=== PATIENT | male | born 1950 | race Caucasian/White ===

== ENCOUNTER 2018-08-04 15:07 | Outpatient (CLI) | payer MEDICARE, OTHER ==
--- NOTE | 2018-08-05 12:36 | CT Report ---
Reason: PERSONAL HISTORY OF NICOTINE DEPENDENCE Procedure Date: 08/04/2018 Accession Number: [id number] / [id number] Procedure: CT - Chest/Lung Screen Low Dose W/O CPT Code: FULL RESULT: EXAM CT LUNG SCREEN EXAM DATE: 08/04/2018 03:31 PM. HISTORY: 68-year-old patient with [id number] smoking history. Currently smoking: Yes. . COMPARISON: None. TECHNIQUE: CT examination of the entire thorax without contrast was performed using low-dose technique. Thin section coronal, axial, sagittal and MIP axial images were obtained. In accordance with CT protocol optimization, one or more of the following dose reduction techniques were utilized for this exam: automated exposure control, adjustment of mA and/or KV based on patient size, or use of iterative reconstructive technique. FINDINGS: Nodules: Right upper lobe: None. Right middle lobe: None. Right lower lobe: None. Left upper lobe: None. Left lower lobe: None. Emphysema: Mild emphysematous changes are noted in the lung apices. Pleura: Unremarkable. Aorta: There is atherosclerosis of the aorta. Mediastinum: Unremarkable. Coronary calcifications: Diffuse calcified plaque is noted. Other pulmonary findings: Mild bronchiectasis is noted in the lung bases. Linear changes are also noted that may represent scarring or atelectasis. Other extrapulmonary findings: There appears to be a biliary stent. No intrahepatic biliary duct dilatation is noted. IMPRESSION: Lung-RADS ASSESSMENT CATEGORY: 1 - negative Probability of malignancy: Less than 1% Emphysematous changes of the lungs. Atherosclerosis of the aorta and coronary arteries. RECOMMENDATION: Recommend low-dose CT in 12 months. RADIA
== END 2018-08-04 15:08 | disposition home or self-care (01) ==
LOC: DI 15:07
PROVIDERS: ATTEND Family Medicine
DX: Z12.2 Encounter for screening for malignant neoplasm of respiratory organs (principal); F17.210 Nicotine dependence, cigarettes, uncomplicated

== ENCOUNTER 2019-09-25 14:57 | Emergency (ER) | payer MEDICARE, OTHER ==
[2019-09-25 15:20] LABS: BILIRUBIN,URINE NEGATIVE (NEGATIVE); GLUCOSE, URINE (UA) NEGATIVE (NEGATIVE); KETONES,URINE (UA) NEGATIVE (NEGATIVE); LEUKOCYTE ESTERASE, URINE LARGE (NEGATIVE); NITRITE,URINE NEGATIVE (NEGATIVE); OCCULT BLOOD,URINE LARGE (NEGATIVE); PH,URINE 6.5 PH (5.0-7.5); PROTEIN,URINE 30 mg/dL (NEGATIVE); UROBILINOGEN,URINE 0.2 (NORMAL) E.U./dL (NORMAL)
[2019-09-25 15:33] LABS: CLARITY,URINE HAZY (CLEAR)
[2019-09-25 15:47] LABS: BACTERIA,URINE Rare /HPF (None Seen); SQUAMOUS EPITHELIAL CELL,UR RARE Squamous (<= Few)
[2019-09-25] MEDS ORDERED: CIPROFLOXACIN 250 MG TABLET PO STA (16:37)
--- NOTE | 2019-09-25 16:42 | ED Physician Documentation ---
History of Present Illness - Stated complaint Stated Complaint: M - Chief complaint Chief Complaint: General - History obtained from History obtained from: Patient (69-year-old gentleman with prostatic hypertrophy presents with hematuria and dysuria and frequency starting today. Recently on Macrobid for UTI, it sounds like that urine was not cultured. No flank pain or fevers.) Review of Systems Constitutional: denies: Fever, Chills GI: denies: Abdominal Pain, Nausea, Vomiting, Diarrhea : reports: Dysuria, Frequency. denies: Incontinent PD PAST MEDICAL HISTORY - Present Medications Home Medications: Ambulatory Orders Medication Instructions Recorded Confirmed Ciprofloxacin HCl [Cipro] 500 mg PO BID #14 tablet 09/25/19 - Allergies Allergies/Adverse Reactions: Allergies Allergy/AdvReac Type Severity Reaction Status Date / Time No Known Drug Allergies Allergy Verified 09/25/19 15:04 PD ED PE NORMAL - Vitals Vital signs reviewed: Yes - General General: Alert and oriented X 3, No acute distress - Abdomen Abdomen: Soft, Non tender - Back Back: No CVA TTP - Neuro Neuro: Alert and oriented X 3, Normal speech Results - Vitals Vitals: Vital Signs - 24 hr 09/25/19 15:01 Temperature 36.6 C Heart Rate 87 Respiratory 16 Rate Blood Pressure 145/63 H O2 Saturation 95 Oxygen O2 Source Room air - Labs Labs: Laboratory Tests 09/25/19 15:13 Urine Color DARK YELLOW Urine Clarity HAZY Urine pH 6.5 Ur Specific [place] <=1.005 Urine Protein 30 H Urine Glucose (UA) NEGATIVE Urine Ketones NEGATIVE Urine Occult Blood LARGE H Urine Nitrite NEGATIVE Urine Bilirubin NEGATIVE Urine Urobilinogen 0.2 (NORMAL) Ur Leukocyte Esterase LARGE H Urine RBC 11-25 H Urine WBC >25 H Ur Squamous Epith Cells RARE Squamous Urine Bacteria Rare Ur Microscopic Review INDICATED Urine Culture Comments INDICATED Departure - Departure Disposition: 01 Home, Self Care Clinical Impression: Cystitis Instructions: ED UTI Cystitis Male Prescriptions: Ciprofloxacin HCl [Cipro] 500 mg PO BID #14 tablet Comments: We will culture your urine, the results should be done in 48-72 hours. If an antibiotic change is necessary we will call you. Return if worse in the meantime, especially if you develop increasing flank pain, fevers, or cannot keep down the medication.
[2019-09-25 17:04] VITALS: BP 122/91
== END 2019-09-25 17:04 | disposition home or self-care (01) ==
LOC: ED 14:57
DX: N30.91 Cystitis, unspecified with hematuria (principal); N40.1 Benign prostatic hyperplasia with lower urinary tract symptoms; R35.0 Frequency of micturition
CPT/HCPCS: 81001; 87086; 99283; A9270; 81003

== ENCOUNTER 2023-02-07 11:20 | Inpatient (IN) | payer MEDICARE, OTHER ==
[~2023-02-07 11:20] MED LIST: PIPERACILLIN/TAZOBACTAM 3.375 GM in SODIUM CHLORIDE 0.9% MINIBAG 100 ML IV SCH
[2023-02-07 12:06] LABS: BASOPHILS % (AUTO) 0.2 %; EOSINOPHILS % (AUTO) 0.1 %; HCT - HEMATOCRIT 42.8 % (42.0-52.0); HGB - HEMOGLOBIN 14.4 g/dL (14.0-18.0); LYMPHOCYTES # (AUTO) 0.8 10^3/uL (1.5-3.5); LYMPHOCYTES % (AUTO) 5.8 %; MEAN CORPUSCULAR HEMOGLOBIN 30.5 pg (27.0-31.0); MEAN CORPUSCULAR HGB CONC 33.6 g/dL (32.0-36.0); MEAN CORPUSCULAR VOLUME 90.7 fL (80.0-94.0); MEAN PLATELET VOLUME 10.5 fL (7.4-11.4); MONOCYTES % (AUTO) 7.5 %; NEUTROPHILS # (AUTO) 11.1 10^3/uL (1.5-6.6); NEUTROPHILS % (AUTO) 85.9 %; PLT - PLATELET COUNT 221 10^3/uL (130-450); RED BLOOD COUNT 4.72 10^6/uL (4.70-6.10); WHITE BLOOD COUNT 12.9 x10^3/uL (4.8-10.8)
[2023-02-07 12:16] LABS: ALBUMIN 3.3 g/dL (3.2-5.5); ALBUMIN/GLOBULIN RATIO 0.9 (1.0-2.2); BILIRUBIN,TOTAL 9.1 mg/dL (0.2-1.0); CALCIUM 8.8 mg/dL (8.5-10.3); CREATININE 0.6 mg/dL (0.6-1.3); POTASSIUM 3.6 mmol/L (3.5-4.5); TOTAL PROTEIN 6.8 g/dL (6.4-8.9)
[2023-02-07 12:19] LABS: INR 1.4 (0.8-1.2); PT - PROTHROMBIN TIME 15.7 secs (9.9-12.6)
[2023-02-07 12:26] LABS: PARTIAL THROMBOPLASTIN TIME 25.6 secs (24.9-33.3)
--- NOTE | 2023-02-07 12:39 | ED Physician Documentation ---
PD HPI ABD PAIN - Stated complaint Stated Complaint: WEAK,STOMACH PX,DISCOMFORT - Chief complaint Chief Complaint: Abd Pain - History obtained from History obtained from: Patient, Family - History of Present Illness Timing - onset: How many days ago (4) Timing - duration: Days (4) Timing - details: Gradual onset Pain level max: 6 Pain level now: 4 Quality: Aching, Pain Associated symptoms: No: Fever, Hematemesis, Diarrhea, Constipation, Melena, Hematochezia, Dysuria - Additional information Additional information: Patient is a 72-year-old male who presents to the emergency department with 4 days worth of abdominal pain. He states that it moves around but most consistently is in the epigastric area. He states he has just felt generally unwell. No nausea or vomiting. No diarrhea or constipation. His family noticed that he looked yellow today. No fevers. No chills. He does smoke but does not drink alcohol. He is on medication for BPH and hyperlipidemia. No changes to his medications. Denies any recent weight loss or any recent illness. No recent travel. Review of Systems Constitutional: denies: Fever, Chills Respiratory: denies: Cough GI: denies: Nausea, Vomiting, Diarrhea Skin: denies: Rash Musculoskeletal: denies: Neck pain, Back pain Neurologic: denies: Headache PD PAST MEDICAL HISTORY - Past Medical History Past Medical History: Yes Respiratory: COPD : Benign prostate hypertrophy - Past Surgical History Past Surgical History: Yes General: Cholecystectomy - Present Medications Home Medications: Ambulatory Orders Medication Instructions Recorded Confirmed Finasteride [Proscar] 5 mg PO DAILY 02/07/23 02/07/23 Fluticasone/Vilanterol [Breo 1 puffs IH DAILY 02/07/23 02/07/23 Ellipta 100-25 Mcg INH] Terazosin [Hytrin] 10 mg PO DAILY 02/07/23 02/07/23 - Allergies Allergies/Adverse Reactions: Allergies Allergy/AdvReac Type Severity Reaction Status Date / Time No Known Drug Allergies Allergy Verified 02/07/23 11:37 - Social History Does the pt smoke?: Yes Smoking Status: Current every day smoker Does the pt drink ETOH?: Yes Does the pt have substance abuse?: No - Immunizations Immunizations are current?: Yes PD ED PE NORMAL - Vitals Vital signs reviewed: Yes - General General: Alert and oriented X 3, No acute distress, Other (Jaundiced appearing male) - HEENT HEENT: PERRL (Positive scleral icterus), Moist mucous membranes - Neck Neck: Supple, no meningeal sign - Cardiac Cardiac: RRR, Strong equal pulses - Respiratory Respiratory: No respiratory distress, Clear bilaterally - Abdomen Abdomen: Soft, Non distended, Other (Mild tenderness to palpation epigastric without peritoneal signs) - Back Back: No CVA TTP, No spinal TTP - Derm Derm: Warm and dry - Extremities Extremities: No edema, No calf tenderness / cord - Neuro Neuro: Alert and oriented X 3 - Psych Psych: Normal mood, Normal affect Results - Vitals Vitals: Vital Signs - 24 hr 02/07/23 02/07/23 02/07/23 11:33 14:00 15:13 Temperature 36.4 C L Heart Rate 84 77 69 Respiratory 20 20 12 Rate Blood Pressure 99/60 138/103 H 136/69 H O2 Saturation 94 96 97 02/07/23 02/07/23 02/07/23 17:09 18:09 19:18 Temperature 36.8 C Heart Rate 80 72 71 Respiratory 16 11 L 14 Rate Blood Pressure 134/76 H 137/72 H 132/62 H O2 Saturation 96 96 94 02/07/23 02/07/23 20:45 22:09 Temperature Heart Rate 81 83 Respiratory 18 13 Rate Blood Pressure 131/72 H 133/80 H O2 Saturation 94 98 Oxygen O2 Source Room air - Labs Labs: Laboratory Tests 02/07/23 02/07/23 02/07/23 11:57 11:57 11:57 WBC 12.9 H RBC 4.72 Hgb 14.4 Hct 42.8 MCV 90.7 MCH 30.5 MCHC 33.6 RDW 14.0 Plt Count 221 MPV 10.5 Neut # (Auto) 11.1 H Lymph # (Auto) 0.8 L [place] # (Auto) 1.0 Eos # (Auto) 0.0 Baso # (Auto) 0.0 Absolute Nucleated RBC 0.00 Nucleated RBC % 0.0 PT 15.7 H INR 1.4 H APTT 25.6 Sodium 137 Potassium 3.6 Chloride 102 Carbon Dioxide 26 Anion Gap 9.0 BUN 19 Creatinine 0.6 Estimated GFR (MDRD) 132 Glucose 132 H Calcium 8.8 Total Bilirubin 9.1 H AST 75 H ALT 89 H Alkaline Phosphatase 302 H Total Protein 6.8 Albumin 3.3 Globulin 3.5 Albumin/Globulin Ratio 0.9 L Lipase 14 Urine Color Urine Clarity Urine pH Ur Specific [place] Urine Protein Urine Glucose (UA) Urine Ketones Urine Occult Blood Urine Nitrite Urine Bilirubin Urine Urobilinogen Ur Leukocyte Esterase Urine RBC Urine WBC Ur Squamous Epith Cells Urine Bacteria Urine Mucus Ur Microscopic Review Urine Culture Comments 02/07/23 15:45 WBC RBC Hgb Hct MCV MCH MCHC RDW Plt Count MPV Neut # (Auto) Lymph # (Auto) [place] # (Auto) Eos # (Auto) Baso # (Auto) Absolute Nucleated RBC Nucleated RBC % PT INR APTT Sodium Potassium Chloride Carbon Dioxide Anion Gap BUN Creatinine Estimated GFR (MDRD) Glucose Calcium Total Bilirubin AST ALT Alkaline Phosphatase Total Protein Albumin Globulin Albumin/Globulin Ratio Lipase Urine Color ORANGE Urine Clarity CLEAR Urine pH 6.5 Ur Specific [place] <=1.005 Urine Protein 30 H Urine Glucose (UA) NEGATIVE Urine Ketones Urine Occult Blood NEGATIVE Urine Nitrite NEGATIVE Urine Bilirubin COLOR INTERFERENCE Urine Urobilinogen 0.2 (NORMAL) Ur Leukocyte Esterase NEGATIVE Urine RBC 0-5 Urine WBC 0-3 Ur Squamous Epith Cells NONE SEEN Urine Bacteria Few Urine Mucus Few Strands Ur Microscopic Review INDICATED Urine Culture Comments NOT INDICATED - Rads (name of study) CT abdomen pelvis Relevant Findings:: Final report received, See rad report PD Medical Decision Making - ED course Complexity details: reviewed results, re-evaluated patient, considered dif ferential, d/w patient, d/w transportation sales consultant ED course: 72-year-old male with hyperbilirubinemia and what appears to be a biliary stent on CT scan. Patient did not know that he had a biliary stent in place. He states his gallbladder was taken out in [place] around 2009. He does not have a GI doctor here. He has not had any fevers but does have an elevated white blood cell count. I discussed the case with GI at [facility], Dr. Quiroz, He recommends transfer for stent removal. Recommend starting IV antibiotics. [facility] thinks that they will have a bed tonight, therefore the patient will be held in the emergency department on IV antibiotics and signed out to the oncoming emergency department physician. Patient is well-appearing, nontoxic. This document was made in part using voice recognition software. While efforts are made to proofread this document, sound alike and grammatical errors may occur. Departure - Departure Disposition: 02 Transfer Acute Care Hosp Clinical Impression: Biliary stent obstruction Qualifiers: Encounter type: initial encounter Qualified Code(s): T85.590A - Other mechanical complication of bile duct prosthesis, initial encounter Condition: Stable Forms: PCP List
[2023-02-07] MEDS ORDERED: iohexoL-300 100 ML VIAL ONE (12:42)
--- NOTE | 2023-02-07 13:24 | CT Report ---
PROCEDURE: CHEST W INDICATIONS: new onset jaundice, abd pain, smoker CONTRAST: Omni 300 100ml TECHNIQUE: After the administration of intravenous contrast, 1 mm axial images were acquired from the pulmonary apices through the posterior costophrenic angles. Axial 5 mm soft tissue kernel reconstructions were performed as well as 8 mm axial MIP and coronal and sagittal 5 mm reformations. For radiation dose reduction, the following was used: automated exposure control, adjustment of mA and/or kV according to patient size. COMPARISON: None. FINDINGS: Image quality: Excellent. Lungs and pleura: No consolidation. No pleural effusions. No pneumothorax. No suspicious pulmonary n odules which require follow up. Linear scarring at the bases as well as emphysematous change are pre sent. Mediastinum: Heart size is normal. No pericardial effusion. No large vessel abnormality. No mediastin al adenopathy by size criteria. Chest wall and lower neck: Thyroid is unremarkable. No axillary or supraclavicular adenopathy by size . Bones: No aggressive osseous abnormality. Upper Abdomen: There is prominence of the biliary system, incompletely visualized. IMPRESSION: Lungs are clear. Prominence of the biliary system. Please see CT abdomen pelvis report for further details. Reviewed by: Edelmira Shaikh MD on 02/07/2023 1:22 PM PDT Approved by: Edelmira Shaikh MD on 02/07/2023 1:22 PM PDT Station ID: [id number]
--- NOTE | 2023-02-07 13:33 | CT Report ---
PROCEDURE: ABDOMEN/PELVIS W INDICATIONS: new onset jaundice, abd pain, smoker CONTRAST: Omni 300 100ml TECHNIQUE: After the administration of IV contrast, 5 mm thick sections acquired from the diaphragms to the symp hysis. 5 mm thick coronal and sagittal reformats were acquired. For radiation dose reduction, the f ollowing was used: automated exposure control, adjustment of mA and/or kV according to patient size. COMPARISON: FINDINGS: Image quality: Excellent. Lung bases and heart: Unremarkable. Liver: No solid mass. Gallbladder and biliary tree: There is intra and extrahepatic biliary dilation. Biliary stent is pres ent. The latter is not visualized. Spleen: No splenomegaly. Pancreas: No pancreatic ductal dilation. Adrenals: No adrenal nodule. Kidneys and ureters: No hydronephrosis. No renal cystic lesion which requires follow up. No solid mas s. Bowel and peritoneum: No bowel distension. No pathologic free fluid. Colonic diverticula are present without inflammatory change. Lymph nodes: No central or retroperitoneal adenopathy. Vessels: No infrarenal aortic aneurysm. PELVIS Reproductive organs: Unremarkable. Bladder: No abnormal wall thickening, accounting for underdistension. Pelvic lymph nodes: No pelvic adenopathy by size criteria. Bones: No aggressive osseous abnormality. Other: Superior portion of the bladder is within the right inguinal canal. Small loop of bowel withou t incarceration or strangulation or obstruction is present in the left inguinal canal. IMPRESSION: Intra and extrahepatic biliary dilation with biliary stent. No priors are available for comparison. S ource of obstruction is not clearly delineated although cholangiocarcinoma should be considered. Reviewed by: Edelmira Shaikh MD on 02/07/2023 1:32 PM PDT Approved by: Edelmira Shaikh MD on 02/07/2023 1:32 PM PDT Station ID: [id number]
[2023-02-07] MEDS ORDERED: iohexoL-300 100 ML VIAL IVP ONE (15:16)
[2023-02-07 15:56] LABS: GLUCOSE, URINE (UA) NEGATIVE (NEGATIVE); LEUKOCYTE ESTERASE, URINE NEGATIVE (NEGATIVE); NITRITE,URINE NEGATIVE (NEGATIVE); OCCULT BLOOD,URINE NEGATIVE (NEGATIVE); PH,URINE 6.5 PH (5.0-7.5); PROTEIN,URINE 30 mg/dL (NEGATIVE); UROBILINOGEN,URINE 0.2 (NORMAL) E.U./dL (NORMAL)
[2023-02-07 16:07] LABS: CLARITY,URINE CLEAR (CLEAR)
[2023-02-07 16:12] LABS: BILIRUBIN,URINE COLOR INTERFERENCE (NEGATIVE)
[2023-02-07 16:13] LABS: BACTERIA,URINE Few /HPF (None Seen); MUCUS,URINE Few Strands; RBC,URINE 0-5 /HPF (0-5); SQUAMOUS EPITHELIAL CELL,UR NONE SEEN (<= Few); WBC,URINE 0-3 /HPF (0-3)
[2023-02-07] MEDS ORDERED: PIPERACILLIN/TAZOBACTAM 3.375 GM in SODIUM CHLORIDE 0.9% MINIBAG 100 ML IV STA (16:39)
[2023-02-07] MEDS ORDERED: SODIUM CHLORIDE 0.9% 1,000 ML IV STA (16:44)
[2023-02-07] MEDS: PIPERACILLIN/TAZOBACTAM 3.375 GM in SODIUM CHLORIDE 0.9% MINIBAG 100 ML IV SCH (23:12)
[2023-02-08] MEDS: PIPERACILLIN/TAZOBACTAM 3.375 GM in SODIUM CHLORIDE 0.9% MINIBAG 100 ML IV SCH ×2 (06:49→16:41)
[2023-02-08 07:39] LABS: BASOPHILS % (AUTO) 0.2 %; EOSINOPHILS % (AUTO) 0.2 %; HCT - HEMATOCRIT 38.4 % (42.0-52.0); HGB - HEMOGLOBIN 13.2 g/dL (14.0-18.0); LYMPHOCYTES # (AUTO) 1.3 10^3/uL (1.5-3.5); LYMPHOCYTES % (AUTO) 11.5 %; MEAN CORPUSCULAR HEMOGLOBIN 30.5 pg (27.0-31.0); MEAN CORPUSCULAR HGB CONC 34.4 g/dL (32.0-36.0); MEAN CORPUSCULAR VOLUME 88.7 fL (80.0-94.0); MEAN PLATELET VOLUME 10.4 fL (7.4-11.4); MONOCYTES # (AUTO) 1.1 10^3/uL (0.0-1.0); MONOCYTES % (AUTO) 9.6 %; NEUTROPHILS # (AUTO) 8.5 10^3/uL (1.5-6.6); PLT - PLATELET COUNT 209 10^3/uL (130-450); RED BLOOD COUNT 4.33 10^6/uL (4.70-6.10); RED CELL DISTRIBUTION WIDTH 14.4 % (12.0-15.0)
[2023-02-08 07:43] LABS: ALBUMIN 2.9 g/dL (3.2-5.5); BILIRUBIN,TOTAL 8.8 mg/dL (0.2-1.0); CALCIUM 8.3 mg/dL (8.5-10.3); CREATININE 0.5 mg/dL (0.6-1.3); POTASSIUM 3.4 mmol/L (3.5-4.5); TOTAL PROTEIN 5.9 g/dL (6.4-8.9)
--- NOTE | 2023-02-08 08:40 | ED Physician Documentation ---
ED Addendum - Addendum Addendum: Patient signed out to me by overnight physician. Patient is pending transfer to [facility] for biliary stent removal causing Obstructive jaundice.GREENHOUSE SPECIALIST notified me this morning that [facility] has called back stating that they still have no beds available and are at capacity and are not able to accept the patient at this time. They have stated that they may be able to perform the procedure if we are able to accept the patient back. 02/08/23 08:33 Discussed with admitting hospitalist Dr. Soriano whether we would be able to admit the patient once he has had his biliary stent removed. She states that we would be able to admit the patient here once he has had this procedure done for continued care. I have evaluated the patient at the bedside. His son is also present with him. Discussed current plan which is to reach back out to [facility] to see if they would be able to do the procedure to have the biliary stent removed and then have the patient brought back to [facility] for continued care. He is agreeable to this. He also understands that if this plan is not feasible then we will look to alternate hospitals that are able to accommodate him.Repeat labs this morning are relatively unchanged with only minimal decrease in bilirubin from 9.1 to 8.8. Patient has remained afebrile. Vital signs have been stable. Continues on IV Zosyn which was started yesterday. 02/08/23 17:28 Pt signed out at shift change. He is currently at [facility] to have his biliary stent removed. He will be transferred back to our hospital once procedure is completed with plan for admission here.
--- NOTE | 2023-02-08 21:29 | ED Physician Documentation ---
ED Addendum - Addendum Addendum: 02/08/23 21:27 Patient returned from [facility] where he had an ERCP performed his old stent was removed had a biliary sphincterotomy and sphincteroplasty. Stones and sludge were removed from the bile duct. There was purulent drainage as well. He was transferred back to the emergency department for admission. Recommendation from GI to continue IV antibiotics, follow LFTs, avoid NSAIDs and anticoagulants for 72 hours. Follow-up for a repeat ERCP in 4 to 6 weeks for stent removal. Will consult the hospitalist for admission for continued IV antibiotics and further care. Discussed with hospitalist who accepts for admission. This document was made in part using voice recognition software. While efforts are made to proofread this document, sound alike and grammatical errors may occur. Departure - Departure Disposition: [address] [facility] DC/Xfer Clinical Impression: Cholangitis Biliary stent obstruction Qualifiers: Encounter type: initial encounter Qualified Code(s): T85.590A - Other mechanical complication of bile duct prosthesis, initial encounter Condition: Stable Discharge Date/Time: 02/08/23 22:11
[2023-02-08] MEDS ORDERED: ACETAMINOPHEN 325 MG TABLET PO PRN (21:50)
[2023-02-08] MEDS ORDERED: MORPHINE 2 MG/ML CARPUJECT IVP PRN (21:50)
[2023-02-08] MEDS ORDERED: SODIUM CHLORIDE FLUSH 0.9% 10 ML SYRINGE IVP PRN (21:50)
[2023-02-08] MEDS ORDERED: ONDANSETRON 4 MG/2 ML VIAL IVP PRN (21:50)
--- NOTE | 2023-02-08 22:09 | HISTORY & PHYSICAL EXAMINATION ---
Chief Complaint - Chief Complaint Chief Complaint: Abdominal pain History of Present Illness - History of Present Illness HPI Comment/Other: 72 y old male with PMH Tobacco abuse, COPD, BPH, hyperlipidemia, H/O cholecystectomy 2009, biliary stent, presented to the ER due to abdominal pain for 4 days.Pt describes the pain in epigastric area, intermittent, moderate in intensity, sharp in nature associated with nausea.Denies fever, vomiting, diarrhea, constipation, chest pain, SOB, symtoms. On presentaion , pt was afebrile Labs showed leukocytosis, abnormal LFT`s with hyyperbilirubinemia, Tbili 9.1 CT abdomen showed biliary stent In ER, patient was given zosyn GI at [facility] was consulted. Patient was transferred to [facility] s/p ERCP, sphinterotomy, sphincteroplasty, biliary sluge and pus removal and replacement of biliary stent. GI rec IV Abx, monitor LFTs and repeat ESRP in 6 week for the removal of biliary stent Patient was transferred back to [facility] Patient is admitted due to Acute cholangitis, ostructive jaundice s/p ERCP, abdominal pain History - Past Medical History Respiratory: reports: COPD : reports: Benign prostate hypertrophy - Past Surgical History General: reports: Cholecystectomy Meds/Allgy - Home Medications Home Medications: Ambulatory Orders Medication Instructions Recorded Confirmed Finasteride [Proscar] 5 mg PO DAILY 02/07/23 02/07/23 Fluticasone/Vilanterol [Breo 1 puffs IH DAILY 02/07/23 02/07/23 Ellipta 100-25 Mcg INH] Terazosin [Hytrin] 10 mg PO DAILY 02/07/23 02/07/23 - Allergies Allergies/Adverse Reactions: Allergies Allergy/AdvReac Type Severity Reaction Status Date / Time No Known Drug Allergies Allergy Verified 02/07/23 11:37 Review of Systems - Other Findings Other Findings: 10 points systems were reviewed and were negative except mentioned in HPI Exam - Vital Signs Vital Signs: Vital Signs x48h Temp Pulse Resp BP Pulse Ox O2 Flow Rate 02/08/23 20:25 36.7 C 56 L 13 133/69 H 97 2 02/08/23 14:24 36.7 C 65 18 120/59 L 95 - Physical Exam General Appearance: positive: No acute distress, Alert Eyes Bilateral: positive: Normal inspection, Other (JAUNDICE) ENT: positive: ENT inspection nml Neck: positive: Nml inspection Respiratory: positive: No respiratory distress, Breath sounds nml Cardiovascular: positive: Regular rate & rhythm Abdomen: positive: Non-tender, Nml bowel sounds Skin: positive: No rash Extremities: positive: No pedal edema Neurologic/Psychiatric: positive: Oriented x3, Motor nml Conclusion/Plan - Lab Results Fish Bones: 02/08/23 07:12 02/08/23 07:12 - Other Other Results/Comments: A: Acute cholangitis Obstructive jaundiice s/p ERCP and biliary stent replacemnet Hyperbiliribinemia Abnormal LFTs Abdominal pain Leukocytosis Tobacco abuse COPD BPH Hyperlipidemia Plan: Admit in Med Surg Clear liquid diet Follow cultures NS @ 100 cc/h Strat zosyn Supportive care Repeat CBC, CMP in am Monitor LFTs DVT prophylaxic: SCD Full code Patient is admitted as inpatient as more than 2 midnight stay is expected
[2023-02-08] MEDS: SODIUM CHLORIDE 0.9% 1,000 ML IV SCH (22:34)
[2023-02-09] MEDS: SODIUM CHLORIDE FLUSH 0.9% 10 ML SYRINGE IVP SCH ×3 (00:31→18:05)
[2023-02-09 05:53] LABS: BASOPHILS % (AUTO) 0.2 %; HCT - HEMATOCRIT 38.1 % (42.0-52.0); HGB - HEMOGLOBIN 12.7 g/dL (14.0-18.0); LYMPHOCYTES % (AUTO) 13.2 %; MEAN CORPUSCULAR HEMOGLOBIN 30.2 pg (27.0-31.0); MEAN CORPUSCULAR HGB CONC 33.3 g/dL (32.0-36.0); MEAN CORPUSCULAR VOLUME 90.7 fL (80.0-94.0); MEAN PLATELET VOLUME 10.8 fL (7.4-11.4); MONOCYTES % (AUTO) 3.8 %; NEUTROPHILS % (AUTO) 82.1 %; PLT - PLATELET COUNT 210 10^3/uL (130-450); RED CELL DISTRIBUTION WIDTH 14.6 % (12.0-15.0); WHITE BLOOD COUNT 10.1 x10^3/uL (4.8-10.8)
[2023-02-09] MEDS ORDERED: PIPERACILLIN/TAZOBACTAM 3.375 GM in SODIUM CHLORIDE 0.9% MINIBAG 100 ML IV SCH (06:00)
[2023-02-09 06:05] LABS: ALBUMIN 2.8 g/dL (3.2-5.5); ALBUMIN/GLOBULIN RATIO 0.9 (1.0-2.2); BILIRUBIN,TOTAL 4.6 mg/dL (0.2-1.0); CALCIUM 8.1 mg/dL (8.5-10.3); CREATININE 0.4 mg/dL (0.6-1.3); POTASSIUM 3.9 mmol/L (3.5-4.5); TOTAL PROTEIN 5.8 g/dL (6.4-8.9)
[2023-02-09 06:07] LABS: ABNORMAL LYMPHS % (MANUAL) 0 %
[2023-02-09 06:36] LABS: BAND NEUTROPHILS % (MANUAL) 5 %; LYMPHOCYTES # (MANUAL) 0.8 10^3/uL (1.5-3.5); LYMPHOCYTES % (MANUAL) 8 %; MONOCYTES # (MANUAL) 0.1 10^3/uL (0.0-1.0); NEUTROPHILS # (MANUAL) 9.2 10^3/uL (1.5-6.6); PLATELET ESTIMATE, MANUAL NORMAL (130-450,000) (NORMAL); RBC MORPHOLOGY (MULTIPLE) NORMAL APPEARANCE (NORMAL)
[2023-02-09 06:37] LABS: DIFFERENTIAL COMMENT MANUAL DIFFERENTIAL; WBC MORPHOLOGY (MULTIPLE) 1+ TOXIC GRANULATION (NORMAL)
[2023-02-09] MEDS: PANTOPRAZOLE 40 MG VIAL IVP SCH (08:43)
[2023-02-09] MEDS: SODIUM CHLORIDE 0.9% 1,000 ML IV SCH ×2 (08:44→22:43)
--- NOTE | 2023-02-09 08:52 | PHARMACY PROGRESS NOTE ---
- Best Possible Medication History Admit Date and Time: 02/08/23 7800 Medication History completed: Yes Patient Interview: Completed Secondary Source(s): Pharmacy records As the person ultimately responsible for medication therapy, providers are able to order a medication from an existing home medication list in [facility] via the "Reconcile Routine" prior to Confirmation of that medication by ground support equipment mechanic. Such practice is discouraged except when the physician, in their clinical judgment, deems that a medical need exists for a medication without regard to previous use.
--- NOTE | 2023-02-09 09:24 | XRAY Report ---
PROCEDURE: Chest 1 View X-Ray INDICATIONS: VTach, Hx COPD TECHNIQUE: One view of the chest was acquired. COMPARISON: CT chest dated 02/07/2023. FINDINGS: Surgical changes and devices: None. Lungs and pleura: No pleural effusions or pneumothorax. Lungs are clear. Hyperaeration and flatteni ng of the hemidiaphragms Mediastinum: Mediastinal contours appear normal. Heart size is normal. Bones and chest wall: No suspicious bony lesions. Overlying soft tissues appear unremarkable. IMPRESSION: No acute cardiopulmonary process. No focal consolidation. Findings compatible with chronic obstructiv e pulmonary physiology. Reviewed by: Jose Luis Brown MD on 02/09/2023 8:23 AM STEVEN Approved by: Jose Luis Brown MD on 02/09/2023 8:23 AM STEVEN Station ID: [id number]
[2023-02-09 09:32] LABS: CALCIUM 8.1 mg/dL (8.5-10.3)
--- NOTE | 2023-02-09 10:04 | PROVIDER PROGRESS NOTE ---
Assessment/Plan - Problem List (1) Acute cholangitis Assessment/Plan: He presented with elevated white blood count, abdominal pain, very elevated LFTs. Imaging showed that a biliary stent is in place. He underwent an ERCP at [facility]. They were findings were sludge, gallstones and polyps i n the bile duct. He has no gallbladder, he is status post colectomy Plan: Continue with IV antibiotics Follow CBC daily Await any culture results from our ER or from what we may expect from the [facility] Continue with IV fluids since he is only on a clear liquid diet Continue with as needed meds for pain (2) Biliary stent obstruction Qualifiers: Qualified Code(s): T85.590A - Other mechanical complication of bile duct prosthesis, initial encounter Assessment/Plan: He is S/P a biliary stent,which the patient did not even remember having. He did remember having his gallbladder removed He presented with obstructive jaundice and hyperbiliribinemia and abnormal LFTs, Leukocytosis, Abdominal pain He had an ERCP yesterday at [facility] then was transferred back to our hospital GI specialist wanted him on antibx, clear liquid diet and to avoid anticoagulant or antiplatelet meds for 72-hour, as per the ED note (I have no records myself to review, from [facility]). Plan: Continue empiric iv Zosyn Continue clear liquid diet Remain off of his home daily aspirin dose (3) Non-sustained V. Tach At 0830 today, pt had a non-sustained run of monomorphic VT, 12 beats. He was asymptomatic with it Plan: We will check his magnesium and 2 troponins today. We will obtain an EKG and a chest x-ray. I interpreted his EKG which showed; sinus bradycardia, rate 40 with frequent PACs, rare PVCs, low voltage across the precordium consistent with cor pulmonale, diffuse T wave flattening. The CXR showed COPD, nothing acute. (4) New onset Afib This afternoon, his RN showed me a telemetry strip that he wanted new onset A- fib. The rate is at 90-100. BP stable and he does not sense palpitaions. However as this is occurring, he is having urinary retention of greater than 500 cc. Perhaps parasympathetic stimulation from an over-distended bladder has somehow added to this A-fib Plan: He already had an EKG today. We will check a magnesium, 2 troponins and his thyroid function tests. (5) Acute urinary retention He had 600 cc urinary rtn after voiding, described to me by his RN Plan: Will order as needed straight cath if he has more than 500 cc We need to restart his BPH meds (6) COPD without exacerbation As per Hx. The chest x-ray that was done today shows that he has changes of emphysema of his lungs. EKG shows low voltage in the precordium also consistent with very significant COPD. At home he is on inhaler meds. Clinically he is not in a COPD exacerbation currently Plan: We will continue his bronchodilators (7) Tobacco abuse He tells me he is down to 3 cigarettes/day, used to be a heavier smoker. Plan: Smoking cessation was discussed with the patient Will order Nicotine patch (7) Hyperlipidemia Plan: I will order resumption of his statin med when he is on solid food - Current Meds Current Meds: Current Medications Generic Name Dose Route Start Last Admin Trade Name Freq PRN Reason Stop Dose Admin Sodium Chloride 1,000 mls @ 100 mls/hr 02/08/23 22:00 02/09/23 08:44 Normal Saline 0.9% IV 100 mls/hr .Q10H DRISS Administration Pantoprazole Sodium 40 mg 02/09/23 09:00 02/09/23 08:43 Pantoprazole 40 Mg Vial IVP 40 mg DAILY DRISS Administration Sodium Chloride 10 ml 02/09/23 01:00 02/09/23 08:44 Sodium Chloride Flush 0.9% 10 Ml Syringe IVP 10 ml 0100,0900,1700 DRISS Administration - Lab Result Fish Bone Diagrams: 02/09/23 05:27 02/09/23 05:27 - EKG Results EKG Interpreted Independently: Yes EKG Comparison: Old EKG unavailable EKG Findings: Sinus bradycardia, rate 40 with frequent PACs, rare PVCs, low voltage across the precordium consistent with cor pulmonale, diffuse T wave flattening. No prior EKG available for comparison. - Additional Planning My Orders: My Active Orders 02/09/23 08:59 Telemetry- [RC] Q4HR 02/10/23 05:00 CALCIUM [CHEM] DAILYLAB CBC - COMP BLD CT W/AUTO DIFF [HEME] DAILYLAB COMPREHENSIVE METABOLIC PANEL [CHEM] DAILYLAB MAGNESIUM [CHEM] DAILYLAB PHOSPHORUS [CHEM] DAILYLAB 02/11/23 05:00 CBC - COMP BLD CT W/AUTO DIFF [HEME] DAILYLAB COMPREHENSIVE METABOLIC PANEL [CHEM] DAILYLAB 02/12/23 05:00 CBC - COMP BLD CT W/AUTO DIFF [HEME] DAILYLAB COMPREHENSIVE METABOLIC PANEL [CHEM] DAILYLAB 02/13/23 05:00 CBC - COMP BLD CT W/AUTO DIFF [HEME] DAILYLAB COMPREHENSIVE METABOLIC PANEL [CHEM] DAILYLAB Subjective - Subjective Patient Reports: Feeling Better (Denies pain with his clear liquid diet) Objective Vital Signs: Vital Signs - 24 hr 02/08/23 02/08/23 02/08/23 13:27 14:24 20:25 Temperature 36.7 C 36.7 C Heart Rate 69 65 56 L Heart Rate [ Brachial] Heart Rate [ Monitoring electrodes] Respiratory 18 18 13 Rate Blood Pressure 97/46 L 120/59 L 133/69 H Blood Pressure [Right Brachial artery] O2 Saturation 93 95 97 If not protocol 2 : Oxygen Flow, liters/minute 02/08/23 02/08/23 02/08/23 22:00 22:02 23:14 Temperature 37.5 C Heart Rate 57 L Heart Rate [ 55 L Brachial] Heart Rate [ Monitoring electrodes] Respiratory 14 16 Rate Blood Pressure 129/55 L Blood Pressure 124/66 [Right Brachial artery] O2 Saturation 100 94 If not protocol 2 : Oxygen Flow, liters/minute 02/09/23 02/09/23 06:00 07:28 Temperature 36.9 C 36.5 C Heart Rate Heart Rate [ 58 L Brachial] Heart Rate [ 54 L Monitoring electrodes] Respiratory 20 18 Rate Blood Pressure Blood Pressure 130/78 118/59 L [Right Brachial artery] O2 Saturation 94 96 If not protocol : Oxygen Flow, liters/minute Oxygen O2 Source Room air I&O (Last 24 Hrs): Intake and Output Totals x24h 02/07/23 02/08/23 02/09/23 23:59 23:59 23:59 Intake Total 8752 166 8996 Output Total 300 Balance 407 189 3661 General: Alert, Oriented x3 HEENT: Mucous membr. moist/pink, Other (Sclerae icteric) Neck: Supple (Has a long son, difficult to assess JVP) Neuro: Alert, Non Focal Cardiovascular: Regular rate, No murmurs Respiratory: No respiratory distress, Breath sounds nml Abdomen: Normal bowel sounds, Soft, No tenderness, Other (Moderately distended, hypertympanic) Extremities: No clubbing, No edema, No tenderness/swelling - Results Results: Laboratory Results WBC 10.1 x10^3/uL (4.8-10.8) 02/09/23 05:27 RBC 4.20 10^6/uL (4.70-6.10) L 02/09/23 05:27 Hgb 12.7 g/dL (14.0-18.0) L 02/09/23 05:27 Hct 38.1 % (42.0-52.0) L 02/09/23 05:27 MCV 90.7 fL (80.0-94.0) 02/09/23 05:27 MCH 30.2 pg (27.0-31.0) 02/09/23 05:27 MCHC 33.3 g/dL (32.0-36.0) 02/09/23 05:27 RDW 14.6 % (12.0-15.0) 02/09/23 05:27 Plt Count 210 10^3/uL (130-450) 02/09/23 05:27 MPV 10.8 fL (7.4-11.4) 02/09/23 05:27 Neut # (Auto) Not Reportable 02/09/23 05:27 Lymph # (Auto) Not Reportable 02/09/23 05:27 [place] # (Auto) Not Reportable 02/09/23 05:27 Eos # (Auto) Not Reportable 02/09/23 05:27 Baso # (Auto) Not Reportable 02/09/23 05:27 Absolute Nucleated RBC Not Reportable 02/09/23 05:27 Total Counted 100 02/09/23 05:27 Band Neuts % (Manual) 5 % (0-10) 02/09/23 05:27 Abnorm Lymph % (Manual) 0 % 02/09/23 05:27 Nucleated RBC % Not Reportable 02/09/23 05:27 Neutrophils # (Manual) 9.2 10^3/uL (1.5-6.6) H 02/09/23 05:27 Lymphocytes # (Manual) 0.8 10^3/uL (1.5-3.5) L 02/09/23 05:27 Monocytes # (Manual) 0.1 10^3/uL (0.0-1.0) 02/09/23 05:27 Eosinophils # (Manual) 0.0 10^3/uL (0-0.7) 02/09/23 05:27 Basophils # (Manual) 0.0 10^3/uL (0-0.1) 02/09/23 05:27 Differential Comment MANUAL DIFFERENTIAL 02/09/23 05:27 WBC Morphology 1+ TOXIC GRANULATION (NORMAL) 02/09/23 05:27 Platelet Estimate NORMAL (130-450,000) (NORMAL) 02/09/23 05:27 RBC Morph Micro Appear NORMAL APPEARANCE (NORMAL) 02/09/23 05:27 PT 15.7 secs (9.9-12.6) H 02/07/23 11:57 INR 1.4 (0.8-1.2) H 02/07/23 11:57 APTT 25.6 secs (24.9-33.3) 02/07/23 11:57 Sodium 139 mmol/L (135-145) 02/09/23 05:27 Potassium 3.9 mmol/L (3.5-4.5) 02/09/23 05:27 Chloride 109 mmol/L (101-111) 02/09/23 05:27 Carbon Dioxide 24 mmol/L (21-32) 02/09/23 05:27 Anion Gap 6.0 (6-13) 02/09/23 05:27 BUN 15 mg/dL (6-20) 02/09/23 05:27 Creatinine 0.4 mg/dL (0.6-1.3) L 02/09/23 05:27 Estimated GFR (MDRD) 211 (>89) 02/09/23 05:27 Glucose 137 mg/dL (74-104) H 02/09/23 05:27 Calcium 8.1 mg/dL (8.5-10.3) L 02/09/23 05:27 Calcium 8.1 mg/dL (8.5-10.3) L 02/09/23 05:27 Magnesium 2.0 mg/dL (1.7-2.3) 02/09/23 05:27 Total Bilirubin 4.6 mg/dL (0.2-1.0) H 02/09/23 05:27 AST 63 IU/L (10-42) H 02/09/23 05:27 ALT 67 IU/L (10-60) H 02/09/23 05:27 Alkaline Phosphatase 302 IU/L (42-121) H 02/09/23 05:27 Troponin I High Sens 15.3 ng/L (2.3-19.7) 02/09/23 09:10 Total Protein 5.8 g/dL (6.4-8.9) L 02/09/23 05:27 Albumin 2.8 g/dL (3.2-5.5) L 02/09/23 05:27 Globulin 3.0 g/dL (2.1-4.2) 02/09/23 05:27 Albumin/Globulin Ratio 0.9 (1.0-2.2) L 02/09/23 05:27 Lipase 21 U/L (11-82) 02/08/23 07:12 Urine Color ORANGE 02/07/23 15:45 Urine Clarity CLEAR (CLEAR) 02/07/23 15:45 Urine pH 6.5 PH (5.0-7.5) 02/07/23 15:45 Ur Specific [place] <=1.005 (1.002-1.030) 02/07/23 15:45 Urine Protein 30 mg/dL (NEGATIVE) H 02/07/23 15:45 Urine Glucose (UA) NEGATIVE mg/dL (NEGATIVE) 02/07/23 15:45 Urine Ketones mg/dL (NEGATIVE) 02/07/23 15:45 Urine Occult Blood NEGATIVE (NEGATIVE) 02/07/23 15:45 Urine Nitrite NEGATIVE (NEGATIVE) 02/07/23 15:45 Urine Bilirubin COLOR INTERFERENCE (NEGATIVE) 02/07/23 15:45 Urine Urobilinogen 0.2 (NORMAL) E.U./dL (NORMAL) 02/07/23 15:45 Ur Leukocyte Esterase NEGATIVE (NEGATIVE) 02/07/23 15:45 Urine RBC 0-5 /HPF (0-5) 02/07/23 15:45 Urine WBC 0-3 /HPF (0-3) 02/07/23 15:45 Ur Squamous Epith Cells NONE SEEN (<= Few) 02/07/23 15:45 Urine Bacteria Few /HPF (None Seen) 02/07/23 15:45 Urine Mucus Few Strands 02/07/23 15:45 Ur Microscopic Review INDICATED 02/07/23 15:45 Urine Culture Comments NOT INDICATED 02/07/23 15:45
[2023-02-09] MEDS: FINASTERIDE 5 MG TABLET PO SCH (10:24)
[2023-02-09] MEDS: TERAZOSIN 2 MG CAPSULE PO SCH (10:26)
[2023-02-09] MEDS: PIPERACILLIN/TAZOBACTAM 3.375 GM in SODIUM CHLORIDE 0.9% MINIBAG 100 ML IV SCH ×2 (14:00→22:00)
[2023-02-10 05:19] LABS: BASOPHILS % (AUTO) 0.2 %; EOSINOPHILS % (AUTO) 0.2 %; HGB - HEMOGLOBIN 12.6 g/dL (14.0-18.0); LYMPHOCYTES # (AUTO) 2.7 10^3/uL (1.5-3.5); LYMPHOCYTES % (AUTO) 20.6 %; MEAN CORPUSCULAR HEMOGLOBIN 30.4 pg (27.0-31.0); MEAN CORPUSCULAR HGB CONC 33.2 g/dL (32.0-36.0); MEAN CORPUSCULAR VOLUME 91.8 fL (80.0-94.0); MEAN PLATELET VOLUME 10.9 fL (7.4-11.4); MONOCYTES # (AUTO) 0.8 10^3/uL (0.0-1.0); MONOCYTES % (AUTO) 5.9 %; NEUTROPHILS # (AUTO) 9.3 10^3/uL (1.5-6.6); NEUTROPHILS % (AUTO) 72.1 %; PLT - PLATELET COUNT 233 10^3/uL (130-450); RED BLOOD COUNT 4.14 10^6/uL (4.70-6.10); RED CELL DISTRIBUTION WIDTH 15.2 % (12.0-15.0); WHITE BLOOD COUNT 12.9 x10^3/uL (4.8-10.8)
[2023-02-10 05:32] LABS: ALBUMIN 2.7 g/dL (3.2-5.5); BILIRUBIN,TOTAL 3.2 mg/dL (0.2-1.0); CALCIUM 7.9 mg/dL (8.5-10.3); CREATININE 0.5 mg/dL (0.6-1.3); PHOSPHORUS 2.5 mg/dL (3.7-7.2); POTASSIUM 3.4 mmol/L (3.5-4.5); TOTAL PROTEIN 5.5 g/dL (6.4-8.9)
[2023-02-10 05:46] LABS: THYROID STIMULATING HORMONE 13.99 uIU/mL (0.34-5.60)
[2023-02-10] MEDS: PIPERACILLIN/TAZOBACTAM 3.375 GM in SODIUM CHLORIDE 0.9% MINIBAG 100 ML IV SCH ×3 (06:10→21:31)
[2023-02-10] MEDS: SODIUM CHLORIDE FLUSH 0.9% 10 ML SYRINGE IVP SCH ×3 (06:11→21:31)
[2023-02-10 06:25] LABS: PLATELET ESTIMATE, MANUAL NORMAL (130-450,000) (NORMAL); RBC MORPHOLOGY (MULTIPLE) NORMAL APPEARANCE (NORMAL)
[2023-02-10] MEDS: TERAZOSIN 2 MG CAPSULE PO SCH (07:46)
[2023-02-10] MEDS: FINASTERIDE 5 MG TABLET PO SCH (07:46)
[2023-02-10] MEDS: PANTOPRAZOLE 40 MG VIAL IVP SCH (07:46)
[2023-02-10] MEDS: SODIUM CHLORIDE 0.9% 1,000 ML IV SCH (07:46)
--- NOTE | 2023-02-10 08:24 | PROVIDER PROGRESS NOTE ---
Assessment/Plan - Problem List (1) Acute cholangitis Assessment/Plan: He presented with elevated white blood count, abdominal pain, very elevated LFTs. Imaging showed that a biliary stent is in place, which he did not know he had, said it was [id number] placed when he had his cholecystectomy 7 years ago. On the day of admission, he was first transferred from our ER and underwent an ERCP at [facility]. The findings were sludge, gallstones and polyps in the bile duct. He has no gallbladder. He then returned to our ER via ambulance and was admitted. The cake mixer recommended antibiotics, and no antiplatelet or anticoagulants for 72 hours. Plan: Continue with IV antibiotics Follow CBC daily Await any culture results from our ER or from [facility] Start tapering down his IV fluids as I will advance his diet from clear liquid diet to soft low fat diet today Continue with as needed meds for pain (2) Biliary stent obstruction Qualifiers: Qualified Code(s): T85.590A - Other mechanical complication of bile duct prosthesis, initial encounter Assessment/Plan: He is S/P a biliary stent, which the patient did not even remember having. He did remember having his gallbladder removed He presented with obstructive jaundice and hyperbiliribinemia and abnormal LFTs, Leukocytosis, Abdominal pain He had an ERCP done at [facility] then was transferred back to our hospital GI specialist wanted him on antibx, clear liquid diet and to avoid anticoagulant or antiplatelet meds for 72-hour. These recommendations are as per the ED note (I have no records myself to review, from [facility]). Plan: Continue empiric iv Zosyn Advance his clear liquid diet today Remain off of his home daily aspirin dose (3) Non-sustained V. Tach On 02/09, pt had a non-sustained run of monomorphic VT, 12 beats. He was asymptomatic with it We checked his magnesium and 2 troponins and those were unremarkable. But Phos was low. His EKG showed; sinus bradycardia, rate 40 with frequent PACs, rare PVCs, low voltage across the precordium consistent with cor pulmonale, diffuse T wave flattening. A CXR was done and showed COPD, nothing acute. Plan: We will obtain an Echo to evaluate his LV (4) Paroxysmal Afib On 02/09 a telemetry strip showed new onset A-fib. The ventr rate was at 90- 100.When it developed, ihe was having urinary retention of greater than 500 cc. Perhaps parasympathetic stimulation from an over-distended bladder has somehow caused this A-fib His magnesium and 2 troponins were OK. I also checked his TSH which came back very elevated at 13, suggesting hypothyroidism, but not hyper Plan: Since he is back in sinus rhythm and is bradycardic at 40-50, he has underlying conduction system disease therefore, he probably has SSS. Patient was already on an aspirin daily before this event, however his dose was 325 2 tablets a day. The aspirin cannot be resumed until 72 hours after the ERCP, per the GI specialist (5) Hypothyroidosm TSH which came back very elevated at 13, suggesting hypothyroidism. I therefore checked his free T4 which is in the low-normal range, at 0.81. All labs were reviewed. Perhaps hypothyroidism is the cause of his marked bradycardia Plan: I will start him on a Synthroid dose of 75 mcg daily before meals. This will need F/U by his PCP after discharge. (6) BPH After admission, he had 600 cc urinary retention after voiding, described to me by his RN yesterday Plan: I ordered as needed straight cath if he has more than 500 cc I restarted his BPH meds Proscar and Hytrin. (7) COPD without exacerbation As per Hx. The chest x-ray that was done today shows that he has changes of emphysema of his lungs. EKG shows low voltage in the precordium also consistent with very significant COPD. At home he is on inhaler meds. Clinically he is not in a COPD exacerbation currently Plan: We will continue his bronchodilators (8) Tobacco use He tells me he is down to 3 cigarettes/day, used to be a heavier smoker. Plan: Smoking cessation was discussed with the patient Cont Nicotine patch (9) Hyperlipidemia Plan: I will order resumption of his statin med when he is on solid food - Current Meds Current Meds: Current Medications Generic Name Dose Route Start Last Admin Trade Name Freq PRN Reason Stop Dose Admin Finasteride 5 mg 02/09/23 11:00 02/10/23 07:46 Finasteride 5 Mg Tablet PO 5 mg DAILY DRISS Administration Sodium Chloride 1,000 mls @ 100 mls/hr 02/08/23 22:00 02/10/23 07:46 Normal Saline 0.9% IV 100 mls/hr .Q10H DRISS Administration Piperacillin Sod/Tazobactam 100 mls @ 25 mls/hr 02/09/23 08:50 02/10/23 06:10 Sod 3.375 gm/ Sodium Chloride IV 25 mls/hr Q8H DRISS Administration Pantoprazole Sodium 40 mg 02/09/23 09:00 02/10/23 07:46 Pantoprazole 40 Mg Vial IVP 40 mg DAILY DRISS Administration Sodium Chloride 10 ml 02/09/23 01:00 02/10/23 07:46 Sodium Chloride Flush 0.9% 10 Ml Syringe IVP 10 ml 0100,0900,1700 DRISS Administration Terazosin HCl 10 mg 02/09/23 10:25 02/10/23 07:46 Terazosin 2 Mg Capsule PO 10 mg DAILY DRISS Administration - Lab Result Fish Bone Diagrams: 02/10/23 04:24 02/10/23 04:24 - Additional Planning My Orders: My Active Orders 02/09/23 08:59 Telemetry- [RC] Q4HR 02/09/23 10:08 Nebulizer/MDI Tx. [RC] QID Resp Teach Nebulizer/MDI [RC] .ONCE Ipratropium/Albuterol [Duoneb] 3 ml INH RTQID PRN 02/09/23 10:25 Terazosin HCl [Hytrin] 10 mg PO DAILY 02/09/23 11:00 Finasteride [Proscar] 5 mg PO DAILY 02/09/23 17:47 Straight Catheter Insertion [RC] PRN 02/10/23 Breakfast DIET [Low Fat Diet] [DIET] 02/11/23 05:00 CBC - COMP BLD CT W/AUTO DIFF [HEME] DAILYLAB COMPREHENSIVE METABOLIC PANEL [CHEM] DAILYLAB 02/12/23 05:00 CBC - COMP BLD CT W/AUTO DIFF [HEME] DAILYLAB COMPREHENSIVE METABOLIC PANEL [CHEM] DAILYLAB 02/12/23 07:00 Echo Transthoracic Complete [ECHO] Routine 02/13/23 05:00 CBC - COMP BLD CT W/AUTO DIFF [HEME] DAILYLAB COMPREHENSIVE METABOLIC PANEL [CHEM] DAILYLAB Subjective - Subjective Patient Reports: Feeling Better, No Complaints Objective Vital Signs: Vital Signs - 24 hr 02/09/23 02/09/23 02/09/23 11:25 15:45 20:19 Temperature 37.0 C 36.5 C 36.5 C Heart Rate [ 49 L 74 75 Brachial] Heart Rate [ Monitoring electrodes] Respiratory 18 16 16 Rate Blood Pressure 134/62 H 116/62 146/86 H [Right Brachial artery] O2 Saturation 97 98 97 02/10/23 02/10/23 00:36 07:39 Temperature 36.5 C 36.5 C Heart Rate [ 49 L Brachial] Heart Rate [ 58 L Monitoring electrodes] Respiratory 16 18 Rate Blood Pressure 116/58 L 123/64 [Right Brachial artery] O2 Saturation 94 98 Oxygen O2 Source Room air I&O (Last 24 Hrs): Intake and Output Totals x24h 02/08/23 02/09/23 02/10/23 23:59 23:59 23:59 Intake Total 200 4770 2255 Output Total 1775 276 Balance 200 2995 1979 General: Alert, Oriented x3 HEENT: Mucous membr. moist/pink Neck: Supple (He has a long son, cannot evaluate his JVP) Neuro: Alert, Non Focal Cardiovascular: Regular rate, No murmurs Respiratory: No respiratory distress, Breath sounds nml Abdomen: Normal bowel sounds, Soft, Other (Mildly distended but less than yester day, hypertympanic) Extremities: No clubbing, No edema, No tenderness/swelling - Results Results: Laboratory Results WBC 12.9 x10^3/uL (4.8-10.8) H 02/10/23 04:24 RBC 4.14 10^6/uL (4.70-6.10) L 02/10/23 04:24 Hgb 12.6 g/dL (14.0-18.0) L 02/10/23 04:24 Hct 38.0 % (42.0-52.0) L 02/10/23 04:24 MCV 91.8 fL (80.0-94.0) 02/10/23 04:24 MCH 30.4 pg (27.0-31.0) 02/10/23 04:24 MCHC 33.2 g/dL (32.0-36.0) 02/10/23 04:24 RDW 15.2 % (12.0-15.0) H 02/10/23 04:24 Plt Count 233 10^3/uL (130-450) 02/10/23 04:24 MPV 10.9 fL (7.4-11.4) 02/10/23 04:24 Neut # (Auto) 9.3 10^3/uL (1.5-6.6) H 02/10/23 04:24 Lymph # (Auto) 2.7 10^3/uL (1.5-3.5) 02/10/23 04:24 [place] # (Auto) 0.8 10^3/uL (0.0-1.0) 02/10/23 04:24 Eos # (Auto) 0.0 10^3/uL (0.0-0.7) 02/10/23 04:24 Baso # (Auto) 0.0 10^3/uL (0.0-0.1) 02/10/23 04:24 Absolute Nucleated RBC 0.00 x10^3/uL 02/10/23 04:24 Total Counted 100 02/09/23 05:27 Band Neuts % (Manual) 5 % (0-10) 02/09/23 05:27 Abnorm Lymph % (Manual) 0 % 02/09/23 05:27 Nucleated RBC % 0.0 /100WBC 02/10/23 04:24 Neutrophils # (Manual) 9.2 10^3/uL (1.5-6.6) H 02/09/23 05:27 Lymphocytes # (Manual) 0.8 10^3/uL (1.5-3.5) L 02/09/23 05:27 Monocytes # (Manual) 0.1 10^3/uL (0.0-1.0) 02/09/23 05:27 Eosinophils # (Manual) 0.0 10^3/uL (0-0.7) 02/09/23 05:27 Basophils # (Manual) 0.0 10^3/uL (0-0.1) 02/09/23 05:27 Differential Comment MANUAL DIFFERENTIAL 02/09/23 05:27 WBC Morphology 1+ TOXIC GRANULATION (NORMAL) 02/09/23 05:27 Platelet Estimate NORMAL (130-450,000) (NORMAL) 02/10/23 04:24 RBC Morph Micro Appear NORMAL APPEARANCE (NORMAL) 02/10/23 04:24 PT 15.7 secs (9.9-12.6) H 02/07/23 11:57 INR 1.4 (0.8-1.2) H 02/07/23 11:57 APTT 25.6 secs (24.9-33.3) 02/07/23 11:57 Sodium 140 mmol/L (135-145) 02/10/23 04:24 Potassium 3.4 mmol/L (3.5-4.5) L 02/10/23 04:24 Chloride 110 mmol/L (101-111) 02/10/23 04:24 Carbon Dioxide 23 mmol/L (21-32) 02/10/23 04:24 Anion Gap 7.0 (6-13) 02/10/23 04:24 BUN 13 mg/dL (6-20) 02/10/23 04:24 Creatinine 0.5 mg/dL (0.6-1.3) L 02/10/23 04:24 Estimated GFR (MDRD) 163 (>89) 02/10/23 04:24 Glucose 114 mg/dL (74-104) H 02/10/23 04:24 Calcium 7.9 mg/dL (8.5-10.3) L 02/10/23 04:24 Phosphorus 2.5 mg/dL (3.7-7.2) L 02/10/23 04:24 Magnesium 2.0 mg/dL (1.7-2.3) 02/10/23 04:24 Total Bilirubin 3.2 mg/dL (0.2-1.0) H 02/10/23 04:24 AST 52 IU/L (10-42) H 02/10/23 04:24 ALT 57 IU/L (10-60) 02/10/23 04:24 Alkaline Phosphatase 290 IU/L (42-121) H 02/10/23 04:24 Troponin I High Sens 13.6 ng/L (2.3-19.7) 02/09/23 20:51 Total Protein 5.5 g/dL (6.4-8.9) L 02/10/23 04:24 Albumin 2.7 g/dL (3.2-5.5) L 02/10/23 04:24 Globulin 2.8 g/dL (2.1-4.2) 02/10/23 04:24 Albumin/Globulin Ratio 1.0 (1.0-2.2) 02/10/23 04:24 Lipase 21 U/L (11-82) 02/08/23 07:12 TSH 13.99 uIU/mL (0.34-5.60) H 02/10/23 04:24 Urine Color ORANGE 02/07/23 15:45 Urine Clarity CLEAR (CLEAR) 02/07/23 15:45 Urine pH 6.5 PH (5.0-7.5) 02/07/23 15:45 Ur Specific [place] <=1.005 (1.002-1.030) 02/07/23 15:45 Urine Protein 30 mg/dL (NEGATIVE) H 02/07/23 15:45 Urine Glucose (UA) NEGATIVE mg/dL (NEGATIVE) 02/07/23 15:45 Urine Ketones mg/dL (NEGATIVE) 02/07/23 15:45 Urine Occult Blood NEGATIVE (NEGATIVE) 02/07/23 15:45 Urine Nitrite NEGATIVE (NEGATIVE) 02/07/23 15:45 Urine Bilirubin COLOR INTERFERENCE (NEGATIVE) 02/07/23 15:45 Urine Urobilinogen 0.2 (NORMAL) E.U./dL (NORMAL) 02/07/23 15:45 Ur Leukocyte Esterase NEGATIVE (NEGATIVE) 02/07/23 15:45 Urine RBC 0-5 /HPF (0-5) 02/07/23 15:45 Urine WBC 0-3 /HPF (0-3) 02/07/23 15:45 Ur Squamous Epith Cells NONE SEEN (<= Few) 02/07/23 15:45 Urine Bacteria Few /HPF (None Seen) 02/07/23 15:45 Urine Mucus Few Strands 02/07/23 15:45 Ur Microscopic Review INDICATED 02/07/23 15:45 Urine Culture Comments NOT INDICATED 02/07/23 15:45
[2023-02-10] MEDS ORDERED: SODIUM CHLORIDE 0.9% 1,000 ML IV SCH (08:25)
[2023-02-10] MEDS ORDERED: POTASSIUM PHOSPHATE 21 MMOL in SODIUM CHLORIDE 0.9% 250 ML IV ONE (13:21)
[2023-02-10] MEDS: BUDESONIDE 0.5 MG/2 ML NEB INH SCH (19:30)
[2023-02-10] MEDS: IPRATROPIUM/ALBUTEROL 3 ML NEB INH PRN (19:30)
[2023-02-10] MEDS: FORMOTEROL FUMARATE NEB 20 MCG/2 ML INH SCH (19:30)
[2023-02-11] MEDS: SODIUM CHLORIDE FLUSH 0.9% 10 ML SYRINGE IVP SCH ×3 (00:13→21:31)
[2023-02-11 05:33] LABS: BASOPHILS % (AUTO) 0.4 %; HCT - HEMATOCRIT 38.2 % (42.0-52.0); HGB - HEMOGLOBIN 12.6 g/dL (14.0-18.0); LYMPHOCYTES % (AUTO) 20.9 %; MEAN CORPUSCULAR HEMOGLOBIN 30.3 pg (27.0-31.0); MEAN CORPUSCULAR VOLUME 91.8 fL (80.0-94.0); MEAN PLATELET VOLUME 10.6 fL (7.4-11.4); MONOCYTES % (AUTO) 6.2 %; NEUTROPHILS % (AUTO) 69.2 %; PLT - PLATELET COUNT 249 10^3/uL (130-450); RED BLOOD COUNT 4.16 10^6/uL (4.70-6.10); WHITE BLOOD COUNT 13.1 x10^3/uL (4.8-10.8)
[2023-02-11 05:49] LABS: ABNORMAL LYMPHS % (MANUAL) 0 %; BAND NEUTROPHILS % (MANUAL) 0 %
[2023-02-11 05:52] LABS: ALBUMIN 2.8 g/dL (3.2-5.5); ALBUMIN/GLOBULIN RATIO 0.9 (1.0-2.2); CALCIUM 8.1 mg/dL (8.5-10.3); CREATININE 0.5 mg/dL (0.6-1.3); MAGNESIUM 1.7 mg/dL (1.7-2.3); PHOSPHORUS 3.3 mg/dL (3.7-7.2); POTASSIUM 3.6 mmol/L (3.5-4.5); TOTAL PROTEIN 5.8 g/dL (6.4-8.9)
[2023-02-11 06:02] LABS: EOSINOPHILS # (MANUAL) 0.1 10^3/uL (0-0.7); LYMPHOCYTES # (MANUAL) 2.9 10^3/uL (1.5-3.5); LYMPHOCYTES % (MANUAL) 22 %; METAMYELOCYTES % (MANUAL) 1 %; MONOCYTES # (MANUAL) 0.9 10^3/uL (0.0-1.0)
[2023-02-11 06:03] LABS: DIFFERENTIAL COMMENT MANUAL DIFFERENTIAL; PLATELET ESTIMATE, MANUAL NORMAL (130-450,000) (NORMAL); PLATELET MORPHOLOGY NORMAL APPEARANCE (NORMAL); RBC MORPHOLOGY (MULTIPLE) NORMAL APPEARANCE (NORMAL); WBC MORPHOLOGY (MULTIPLE) NORMAL APPEARANCE (NORMAL)
[2023-02-11] MEDS: LEVOTHYROXINE 75 MCG TABLET PO SCH (06:25)
[2023-02-11] MEDS: PIPERACILLIN/TAZOBACTAM 3.375 GM in SODIUM CHLORIDE 0.9% MINIBAG 100 ML IV SCH ×3 (06:26→21:31)
[2023-02-11] MEDS: BUDESONIDE 0.5 MG/2 ML NEB INH SCH ×2 (07:31→18:00)
[2023-02-11] MEDS: IPRATROPIUM/ALBUTEROL 3 ML NEB INH PRN ×2 (07:31→17:59)
[2023-02-11] MEDS: FORMOTEROL FUMARATE NEB 20 MCG/2 ML INH SCH ×2 (07:31→17:59)
[2023-02-11] MEDS: TERAZOSIN 2 MG CAPSULE PO SCH (08:35)
[2023-02-11] MEDS: PANTOPRAZOLE 40 MG VIAL IVP SCH (08:35)
[2023-02-11] MEDS: FINASTERIDE 5 MG TABLET PO SCH (08:35)
--- NOTE | 2023-02-11 15:21 | PROVIDER PROGRESS NOTE ---
Assessment/Plan - Problem List (1) Acute cholangitis Assessment/Plan: He presented with elevated white blood count, abdominal pain, very elevated LFTs. Imaging showed that a biliary stent is in place, which he did not know he had (he said it was probably placed when he had his cholecystectomy many years a go). On the day of admission, he was first transferred from our ER and underwent an ERCP at [facility]. Today our EMR record has the scan of the ERCP report which I reviewed. That report was not available until today. The findings at ERCP were sludge, gallstones and pus in the bile duct. His old stent was removed and a new stent was inserted. He then returned to our ER via ambulance and was admitted. The tile layer drainage recommended antibiotics, and no antiplatelet or anticoagu lants for 72 hours. Today he said he had pain yesterday evening in the abdomen diffusely and thought it was from "overeating". Labs were all reviewed. For the last 2 days his white blood count jacobo, from 12.9 at admission>> 11>> 10>> 12.9 yesterday>> 13.1 today. Also today his transaminases AST/ALT jacobo from 52/57 yesterday to 79/74 today. On exam, he has had a distended abdomen since admission, and has been non-tender but hypertympanic, and I thought it was from gas that was insufflated during the ERCP. Today I called [facility] [employer] to try to reach the Bookmaker'S Clerk on- call or the opne that did the ERCP, and wanted to talk about the rising transaminases and WBC. The garbage collection supervisor said she is in the meeting and to call back. I called back again and it went to voicemail. I called back a third time and it went to voicemail Plan: Continue with IV antibiotics Follow CBC and LFTs daily Await any culture results from our ER or from [facility] I will try to reach out to the gastroenterology specialist at [facility], update him and get any recommendations. Continue with as needed meds for pain or nausea (2) Biliary stent obstruction Qualifiers: Qualified Code(s): T85.590A - Other mechanical complication of bile duct prosthesis, initial encounter Assessment/Plan: He is S/P a biliary stent, which the patient did not even remember having. He did remember having his gallbladder removed He presented with obstructive jaundice and hyperbiliribinemia and abnormal LFTs, Leukocytosis, Abdominal pain He had an ERCP done at [facility] then was transferred back to our hospital. ERCP findings are as above in #1. (I had no records myself to review, from [facility] until they were scanned into EMR and are available today). Plan: Continue empiric iv Zosyn I will try to reach out to the gastroenterology specialist to perform this procedure, update him and get any recommendations. Remain off of his home daily aspirin dose, Tomorrow would be the end of 72 hours however in case they need to take him back into a procedure I will not yet restart the morning aspirin dose (3) Non-sustained V. Tach On 02/09, pt had a non-sustained run of monomorphic VT, 12 beats. He was asymptomatic with it We checked his magnesium and 2 troponins and those were unremarkable. But Phos was low. His EKG showed; sinus bradycardia, rate 40 with frequent PACs, rare PVCs, low voltage across the precordium consistent with cor pulmonale, diffuse T wave flattening. A CXR was done and showed COPD, nothing acute. Plan: I ordered an Echo to evaluate his LV. (But we only have an retread technician available Saturday - and the Echo test was ordered when tech not here). (4) Paroxysmal Afib On 02/09 a telemetry strip showed new onset A-fib. The ventr rate was at 90- 100.When it developed, ihe was having urinary retention of greater than 500 cc. Perhaps parasympathetic stimulation from an over-distended bladder has somehow caused this A-fib His magnesium and 2 troponins were OK. I also checked his TSH which came back very elevated at 13, suggesting hypothyroidism, but not hyper Plan: Since he is back in sinus rhythm and is bradycardic at 40-50, he has underlying conduction system disease therefore, he probably has SSS. Patient was already on an aspirin daily before this event, however his dose was 325 2 tablets a day. The aspirin cannot be resumed until 72 hours after the ERCP, per the GI specialist. That 72 hours will be after today. (5) Hypothyroidosm TSH which came back very elevated at 13, suggesting hypothyroidism. I therefore checked his free T4 which is in the low-normal range, at 0.81. All labs were reviewed. Perhaps hypothyroidism is the cause of his marked bradycardia Plan: I will start him on a Synthroid dose of 75 mcg daily before meals. This will need F/U by his PCP after discharge. (6) BPH After admission, he had 600 cc urinary retention after voiding, described to me by his RN yesterday Plan: I ordered as needed straight cath if he has more than 500 cc I restarted his BPH meds Proscar and Hytrin. (7) COPD without exacerbation As per Hx. The chest x-ray that was done today shows that he has changes of emphysema of his lungs. EKG shows low voltage in the precordium also consistent with very significant COPD. At home he is on inhaler meds. Clinically he is not in a COPD exacerbation currently Plan: We will continue his bronchodilators (8) Tobacco use He tells me he is down to 3 cigarettes/day, used to be a heavier smoker. Plan: Smoking cessation was discussed with the patient Cont Nicotine patch (9) Hyperlipidemia Plan: I will order resumption of his statin med when he is on solid food - Current Meds Current Meds: Current Medications Generic Name Dose Route Start Last Admin Trade Name Freq PRN Reason Stop Dose Admin Albuterol/Ipratropium 3 ml 02/09/23 10:08 02/11/23 07:31 Ipratropium/Albuterol 3 Ml Neb INH 3 ml RTQID PRN Administration Shortness of Air/Wheezing Budesonide 0.5 mg 02/10/23 19:00 02/11/23 07:31 Budesonide 0.5 Mg/2 Ml Neb INH 0.5 mg RTBID DRISS Administration Finasteride 5 mg 02/09/23 11:00 02/11/23 08:35 Finasteride 5 Mg Tablet PO 5 mg DAILY DRISS Administration Formoterol Fumarate 20 mcg 02/10/23 19:00 02/11/23 07:31 Formoterol Fumarate Neb 20 Mcg/2 Ml INH 20 mcg RTBID DRISS Administration Piperacillin Sod/Tazobactam 100 mls @ 25 mls/hr 02/09/23 08:50 02/11/23 14:05 Sod 3.375 gm/ Sodium Chloride IV 25 mls/hr Q8H DRISS Administration Levothyroxine Sodium 75 mcg 02/11/23 07:00 02/11/23 06:25 Levothyroxine 75 Mcg Tablet PO 75 mcg QDAC DRISS Administration Pantoprazole Sodium 40 mg 02/09/23 09:00 02/11/23 08:35 Pantoprazole 40 Mg Vial IVP 40 mg DAILY DRISS Administration Sodium Chloride 10 ml 02/09/23 01:00 02/11/23 08:35 Sodium Chloride Flush 0.9% 10 Ml Syringe IVP 10 ml 0100,0900,1700 DRISS Administration Terazosin HCl 10 mg 02/09/23 10:25 02/11/23 08:35 Terazosin 2 Mg Capsule PO 10 mg DAILY DRISS Administration - Lab Result Fish Bone Diagrams: 02/11/23 04:50 02/11/23 04:50 - Additional Planning My Orders: My Active Orders 02/10/23 19:00 Budesonide [Pulmicort] 0.5 mg INH RTBID Formoterol Fumarate [Perforomist] 20 mcg INH RTBID 02/11/23 07:00 Levothyroxine [Synthroid] 75 mcg PO QDAC 02/12/23 05:00 CBC - COMP BLD CT W/AUTO DIFF [HEME] DAILYLAB COMPREHENSIVE METABOLIC PANEL [CHEM] DAILYLAB 02/12/23 07:00 Echo Transthoracic Complete [ECHO] Routine 02/13/23 05:00 CBC - COMP BLD CT W/AUTO DIFF [HEME] DAILYLAB COMPREHENSIVE METABOLIC PANEL [CHEM] DAILYLAB Subjective - Subjective Patient Reports: No Complaints Objective Vital Signs: Vital Signs - 24 hr 02/10/23 02/10/23 02/10/23 15:38 19:30 20:29 Temperature 36.9 C 37.1 C Heart Rate 50 L Heart Rate [ 53 L 60 Brachial] Heart Rate [ Monitoring electrodes] Respiratory 16 20 20 Rate Blood Pressure 148/71 H 130/62 [Right Brachial artery] O2 Saturation 98 95 02/10/23 02/11/23 02/11/23 23:45 04:49 07:36 Temperature 36.9 C 36.9 C Heart Rate 64 Heart Rate [ Brachial] Heart Rate [ 58 L 50 L Monitoring electrodes] Respiratory 20 16 16 Rate Blood Pressure 141/65 H 138/81 H [Right Brachial artery] O2 Saturation 98 96 02/11/23 02/11/23 08:00 13:11 Temperature 37.1 C 36.5 C Heart Rate Heart Rate [ 67 65 Brachial] Heart Rate [ Monitoring electrodes] Respiratory 16 16 Rate Blood Pressure 128/71 135/66 H [Right Brachial artery] O2 Saturation 93 95 Oxygen O2 Source Room air I&O (Last 24 Hrs): Intake and Output Totals x24h 02/09/23 02/10/23 02/11/23 23:59 23:59 23:59 Intake Total 4770 4348 815 Output Total 1775 1174 965 Balance 2995 3174 -150 General: Alert, Oriented x3 HEENT: Mucous membr. moist/pink, Other (Appears shaggy and poorly kempt) Neck: Supple, Other (Cannot evaluate his JVP due to a long son) Neuro: Alert, Non Focal Cardiovascular: No murmurs Respiratory: No respiratory distress Abdomen: Soft, Other (Moderately distended, nontender, hypertympanic) Extremities: No clubbing, No edema, No tenderness/swelling - Results Results: Laboratory Results WBC 13.1 x10^3/uL (4.8-10.8) H 02/11/23 04:50 RBC 4.16 10^6/uL (4.70-6.10) L 02/11/23 04:50 Hgb 12.6 g/dL (14.0-18.0) L 02/11/23 04:50 Hct 38.2 % (42.0-52.0) L 02/11/23 04:50 MCV 91.8 fL (80.0-94.0) 02/11/23 04:50 MCH 30.3 pg (27.0-31.0) 02/11/23 04:50 MCHC 33.0 g/dL (32.0-36.0) 02/11/23 04:50 RDW 15.0 % (12.0-15.0) 02/11/23 04:50 Plt Count 249 10^3/uL (130-450) 02/11/23 04:50 MPV 10.6 fL (7.4-11.4) 02/11/23 04:50 Neut # (Auto) Not Reportable 02/11/23 04:50 Lymph # (Auto) Not Reportable 02/11/23 04:50 Arroyo # (Auto) Not Reportable 02/11/23 04:50 Eos # (Auto) Not Reportable 02/11/23 04:50 Baso # (Auto) Not Reportable 02/11/23 04:50 Absolute Nucleated RBC Not Reportable 02/11/23 04:50 Total Counted 100 02/11/23 04:50 Band Neuts % (Manual) 0 % (0-10) 02/11/23 04:50 Abnorm Lymph % (Manual) 0 % 02/11/23 04:50 Metamyelocytes % 1 % (-0) H 02/11/23 04:50 Nucleated RBC % Not Reportable 02/11/23 04:50 Neutrophils # (Manual) 9.0 10^3/uL (1.5-6.6) H 02/11/23 04:50 Lymphocytes # (Manual) 2.9 10^3/uL (1.5-3.5) 02/11/23 04:50 Monocytes # (Manual) 0.9 10^3/uL (0.0-1.0) 02/11/23 04:50 Eosinophils # (Manual) 0.1 10^3/uL (0-0.7) 02/11/23 04:50 Basophils # (Manual) 0.0 10^3/uL (0-0.1) 02/11/23 04:50 Differential Comment MANUAL DIFFERENTIAL 02/11/23 04:50 WBC Morphology NORMAL APPEARANCE (NORMAL) 02/11/23 04:50 Platelet Estimate NORMAL (130-450,000) (NORMAL) 02/11/23 04:50 Platelet Morphology NORMAL APPEARANCE (NORMAL) 02/11/23 04:50 RBC Morph Micro Appear NORMAL APPEARANCE (NORMAL) 02/11/23 04:50 PT 15.7 secs (9.9-12.6) H 02/07/23 11:57 INR 1.4 (0.8-1.2) H 02/07/23 11:57 APTT 25.6 secs (24.9-33.3) 02/07/23 11:57 Sodium 136 mmol/L (135-145) 02/11/23 04:50 Potassium 3.6 mmol/L (3.5-4.5) 02/11/23 04:50 Chloride 107 mmol/L (101-111) 02/11/23 04:50 Carbon Dioxide 23 mmol/L (21-32) 02/11/23 04:50 Anion Gap 6.0 (6-13) 02/11/23 04:50 BUN 13 mg/dL (6-20) 02/11/23 04:50 Creatinine 0.5 mg/dL (0.6-1.3) L 02/11/23 04:50 Estimated GFR (MDRD) 163 (>89) 02/11/23 04:50 Glucose 92 mg/dL (74-104) 02/11/23 04:50 Calcium 8.1 mg/dL (8.5-10.3) L 02/11/23 04:50 Phosphorus 3.3 mg/dL (3.7-7.2) L 02/11/23 04:50 Magnesium 1.7 mg/dL (1.7-2.3) 02/11/23 04:50 Total Bilirubin 3.0 mg/dL (0.2-1.0) H 02/11/23 04:50 AST 79 IU/L (10-42) H 02/11/23 04:50 ALT 74 IU/L (10-60) H 02/11/23 04:50 Alkaline Phosphatase 278 IU/L (42-121) H 02/11/23 04:50 Troponin I High Sens 13.6 ng/L (2.3-19.7) 02/09/23 20:51 Total Protein 5.8 g/dL (6.4-8.9) L 02/11/23 04:50 Albumin 2.8 g/dL (3.2-5.5) L 02/11/23 04:50 Globulin 3.0 g/dL (2.1-4.2) 02/11/23 04:50 Albumin/Globulin Ratio 0.9 (1.0-2.2) L 02/11/23 04:50 Lipase 21 U/L (11-82) 02/08/23 07:12 TSH 13.99 uIU/mL (0.34-5.60) H 02/10/23 04:24 Free T4 Direct 0.81 ng/dL (0.58-1.64) 02/10/23 04:24 Urine Color ORANGE 02/07/23 15:45 Urine Clarity CLEAR (CLEAR) 02/07/23 15:45 Urine pH 6.5 PH (5.0-7.5) 02/07/23 15:45 Ur Specific [place] <=1.005 (1.002-1.030) 02/07/23 15:45 Urine Protein 30 mg/dL (NEGATIVE) H 02/07/23 15:45 Urine Glucose (UA) NEGATIVE mg/dL (NEGATIVE) 02/07/23 15:45 Urine Ketones mg/dL (NEGATIVE) 02/07/23 15:45 Urine Occult Blood NEGATIVE (NEGATIVE) 02/07/23 15:45 Urine Nitrite NEGATIVE (NEGATIVE) 02/07/23 15:45 Urine Bilirubin COLOR INTERFERENCE (NEGATIVE) 02/07/23 15:45 Urine Urobilinogen 0.2 (NORMAL) E.U./dL (NORMAL) 02/07/23 15:45 Ur Leukocyte Esterase NEGATIVE (NEGATIVE) 02/07/23 15:45 Urine RBC 0-5 /HPF (0-5) 02/07/23 15:45 Urine WBC 0-3 /HPF (0-3) 02/07/23 15:45 Ur Squamous Epith Cells NONE SEEN (<= Few) 02/07/23 15:45 Urine Bacteria Few /HPF (None Seen) 02/07/23 15:45 Urine Mucus Few Strands 02/07/23 15:45 Ur Microscopic Review INDICATED 02/07/23 15:45 Urine Culture Comments NOT INDICATED 02/07/23 15:45
[2023-02-12] MEDS: SODIUM CHLORIDE FLUSH 0.9% 10 ML SYRINGE IVP SCH ×3 (00:20→18:57)
[2023-02-12 05:17] LABS: BASOPHILS # (AUTO) 0.1 10^3/uL (0.0-0.1); BASOPHILS % (AUTO) 0.5 %; EOSINOPHILS # (AUTO) 0.2 10^3/uL (0.0-0.7); EOSINOPHILS % (AUTO) 1.7 %; HCT - HEMATOCRIT 36.3 % (42.0-52.0); HGB - HEMOGLOBIN 12.4 g/dL (14.0-18.0); LYMPHOCYTES # (AUTO) 2.6 10^3/uL (1.5-3.5); LYMPHOCYTES % (AUTO) 21.3 %; MEAN CORPUSCULAR HEMOGLOBIN 30.6 pg (27.0-31.0); MEAN CORPUSCULAR HGB CONC 34.2 g/dL (32.0-36.0); MEAN CORPUSCULAR VOLUME 89.6 fL (80.0-94.0); MONOCYTES # (AUTO) 0.7 10^3/uL (0.0-1.0); MONOCYTES % (AUTO) 6.2 %; NEUTROPHILS % (AUTO) 66.6 %; PLT - PLATELET COUNT 251 10^3/uL (130-450); RED BLOOD COUNT 4.05 10^6/uL (4.70-6.10); RED CELL DISTRIBUTION WIDTH 14.8 % (12.0-15.0)
[2023-02-12 05:32] LABS: ALBUMIN 2.9 g/dL (3.2-5.5); ALBUMIN/GLOBULIN RATIO 0.9 (1.0-2.2); BILIRUBIN,TOTAL 2.8 mg/dL (0.2-1.0); CALCIUM 8.4 mg/dL (8.5-10.3); CREATININE 0.4 mg/dL (0.6-1.3); POTASSIUM 3.4 mmol/L (3.5-4.5)
[2023-02-12] MEDS: LEVOTHYROXINE 75 MCG TABLET PO SCH (06:14)
[2023-02-12] MEDS: PIPERACILLIN/TAZOBACTAM 3.375 GM in SODIUM CHLORIDE 0.9% MINIBAG 100 ML IV SCH ×3 (06:14→21:33)
[2023-02-12] MEDS: FORMOTEROL FUMARATE NEB 20 MCG/2 ML INH SCH ×2 (06:57→18:53)
[2023-02-12] MEDS: IPRATROPIUM/ALBUTEROL 3 ML NEB INH PRN (06:57)
[2023-02-12] MEDS: BUDESONIDE 0.5 MG/2 ML NEB INH SCH ×2 (06:58→18:53)
[2023-02-12] MEDS: PANTOPRAZOLE 40 MG VIAL IVP SCH (08:20)
[2023-02-12] MEDS: TERAZOSIN 2 MG CAPSULE PO SCH (08:20)
[2023-02-12] MEDS: FINASTERIDE 5 MG TABLET PO SCH (08:20)
--- NOTE | 2023-02-12 09:07 | PROVIDER PROGRESS NOTE ---
Assessment/Plan - Problem List (1) Acute cholangitis Assessment/Plan: He presented with elevated WBC of 12.9, abdominal pain, very elevated LFTs, including bili. Imaging showed that a biliary stent, which he did not know he had, was causing obstruction. He was first transferred from our ER to [facility] and underwent an ERCP and he then returned to our ER via ambulance and was admitted. A verbal report was passed on from our ER provider to the admitting [facility] doctor. But the [facility] GI doctor's report was not available to me until yesterday, 02/11 in our EMR. The findings at ERCP were sludge, gallstones and pus in the bile duct. His old stent was removed and a new stent was inserted. The airline transport pilot recommended iv antibiotics (but does not say for how long), and no antiplatelet or anticoagulants for 72 hours. And recommendation was to undergo ERCP at 4 to 6 weeks to remove that new stent. Labs were all reviewed. For the last 2 days his white blood count jacobo, from 1 2.9 at admission>> 11>> 10>> 12.9 >> 13.1 yesterday. Also today his transaminases AST/ALT jacobo from 52/57>> 79/74 yesterday>> 102/96 today. On exam, he still has the same distended abdomen since admission, it has been non-tender but hypertympanic, and I thought it was from gas that was insufflated during the ERCP. Today he reports he is finally starting to pass flatus. He denies abd pain, nausea or vomiting, and has had a formed stool. Yesterday 02/11, I called [facility] 3 times to try to reach that Blanket Weaver or the on-call GI, and got no call back. This morning 02/12, I reached the [facility], and then called the GI who did the ERCP and spoke to Dr Perez today. I updated Dr. Quiroz about the rising WBC and rising LFTs. Dr. Quiroz felt that the Zosyn could be the cause of the rising LFTs since the bilirubin is going down since admission. He was also concerned about the elevated white blood count. Dr. Quiroz recommended the patient have a CT abdomen/pelvis and a chest x-ray, and recommended that the pt get 5 days of IV Zosyn, then monitor him for a day off antibx, before he is discharged, to assess that all labs continue to improve. Plan: Continue with IV antibiotic Zosyn, and today is Day #4 of 5 planned days. Follow CBC and LFTs daily Obtain CT with contrast of abdomen pelvis, and chest x-ray>> these showed ... I updated the patient about the GI doctor's recommendations and that he is not being discharged today, will be here at least 2 more days after today. (2) Biliary stent obstruction Qualifiers: Qualified Code(s): T85.590A - Other mechanical complication of bile duct prosthesis, initial encounter Assessment/Plan: He is S/P a biliary stent, which the patient did not even remember having. He did remember having his gallbladder removed He presented with obstructive jaundice and hyperbiliribinemia and abnormal LFTs, Leukocytosis, Abdominal pain He had an ERCP done at [facility] then was transferred back to our hospital. ERCP findings are as above in #1. (I had no records myself to review, from [facility] until they were scanned into EMR 02/11). Plan: Continue empiric iv Zosyn for 5 days Remain off of his home daily aspirin dose until imaging done and we are sure he does not need another invasive procedure, today would be the end of 72 hours (3) Acute urinary retention Last night he had urinary retention after only dribbling with voiding, he needed straight cath x2. He said this is happened to him recurrently and he requested a De León. A De León was placed at 0200. Today he gave me details that this has happened to him 7 times before, he gets a De León placed for about a week, sees urologist who does remove it and checks if he can void a full bladder which he usually can Plan: Continue with the new De León. He will be discharged with it. He will need a new urologist to further manage him as an outpatient. I told the patient we have a new Urologist now, here on [facility], Dr. Castorena (4) BPH I restarted his BPH meds Proscar and Hytrin. (5) Non-sustained V. Tach On 02/09, pt had a non-sustained run of monomorphic VT, 12 beats. He was asymptomatic with it We checked his magnesium and 2 troponins and those were unremarkable. But Phos was low. His EKG showed; sinus bradycardia, rate 40 with frequent PACs, rare PVCs, low voltage across the precordium consistent with cor pulmonale, diffuse T wave flattening. A CXR was done and showed COPD, nothing acute. Plan: I ordered an Echo to evaluate his LV, and have been waiting since we only have an solar installer technician available Saturday - (6) Paroxysmal Afib On 02/09 a telemetry strip showed new onset A-fib. The ventr rate was at 90- 100.When it developed, ihe was having urinary retention of greater than 500 cc. Perhaps parasympathetic stimulation from an over-distended bladder has somehow caused this A-fib His magnesium and 2 troponins were OK. I also checked his TSH which came back very elevated at 13, suggesting hypothyroidism, but not hyper Plan: Since he is back in sinus rhythm and is bradycardic at 40-50, he has underlying conduction system disease therefore, he probably has SSS. Patient was already on an aspirin daily before this event, however his dose was 325mg, two tablets a day. The aspirin cannot be resumed until 72 hours after the ERCP, per the GI specialist. That 72 hours would be today. (7) Hypothyroidosm This is a new diagnosis for him. TSH was checked when he had new Afib and TSH came back very elevated at 13, suggesting hypothyroidism. I therefore checked his free T4 which is in the very low-normal range, at 0.81. All labs were reviewed. Perhaps hypothyroidism is the cause of his marked bradycardia Plan: I started him on a Synthroid dose of 75 mcg daily before meals. This will need F/U by his PCP after discharge. (8) COPD without exacerbation As per Hx. The chest x-ray that was done today shows that he has changes of emphysema of his lungs. EKG shows low voltage in the precordium also consistent with very significant COPD. At home he is on inhaler meds. Clinically he is not in a COPD exacerbation currently Plan: We will continue his bronchodilators (9) Tobacco use He tells me he is down to 3 cigarettes/day, used to be a heavier smoker. Plan: Smoking cessation was discussed with the patient Cont Nicotine patch (10) Hyperlipidemia Plan: I will order resumption of his statin med when he is stable on solid food - Current Meds Current Meds: Current Medications Generic Name Dose Route Start Last Admin Trade Name Freq PRN Reason Stop Dose Admin Albuterol/Ipratropium 3 ml 02/09/23 10:08 02/12/23 06:57 Ipratropium/Albuterol 3 Ml Neb INH 3 ml RTQID PRN Administration Shortness of Air/Wheezing Budesonide 0.5 mg 02/10/23 19:00 02/12/23 06:58 Budesonide 0.5 Mg/2 Ml Neb INH 0.5 mg RTBID DRISS Administration Finasteride 5 mg 02/09/23 11:00 02/12/23 08:20 Finasteride 5 Mg Tablet PO 5 mg DAILY DRISS Administration Formoterol Fumarate 20 mcg 02/10/23 19:00 02/12/23 06:57 Formoterol Fumarate Neb 20 Mcg/2 Ml INH 20 mcg RTBID DRISS Administration Piperacillin Sod/Tazobactam 100 mls @ 25 mls/hr 02/09/23 08:50 02/12/23 06:14 Sod 3.375 gm/ Sodium Chloride IV 25 mls/hr Q8H DRISS Administration Levothyroxine Sodium 75 mcg 02/11/23 07:00 02/12/23 06:14 Levothyroxine 75 Mcg Tablet PO 75 mcg QDAC DRISS Administration Pantoprazole Sodium 40 mg 02/09/23 09:00 02/12/23 08:20 Pantoprazole 40 Mg Vial IVP 40 mg DAILY DRISS Administration Sodium Chloride 10 ml 02/09/23 01:00 02/12/23 08:20 Sodium Chloride Flush 0.9% 10 Ml Syringe IVP 10 ml 0100,0900,1700 DRISS Administration Terazosin HCl 10 mg 02/09/23 10:25 02/12/23 08:20 Terazosin 2 Mg Capsule PO 10 mg DAILY DRISS Administration - Lab Result Fish Bone Diagrams: 02/12/23 05:11 02/12/23 05:11 - Diagnostic Imaging Results Diagnostic Imaging Results: Final report reviewed - Additional Planning My Orders: My Active Orders 02/12/23 07:00 Echo Transthoracic Complete [ECHO] Routine 02/13/23 05:00 CBC - COMP BLD CT W/AUTO DIFF [HEME] DAILYLAB COMPREHENSIVE METABOLIC PANEL [CHEM] DAILYLAB Subjective - Subjective Patient Reports: Feeling Better (No nausea vomiting or abdominal pain. He is finally passing flatus. Abdomen is still moderately distended), Other (Overnight he had lower abdominal pelvic pain when he had urinary bladder distention, which improved only after a De León was inserted overnight.) Objective Vital Signs: Vital Signs - 24 hr 02/11/23 02/11/23 02/11/23 13:11 16:00 18:04 Temperature 36.5 C 36.9 C Heart Rate 64 Heart Rate [ 65 58 L Brachial] Heart Rate [ Monitoring electrodes] Respiratory 16 16 20 Rate Blood Pressure 135/66 H 134/67 H [Right Brachial artery] O2 Saturation 95 94 02/11/23 02/11/23 02/12/23 20:00 23:59 04:39 Temperature 36.6 C 36.7 C 37.0 C Heart Rate Heart Rate [ 57 L 50 L Brachial] Heart Rate [ 75 Monitoring electrodes] Respiratory 24 18 16 Rate Blood Pressure 155/71 H 144/68 H 151/68 H [Right Brachial artery] O2 Saturation 98 97 97 02/12/23 02/12/23 07:01 08:07 Temperature 36.9 C Heart Rate 65 Heart Rate [ 67 Brachial] Heart Rate [ Monitoring electrodes] Respiratory 16 18 Rate Blood Pressure 129/62 [Right Brachial artery] O2 Saturation 95 Oxygen O2 Source Room air I&O (Last 24 Hrs): Intake and Output Totals x24h 02/10/23 02/11/23 02/12/23 23:59 23:59 23:59 Intake Total 4348 2551 1300 Output Total 1174 2115 1650 Balance 3174 436 -350 General: Alert, Oriented x3 HEENT: Other (Icteric, disheveled hair and long son) Neuro: Alert, Non Focal Cardiovascular: Regular rate, No murmurs Respiratory: No respiratory distress Abdomen: Soft, Other (Moderately distended, hypertympanic, non-tender) Genitourinary: Other (Has a De León in place) Extremities: No clubbing, No edema, No tenderness/swelling - Results Results: Laboratory Results WBC 12.0 x10^3/uL (4.8-10.8) H 02/12/23 05:11 RBC 4.05 10^6/uL (4.70-6.10) L 02/12/23 05:11 Hgb 12.4 g/dL (14.0-18.0) L 02/12/23 05:11 Hct 36.3 % (42.0-52.0) L 02/12/23 05:11 MCV 89.6 fL (80.0-94.0) 02/12/23 05:11 MCH 30.6 pg (27.0-31.0) 02/12/23 05:11 MCHC 34.2 g/dL (32.0-36.0) 02/12/23 05:11 RDW 14.8 % (12.0-15.0) 02/12/23 05:11 Plt Count 251 10^3/uL (130-450) 02/12/23 05:11 MPV 10.0 fL (7.4-11.4) 02/12/23 05:11 Neut # (Auto) 8.0 10^3/uL (1.5-6.6) H 02/12/23 05:11 Lymph # (Auto) 2.6 10^3/uL (1.5-3.5) 02/12/23 05:11 [place] # (Auto) 0.7 10^3/uL (0.0-1.0) 02/12/23 05:11 Eos # (Auto) 0.2 10^3/uL (0.0-0.7) 02/12/23 05:11 Baso # (Auto) 0.1 10^3/uL (0.0-0.1) 02/12/23 05:11 Absolute Nucleated RBC 0.00 x10^3/uL 02/12/23 05:11 Total Counted 100 02/11/23 04:50 Band Neuts % (Manual) 0 % (0-10) 02/11/23 04:50 Abnorm Lymph % (Manual) 0 % 02/11/23 04:50 Metamyelocytes % 1 % (-0) H 02/11/23 04:50 Nucleated RBC % 0.0 /100WBC 02/12/23 05:11 Neutrophils # (Manual) 9.0 10^3/uL (1.5-6.6) H 02/11/23 04:50 Lymphocytes # (Manual) 2.9 10^3/uL (1.5-3.5) 02/11/23 04:50 Monocytes # (Manual) 0.9 10^3/uL (0.0-1.0) 02/11/23 04:50 Eosinophils # (Manual) 0.1 10^3/uL (0-0.7) 02/11/23 04:50 Basophils # (Manual) 0.0 10^3/uL (0-0.1) 02/11/23 04:50 Differential Comment MANUAL DIFFERENTIAL 02/11/23 04:50 WBC Morphology NORMAL APPEARANCE (NORMAL) 02/11/23 04:50 Platelet Estimate NORMAL (130-450,000) (NORMAL) 02/11/23 04:50 Platelet Morphology NORMAL APPEARANCE (NORMAL) 02/11/23 04:50 RBC Morph Micro Appear NORMAL APPEARANCE (NORMAL) 02/11/23 04:50 PT 15.7 secs (9.9-12.6) H 02/07/23 11:57 INR 1.4 (0.8-1.2) H 02/07/23 11:57 APTT 25.6 secs (24.9-33.3) 02/07/23 11:57 Sodium 140 mmol/L (135-145) 02/12/23 05:11 Potassium 3.4 mmol/L (3.5-4.5) L 02/12/23 05:11 Chloride 106 mmol/L (101-111) 02/12/23 05:11 Carbon Dioxide 27 mmol/L (21-32) 02/12/23 05:11 Anion Gap 7.0 (6-13) 02/12/23 05:11 BUN 7 mg/dL (6-20) 02/12/23 05:11 Creatinine 0.4 mg/dL (0.6-1.3) L 02/12/23 05:11 Estimated GFR (MDRD) 211 (>89) 02/12/23 05:11 Glucose 98 mg/dL (74-104) 02/12/23 05:11 Calcium 8.4 mg/dL (8.5-10.3) L 02/12/23 05:11 Phosphorus 3.3 mg/dL (3.7-7.2) L 02/11/23 04:50 Magnesium 1.7 mg/dL (1.7-2.3) 02/11/23 04:50 Total Bilirubin 2.8 mg/dL (0.2-1.0) H 02/12/23 05:11 AST 102 IU/L (10-42) H 02/12/23 05:11 ALT 96 IU/L (10-60) H 02/12/23 05:11 Alkaline Phosphatase 294 IU/L (42-121) H 02/12/23 05:11 Troponin I High Sens 13.6 ng/L (2.3-19.7) 02/09/23 20:51 Total Protein 6.0 g/dL (6.4-8.9) L 02/12/23 05:11 Albumin 2.9 g/dL (3.2-5.5) L 02/12/23 05:11 Globulin 3.1 g/dL (2.1-4.2) 02/12/23 05:11 Albumin/Globulin Ratio 0.9 (1.0-2.2) L 02/12/23 05:11 Lipase 21 U/L (11-82) 02/08/23 07:12 TSH 13.99 uIU/mL (0.34-5.60) H 02/10/23 04:24 Free T4 Direct 0.81 ng/dL (0.58-1.64) 02/10/23 04:24 Urine Color ORANGE 02/07/23 15:45 Urine Clarity CLEAR (CLEAR) 02/07/23 15:45 Urine pH 6.5 PH (5.0-7.5) 02/07/23 15:45 Ur Specific [place] <=1.005 (1.002-1.030) 02/07/23 15:45 Urine Protein 30 mg/dL (NEGATIVE) H 02/07/23 15:45 Urine Glucose (UA) NEGATIVE mg/dL (NEGATIVE) 02/07/23 15:45 Urine Ketones mg/dL (NEGATIVE) 02/07/23 15:45 Urine Occult Blood NEGATIVE (NEGATIVE) 02/07/23 15:45 Urine Nitrite NEGATIVE (NEGATIVE) 02/07/23 15:45 Urine Bilirubin COLOR INTERFERENCE (NEGATIVE) 02/07/23 15:45 Urine Urobilinogen 0.2 (NORMAL) E.U./dL (NORMAL) 02/07/23 15:45 Ur Leukocyte Esterase NEGATIVE (NEGATIVE) 02/07/23 15:45 Urine RBC 0-5 /HPF (0-5) 02/07/23 15:45 Urine WBC 0-3 /HPF (0-3) 02/07/23 15:45 Ur Squamous Epith Cells NONE SEEN (<= Few) 02/07/23 15:45 Urine Bacteria Few /HPF (None Seen) 02/07/23 15:45 Urine Mucus Few Strands 02/07/23 15:45 Ur Microscopic Review INDICATED 02/07/23 15:45 Urine Culture Comments NOT INDICATED 02/07/23 15:45
[2023-02-12] MEDS ORDERED: iohexoL-300 100 ML VIAL ONE (12:04)
--- NOTE | 2023-02-12 12:21 | XRAY Report ---
PROCEDURE: Chest 1 View X-Ray INDICATIONS: Worsening WBC elevation, recent GBladder procedure TECHNIQUE: One view of the chest was acquired. COMPARISON: 02/09/2023 FINDINGS: Surgical changes and devices: None. Lungs and pleura: No dense consolidation or pleural effusion. Mild basal lung opacities are present. Mediastinum: Heart size within normal limits. Bones and chest wall: No suspicious bony lesions. Overlying soft tissues appear unremarkable. IMPRESSION: Mild basal lung opacities could represent atelectasis or early airspace disease. No dense airspace co nsolidation. Consider future imaging surveillance to assess for resolution. Reviewed by: Jadon Seay MD on 02/12/2023 12:20 PM PDT Approved by: Jadon Seay MD on 02/12/2023 12:20 PM PDT Station ID: [id number]
--- NOTE | 2023-02-12 14:14 | CT Report ---
PROCEDURE: ABDOMEN/PELVIS W INDICATIONS: Worsening WBC LFTs, also new urinary retention CONTRAST: Omni 300 100ml TECHNIQUE: After the administration of IV contrast, 5 mm thick sections acquired from the diaphragms to the symp hysis. 5 mm thick coronal and sagittal reformats were acquired. For radiation dose reduction, the f ollowing was used: automated exposure control, adjustment of mA and/or kV according to patient size. COMPARISON: CT abdomen pelvis 02/07/2023 FINDINGS: Image quality: Excellent. Lung bases and heart: Minimal effusions, right greater than left with superimposed dependent changes. Liver: Hepatic steatosis is present. Gallbladder and biliary tree: The gallbladder is not visualized. Biliary drain is unchanged. Previous intrahepatic biliary prominence has decreased. Spleen: No splenomegaly. Pancreas: No pancreatic ductal dilation. Adrenals: No adrenal nodule. Kidneys and ureters: No hydronephrosis. No renal cystic lesion which requires follow up. No solid mas s. Bowel and peritoneum: No bowel distension. No pathologic free fluid. Colonic diverticula are present without associated inflammatory change. Moderate colonic stool. Appendix is normal. Lymph nodes: No central or retroperitoneal adenopathy. Vessels: No infrarenal aortic aneurysm. PELVIS Reproductive organs: Unremarkable. Bladder: Bladder is incompletely distended with a De León catheter, limiting evaluation. There is prese nt in the nondependent portion. Pelvic lymph nodes: No pelvic adenopathy by size criteria. Bones: No aggressive osseous abnormality. Other: Fat-containing left inguinal hernia is present. Portion of the superior bladder is present in the right inguinal canal. Fat-containing ventral hernia. IMPRESSION: Biliary stent with decreased appearance of ductal dilation compared to prior exam. Bladder is collapsed limiting evaluation with a De León catheter. Air is present in the nondependent po rtion which could be secondary to catheter insertion. Diverticulosis. Moderate colonic stool. Reviewed by: Edelmira Shaikh MD on 02/12/2023 2:12 PM PDT Approved by: Edelmira Shaikh MD on 02/12/2023 2:12 PM PDT Station ID: [id number]
[2023-02-12] MEDS ORDERED: iohexoL-300 100 ML VIAL IVP ONE (14:22)
[2023-02-13] MEDS: SODIUM CHLORIDE FLUSH 0.9% 10 ML SYRINGE IVP SCH ×3 (01:48→18:19)
[2023-02-13 05:32] LABS: BASOPHILS # (AUTO) 0.1 10^3/uL (0.0-0.1); BASOPHILS % (AUTO) 0.7 %; EOSINOPHILS # (AUTO) 0.4 10^3/uL (0.0-0.7); HCT - HEMATOCRIT 37.4 % (42.0-52.0); HGB - HEMOGLOBIN 12.4 g/dL (14.0-18.0); LYMPHOCYTES # (AUTO) 2.8 10^3/uL (1.5-3.5); LYMPHOCYTES % (AUTO) 23.4 %; MEAN CORPUSCULAR HEMOGLOBIN 30.1 pg (27.0-31.0); MEAN CORPUSCULAR HGB CONC 33.2 g/dL (32.0-36.0); MEAN CORPUSCULAR VOLUME 90.8 fL (80.0-94.0); MEAN PLATELET VOLUME 10.4 fL (7.4-11.4); MONOCYTES # (AUTO) 0.8 10^3/uL (0.0-1.0); MONOCYTES % (AUTO) 6.5 %; NEUTROPHILS # (AUTO) 7.4 10^3/uL (1.5-6.6); NEUTROPHILS % (AUTO) 62.4 %; PLT - PLATELET COUNT 280 10^3/uL (130-450); RED BLOOD COUNT 4.12 10^6/uL (4.70-6.10); RED CELL DISTRIBUTION WIDTH 14.6 % (12.0-15.0); WHITE BLOOD COUNT 11.9 x10^3/uL (4.8-10.8)
[2023-02-13 06:00] LABS: ALBUMIN 2.8 g/dL (3.2-5.5); ALBUMIN/GLOBULIN RATIO 0.9 (1.0-2.2); BILIRUBIN,TOTAL 2.2 mg/dL (0.2-1.0); CALCIUM 8.5 mg/dL (8.5-10.3); CREATININE 0.5 mg/dL (0.6-1.3); POTASSIUM 3.8 mmol/L (3.5-4.5)
[2023-02-13] MEDS: PIPERACILLIN/TAZOBACTAM 3.375 GM in SODIUM CHLORIDE 0.9% MINIBAG 100 ML IV SCH ×3 (06:02→21:11)
[2023-02-13] MEDS: LEVOTHYROXINE 75 MCG TABLET PO SCH (06:02)
[2023-02-13] MEDS: BUDESONIDE 0.5 MG/2 ML NEB INH SCH ×2 (07:44→20:30)
[2023-02-13] MEDS: FORMOTEROL FUMARATE NEB 20 MCG/2 ML INH SCH ×2 (07:45→20:30)
[2023-02-13] MEDS: FINASTERIDE 5 MG TABLET PO SCH (08:31)
[2023-02-13] MEDS: PANTOPRAZOLE 40 MG VIAL IVP SCH (08:31)
[2023-02-13] MEDS: TERAZOSIN 2 MG CAPSULE PO SCH (08:31)
--- NOTE | 2023-02-13 13:55 | PROVIDER PROGRESS NOTE ---
Assessment/Plan - Problem List (1) Acute cholangitis Assessment/Plan: He presented with elevated WBC of 12.9, abdominal pain, very elevated LFTs, including bili. Imaging showed that a biliary stent, which he did not know he had, was causing obstruction. He was first transferred from our ER to [facility] and underwent an ERCP and he then returned to our ER via ambulance and was admitted. A verbal report was passed on from our ER provider to the admitting [facility] doctor. But the [facility] GI doctor's report was not available to me until yesterday, 02/11 in our EMR. The findings at ERCP were sludge, gallstones and pus in the bile duct. His old stent was removed and a new stent was inserted. The coke worker recommended iv antibiotics (but does not say for how long), and no antiplatelet or anticoagulants for 72 hours. And recommendation was to undergo ERCP at 4 to 6 weeks to remove that new stent. WBC trending down, w/ breif uptrend from 02/11-02/12. Bilirubin down trending LFT's stable PLAN: Per Dr Perez today recommended the patient have a CT abdomen/pelvis and a chest x-ray, and recommended that the pt get 5 days of IV Zosyn, then monitor him for a day off antibx, before he is discharged, to assess that all labs continue to improve. Plan: Continue with IV antibiotic Zosyn, and today is Day #[address] reassuring CBC and LFTs daily Possible D/C 02/13 (2) BPH w urinary obs/LUTS Assessment/Plan: Patient developed urinary obstruction during this admission. Patient reports history of recurrence of outlet obstruction and after straight cath x2 requested to De León catheter. Continue De León, will be discharged with De León in place to follow-up with urologist for voiding trial. (3) Paroxysmal atrial fibrillation Assessment/Plan: Patient suspicious for sick sinus syndrome Patient is now back in sinus rhythm with bradycardia heart rates in the 40s to 50s. Continue aspirin (4) Hypothyroidism Qualifiers: Hypothyroidism type: acquired Qualified Code(s): E03.9 - Hypothyroidism, unspecified Assessment/Plan: New diagnosis during this admission Continue Synthroid 75 mcg daily Will need repeat TSH in 6 weeks post discharge (5) COPD (chronic obstructive pulmonary disease) Qualifiers: COPD type: emphysema Qualified Code(s): J43.1 - Panlobular emphysema Assessment/Plan: Stable without exacerbation. Continue bronchodilators - Current Meds Current Meds: Current Medications Generic Name Dose Route Start Last Admin Trade Name Freq PRN Reason Stop Dose Admin Albuterol/Ipratropium 3 ml 02/09/23 10:08 02/12/23 06:57 Ipratropium/Albuterol 3 Ml Neb INH 3 ml RTQID PRN Administration Shortness of Air/Wheezing Budesonide 0.5 mg 02/10/23 19:00 02/13/23 07:44 Budesonide 0.5 Mg/2 Ml Neb INH 0.5 mg RTBID DRISS Administration Finasteride 5 mg 02/09/23 11:00 02/13/23 08:31 Finasteride 5 Mg Tablet PO 5 mg DAILY DRISS Administration Formoterol Fumarate 20 mcg 02/10/23 19:00 02/13/23 07:45 Formoterol Fumarate Neb 20 Mcg/2 Ml INH 20 mcg RTBID DRISS Administration Piperacillin Sod/Tazobactam 100 mls @ 25 mls/hr 02/09/23 08:50 02/13/23 10:58 Sod 3.375 gm/ Sodium Chloride IV Infused Q8H DRISS Infusion Levothyroxine Sodium 75 mcg 02/11/23 07:00 02/13/23 06:02 Levothyroxine 75 Mcg Tablet PO 75 mcg QDAC DRISS Administration Pantoprazole Sodium 40 mg 02/09/23 09:00 02/13/23 08:31 Pantoprazole 40 Mg Vial IVP 40 mg DAILY DRISS Administration Sodium Chloride 10 ml 02/09/23 01:00 02/13/23 08:31 Sodium Chloride Flush 0.9% 10 Ml Syringe IVP 10 ml 0100,0900,1700 DRISS Administration Terazosin HCl 10 mg 02/09/23 10:25 02/13/23 08:31 Terazosin 2 Mg Capsule PO 10 mg DAILY DRISS Administration - Lab Result Lab results reviewed: Yes Fish Bone Diagrams: 02/13/23 05:04 02/13/23 05:04 - Additional Planning Condition/Complexity: Improved Subjective - Subjective Patient Reports: Feeling Better Objective Vital Signs: Vital Signs - 24 hr 02/12/23 02/12/23 02/12/23 15:56 18:56 20:19 Temperature 36.9 C 36.7 C Heart Rate 48 L Heart Rate [ 50 L 54 L Brachial] Heart Rate [ Monitoring electrodes] Respiratory 16 16 18 Rate Blood Pressure 148/67 H 135/75 H [Right Brachial artery] O2 Saturation 98 96 02/12/23 02/13/23 02/13/23 23:55 05:00 07:36 Temperature 36.9 C 37.3 C 36.6 C Heart Rate Heart Rate [ 60 Brachial] Heart Rate [ 69 98 Monitoring electrodes] Respiratory 18 16 16 Rate Blood Pressure 136/58 H 135/71 H 143/72 H [Right Brachial artery] O2 Saturation 96 95 96 02/13/23 02/13/23 07:47 11:22 Temperature 36.6 C Heart Rate 60 Heart Rate [ 74 Brachial] Heart Rate [ Monitoring electrodes] Respiratory 16 18 Rate Blood Pressure 121/69 [Right Brachial artery] O2 Saturation 97 Oxygen O2 Source Room air I&O (Last 24 Hrs): Intake and Output Totals x24h 02/11/23 02/12/23 02/13/23 23:59 23:59 23:59 Intake Total 2551 2682 1640 Output Total 2119 5650 2050 Balance 436 -2238 -410 General: Alert, Oriented x3 HEENT: Atraumatic, EOMI Cardiovascular: Regular rate, Normal S1, Normal S2 Respiratory: No respiratory distress Abdomen: Normal bowel sounds - Results Results: Laboratory Results WBC 11.9 x10^3/uL (4.8-10.8) H 02/13/23 05:04 RBC 4.12 10^6/uL (4.70-6.10) L 02/13/23 05:04 Hgb 12.4 g/dL (14.0-18.0) L 02/13/23 05:04 Hct 37.4 % (42.0-52.0) L 02/13/23 05:04 MCV 90.8 fL (80.0-94.0) 02/13/23 05:04 MCH 30.1 pg (27.0-31.0) 02/13/23 05:04 MCHC 33.2 g/dL (32.0-36.0) 02/13/23 05:04 RDW 14.6 % (12.0-15.0) 02/13/23 05:04 Plt Count 280 10^3/uL (130-450) 02/13/23 05:04 MPV 10.4 fL (7.4-11.4) 02/13/23 05:04 Neut # (Auto) 7.4 10^3/uL (1.5-6.6) H 02/13/23 05:04 Lymph # (Auto) 2.8 10^3/uL (1.5-3.5) 02/13/23 05:04 [place] # (Auto) 0.8 10^3/uL (0.0-1.0) 02/13/23 05:04 Eos # (Auto) 0.4 10^3/uL (0.0-0.7) 02/13/23 05:04 Baso # (Auto) 0.1 10^3/uL (0.0-0.1) 02/13/23 05:04 Absolute Nucleated RBC 0.00 x10^3/uL 02/13/23 05:04 Total Counted 100 02/11/23 04:50 Band Neuts % (Manual) 0 % (0-10) 02/11/23 04:50 Abnorm Lymph % (Manual) 0 % 02/11/23 04:50 Metamyelocytes % 1 % (-0) H 02/11/23 04:50 Nucleated RBC % 0.0 /100WBC 02/13/23 05:04 Neutrophils # (Manual) 9.0 10^3/uL (1.5-6.6) H 02/11/23 04:50 Lymphocytes # (Manual) 2.9 10^3/uL (1.5-3.5) 02/11/23 04:50 Monocytes # (Manual) 0.9 10^3/uL (0.0-1.0) 02/11/23 04:50 Eosinophils # (Manual) 0.1 10^3/uL (0-0.7) 02/11/23 04:50 Basophils # (Manual) 0.0 10^3/uL (0-0.1) 02/11/23 04:50 Differential Comment MANUAL DIFFERENTIAL 02/11/23 04:50 WBC Morphology NORMAL APPEARANCE (NORMAL) 02/11/23 04:50 Platelet Estimate NORMAL (130-450,000) (NORMAL) 02/11/23 04:50 Platelet Morphology NORMAL APPEARANCE (NORMAL) 02/11/23 04:50 RBC Morph Micro Appear NORMAL APPEARANCE (NORMAL) 02/11/23 04:50 PT 15.7 secs (9.9-12.6) H 02/07/23 11:57 INR 1.4 (0.8-1.2) H 02/07/23 11:57 APTT 25.6 secs (24.9-33.3) 02/07/23 11:57 Sodium 139 mmol/L (135-145) 02/13/23 05:04 Potassium 3.8 mmol/L (3.5-4.5) 02/13/23 05:04 Chloride 106 mmol/L (101-111) 02/13/23 05:04 Carbon Dioxide 27 mmol/L (21-32) 02/13/23 05:04 Anion Gap 6.0 (6-13) 02/13/23 05:04 BUN 6 mg/dL (6-20) 02/13/23 05:04 Creatinine 0.5 mg/dL (0.6-1.3) L 02/13/23 05:04 Estimated GFR (MDRD) 163 (>89) 02/13/23 05:04 Glucose 100 mg/dL (74-104) 02/13/23 05:04 Calcium 8.5 mg/dL (8.5-10.3) 02/13/23 05:04 Phosphorus 3.3 mg/dL (3.7-7.2) L 02/11/23 04:50 Magnesium 1.7 mg/dL (1.7-2.3) 02/11/23 04:50 Total Bilirubin 2.2 mg/dL (0.2-1.0) H 02/13/23 05:04 AST 102 IU/L (10-42) H 02/13/23 05:04 ALT 108 IU/L (10-60) H 02/13/23 05:04 Alkaline Phosphatase 282 IU/L (42-121) H 02/13/23 05:04 Troponin I High Sens 13.6 ng/L (2.3-19.7) 02/09/23 20:51 Total Protein 6.0 g/dL (6.4-8.9) L 02/13/23 05:04 Albumin 2.8 g/dL (3.2-5.5) L 02/13/23 05:04 Globulin 3.2 g/dL (2.1-4.2) 02/13/23 05:04 Albumin/Globulin Ratio 0.9 (1.0-2.2) L 02/13/23 05:04 Lipase 21 U/L (11-82) 02/08/23 07:12 TSH 13.99 uIU/mL (0.34-5.60) H 02/10/23 04:24 Free T4 Direct 0.81 ng/dL (0.58-1.64) 02/10/23 04:24 Urine Color ORANGE 02/07/23 15:45 Urine Clarity CLEAR (CLEAR) 02/07/23 15:45 Urine pH 6.5 PH (5.0-7.5) 02/07/23 15:45 Ur Specific [place] <=1.005 (1.002-1.030) 02/07/23 15:45 Urine Protein 30 mg/dL (NEGATIVE) H 02/07/23 15:45 Urine Glucose (UA) NEGATIVE mg/dL (NEGATIVE) 02/07/23 15:45 Urine Ketones mg/dL (NEGATIVE) 02/07/23 15:45 Urine Occult Blood NEGATIVE (NEGATIVE) 02/07/23 15:45 Urine Nitrite NEGATIVE (NEGATIVE) 02/07/23 15:45 Urine Bilirubin COLOR INTERFERENCE (NEGATIVE) 02/07/23 15:45 Urine Urobilinogen 0.2 (NORMAL) E.U./dL (NORMAL) 02/07/23 15:45 Ur Leukocyte Esterase NEGATIVE (NEGATIVE) 02/07/23 15:45 Urine RBC 0-5 /HPF (0-5) 02/07/23 15:45 Urine WBC 0-3 /HPF (0-3) 02/07/23 15:45 Ur Squamous Epith Cells NONE SEEN (<= Few) 02/07/23 15:45 Urine Bacteria Few /HPF (None Seen) 02/07/23 15:45 Urine Mucus Few Strands 02/07/23 15:45 Ur Microscopic Review INDICATED 02/07/23 15:45 Urine Culture Comments NOT INDICATED 02/07/23 15:45 ABX Reporting Has patient been on IV antibiotics over the past 48 hours?: Yes
[2023-02-13] MEDS: polyethylene glycoL 3350 17 GM PACKET PO SCH (16:59)
[2023-02-13] MEDS: IPRATROPIUM/ALBUTEROL 3 ML NEB INH PRN (20:30)
[2023-02-13] MEDS: DOCUSATE SODIUM 100 MG CAPSULE PO SCH (21:11)
[2023-02-14] MEDS: SODIUM CHLORIDE FLUSH 0.9% 10 ML SYRINGE IVP SCH ×2 (01:30→08:12)
[2023-02-14] MEDS: PIPERACILLIN/TAZOBACTAM 3.375 GM in SODIUM CHLORIDE 0.9% MINIBAG 100 ML IV SCH (06:11)
[2023-02-14] MEDS: LEVOTHYROXINE 75 MCG TABLET PO SCH (06:11)
[2023-02-14] MEDS: FORMOTEROL FUMARATE NEB 20 MCG/2 ML INH SCH (07:06)
[2023-02-14] MEDS: BUDESONIDE 0.5 MG/2 ML NEB INH SCH (07:06)
[2023-02-14] MEDS ORDERED: metroNIDAZOLE 250 MG TABLET PO SCH (08:00)
[2023-02-14] MEDS: FINASTERIDE 5 MG TABLET PO SCH (08:11)
[2023-02-14] MEDS: PANTOPRAZOLE 40 MG VIAL IVP SCH (08:11)
[2023-02-14] MEDS: TERAZOSIN 2 MG CAPSULE PO SCH (08:11)
[2023-02-14] MEDS: DOCUSATE SODIUM 100 MG CAPSULE PO SCH (08:11)
[2023-02-14] MEDS: polyethylene glycoL 3350 17 GM PACKET PO SCH (08:12)
[2023-02-14] MEDS ORDERED: polyethylene glycoL 3350 17 GM PACKET PO SCH (09:00)
[2023-02-14] MEDS ORDERED: CIPROFLOXACIN 250 MG TABLET PO SCH (09:00)
--- NOTE | 2023-02-14 10:24 | Discharge Plan ---
Discharge Plan Problem Reviewed?: Yes Disposition: Home, Self Care Condition: Good Prescriptions: Ipratropium/Albuterol [Combivent Respimat] 4 gm IH Q6HR PRN #1 gm PRN Reason: Shortness Of Air/Wheezing Ciprofloxacin [Cipro] 500 mg PO BID 10 Days #40 tab metroNIDAZOLE [Flagyl] 500 mg PO TIDWM 10 Days #30 tab Levothyroxine [Synthroid] 75 mcg PO QDAC #30 tab Diet: Regular Activity Restrictions: Activity as Tolerated Additional Instructions or Follow Up instructions: Please follow up with your PCP to reviewYour new diagnosis of hypothyroidism. You will need a TSH blood test in about 6 weeks. Also, you will need a referral to gastroenterology to have the billiary stent removed which was placed during this hospital admission.This will be a vascular physician at [facility] where you had the initial stent placed. No Smoking: If you smoke, Please STOP! Call for help. Follow-up with: KIRILL JARRETT PA [Primary Care Provider] -
--- NOTE | 2023-02-14 10:29 | DISCHARGE SUMMARY ---
"Discharge Summary Admit Date: 02/08/23 Discharge Date: 02/14/23 Discharging Provider: Dr. Monroe Membreno Primary Care Provider: Pillo Escobar PA-C Condition at Discharge: Good Discharge Disposition: 01 Home, Self Care - DIAGNOSES Admission Diagnoses: Acute cholangitis Obstructive jaundiice s/p ERCP and biliary stent replacemnet Hyperbiliribinemia Abnormal LFTs Abdominal pain Leukocytosis Tobacco abuse COPD BPH Hyperlipidemia Discharge Diagnoses with Status of Each Condition: Acute cholangitisimproved BPH with urinary obstruction/LUTSstable Hypothyroidismnew diagnosis Paroxysmal atrial fibrillationstable COPDstable - HPI History of Present Illness: 72 y old male with PMH Tobacco abuse, COPD, BPH, hyperlipidemia, H/O cholecystectomy 2009, biliary stent, presented to the ER due to abdominal pain for 4 days.Pt describes the pain in epigastric area, intermittent, moderate in intensity, sharp in nature associated with nausea.Denies fever, vomiting, diarrhea, constipation, chest pain, SOB, symtoms. On presentaion , pt was afebrile Labs showed leukocytosis, abnormal LFT`s with hyyperbilirubinemia, Tbili 9.1 CT abdomen showed biliary stent In ER, patient was given zosyn GI at [facility] was consulted. Patient was transferred to [facility] s/p ERCP, sphinterotomy, sphincteroplasty, biliary sluge and pus removal and replacement of biliary stent. GI rec IV Abx, monitor LFTs and repeat ESRP in 6 week for the removal of biliary stent Patient was transferred back to [facility] Patient is admitted due to Acute cholangitis, ostructive jaundice s/p ERCP, abdominal pain - CONSULTS | PROCEDURES Consultations: GI Procedures: ERCP and biliary stent placed at [facility] - HOSPITAL COURSE Hospital Course: He presented with elevated WBC of 12.9, abdominal pain, very elevated LFTs, including bili. Imaging showed that a biliary stent, which he did not know he had, was causing obstruction. He was first transferred from our ER to [facility] and underwent an ERCP and he then returned to our ER via ambulance and was admitted. A verbal report was passed on from our ER provider to the admitting [facility] doctor. But the [facility] GI doctor's report was not a vailable to me until yesterday, 02/11 in our EMR. The findings at ERCP were sludge, gallstones and pus in the bile duct. His old stent was removed and a new stent was inserted. The case filler recommended iv antibiotics (but does not say for how long), and no antiplatelet or anticoagulants for 72 hours. And recommendation was to undergo ERCP at 4 to 6 weeks to remove that new stent. After he completed the 5 days of Zosyn he was transitioned to Cipro and Flagyl prior to discharge to complete 15 days of antibiotics. His labs have improved, however his bilirubin is still slightly elevated at discharge and his LFTs are also slightly elevated though he is asymptomatic and has been tolerating a regular diet well. He will require follow-up for labs as well as GI follow-up in 4 to 6 weeks for removal of the biliary stent that was placed at [facility]. In addition, he was diagnosed with hypothyroidism with low free T4 as well as elevated TSH while here and he was started on levothyroxine 75 mcg daily. He will need a repeat TSH in about 6 weeks. With regards to his atrial fibrillation, he remained in sinus rhythm throughout the hospital stay. His breathing has been stable and he has not required as needed nebulizers in the 24 hours prior to discharge. - ALLERGIES Allergies/Adverse Reactions: Allergies Allergy/AdvReac Type Severity Reaction Status Date / Time No Known Drug Allergies Allergy Verified 02/07/23 11:37 - MEDICATIONS Home Medications: Ambulatory Orders Medication Instructions Recorded Confirmed Finasteride [Proscar] 5 mg PO DAILY 02/07/23 02/07/23 Fluticasone/Vilanterol [Breo 1 puffs IH DAILY 02/07/23 02/07/23 Ellipta 100-25 Mcg INH] Terazosin [Hytrin] 10 mg PO DAILY 02/07/23 02/07/23 Ascorbic Acid [Vitamin C] 2 tab PO DAILY 02/09/23 02/09/23 Aspirin [Aspirin EC] 2 tab PO BID 02/09/23 02/09/23 Cholecalciferol [Vitamin D3] 1 tab PO DAILY 02/09/23 02/09/23 Ferrous Sulfate [Slow Release Iron] 1 tab PO DAILY 02/09/23 02/09/23 Zinc Gluconate [Zinc] 1 tab PO DAILY 02/09/23 02/09/23 Acetaminophen [Tylenol] 650 mg PO Q4HR PRN tab 02/14/23 Ciprofloxacin [Cipro] 500 mg PO BID 10 Days #40 tab 02/14/23 Docusate Sodium 100Mg Capsule 100 mg PO BID cap 02/14/23 [Colace 100Mg Capsule] Ipratropium/Albuterol [Combivent 4 gm IH Q6HR PRN #1 gm 02/14/23 Respimat] Levothyroxine [Synthroid] 75 mcg PO QDAC #30 tab 02/14/23 metroNIDAZOLE [Flagyl] 500 mg PO TIDWM 10 Days #30 tab 02/14/23 - PHYSICAL EXAM AT DISCHARGE General Appearance: positive: No acute distress Eyes Bilateral: positive: Normal inspection ENT: positive: ENT inspection nml Neck: positive: Nml inspection Respiratory: positive: Chest non-tender, No respiratory distress, Breath sounds nml Cardiovascular: positive: Regular rate & rhythm, No murmur, No gallop Abdomen: positive: Non-tender, No organomegaly, Nml bowel sounds, No distention Skin: positive: Color nml Extremities: positive: Non-tender, Nml appearance Neurologic/Psychiatric: positive: Oriented x3, CN's nml (2-12), Motor nml - LABS Result Diagrams: 02/13/23 05:04 02/13/23 05:04 - DIAGNOSTIC IMAGING Diagnostic Imaging Results: Final report reviewed - FOLLOW UP Follow Up: F/u with PCP - review new Dx of Hypothyroid. F/u with GI in 4-6 wks for biliary stent removal. - TIME SPENT Time Spent in Discharge (Minutes): 46"
[2023-02-14 10:57] VITALS: BP 123/64
== END 2023-02-14 12:40 | disposition home or self-care (01) | DRG 445 ==
LOC: ED 11:20 → MS2 02-08 21:50
PROVIDERS: ADMIT Internal Medicine; ATTEND Family Medicine Sports Medicine
DX: K80.32 Calculus of bile duct with acute cholangitis without obstruction (principal); K83.1 Obstruction of bile duct; K83.09 Other cholangitis; J44.9 Chronic obstructive pulmonary disease, unspecified; F17.200 Nicotine dependence, unspecified, uncomplicated; I47.29 Other ventricular tachycardia; T85.590A Other mechanical complication of bile duct prosthesis, initial encounter; N13.8 Other obstructive and reflux uropathy; N40.1 Benign prostatic hyperplasia with lower urinary tract symptoms; E03.9 Hypothyroidism, unspecified; I48.0 Paroxysmal atrial fibrillation; F17.210 Nicotine dependence, cigarettes, uncomplicated; E78.5 Hyperlipidemia, unspecified; Z90.49 Acquired absence of other specified parts of digestive tract; R33.8 Other retention of urine; J43.9 Emphysema, unspecified; I27.81 Cor pulmonale (chronic); I49.5 Sick sinus syndrome
CPT/HCPCS: 36415; 71045; 71260; 74177; 80053; 81001; 82310; 83690; 83735; 84100; 84439; 84443; 84484; 85025; 85610; 85730; 93005; 93306; 94640; 96365; 99284; 99285; A9270; J7626; Q9967; 81003; 87086; J8499

== ENCOUNTER 2023-03-18 09:45 | Outpatient (CLI) | payer MEDICARE, OTHER ==
--- NOTE | 2023-03-18 11:24 | Ultrasound Report ---
PROCEDURE: Aorta Screening INDICATIONS: AAA SCREENING, SMOKER TECHNIQUE: Real time scanning was performed of the aorta and iliac arteries, with image documentatio n. COMPARISON: None. FINDINGS: Aorta: Proximal aortic diameter measures 2.6 x 2.2 cm. Mid-aorta measures 2.2 x 2.1 cm. Distal aor tic diameter is 2.0 x 1.8 cm. Iliac arteries: Right common iliac artery measures 1.3 cm. Left common iliac artery measures 1.3 cm . IMPRESSION: Unremarkable screening ultrasound for abdominal aortic aneurysm. Recommended intervals for follow-up imaging of ectatic aortas and abdominal aortic aneurysms, per ACR consensus guidelines: 2.5-2.9 cm: 5 years 3.0-3.4 cm: 3 years 3.5-3.9 cm: 2 years 4.0-4.4 cm: 1 year 4.5-4.9 cm: 6 months + endovascular referral 5.0-5.5 cm: 3-6 months + endovascular referral Reviewed by: Robin Garcia MD on 03/18/2023 11:23 AM PDT Approved by: Robin Garcia MD on 03/18/2023 11:23 AM PDT Station ID: [id number]
--- NOTE | 2023-03-18 19:55 | CT Report ---
PROCEDURE: Low Dose Lung Cancer Screen INDICATIONS: SMOKER TECHNIQUE: A CT scan of the chest was performed. Intravenous contrast media was not administered. Images were re corded and evaluated at appropriate window settings. Reformats: axial MIP of the chest, coronal and s agittal. For radiation dose reduction, the following was used: automated exposure control, adjustment of mA and/or kV according to patient size. COMPARISON: CT chest 02/07/2023. FINDINGS: Image quality: Excellent. Prior cancer history: No. Lungs and pleura: No pleural effusions. No pneumothorax. No suspicious pulmonary nodules which requi re follow up. Mild to moderate centrilobular and paraseptal emphysema. Bandlike atelectasis versus sc arring is again seen at the inferior lingula. Mediastinum: Heart size is normal. No pericardial effusion. No large vessel abnormality. No mediastin al adenopathy by size criteria. Three vessel coronary artery calcifications. Multiple small calcifie d lymph nodes are seen in the upper anterior mediastinum. Chest wall and lower neck: Thyroid is unremarkable. No axillary or supraclavicular adenopathy by size . Bones: No aggressive osseous abnormality. Upper Abdomen: Postsurgical changes are seen in the gallbladder fossa. The previously seen biliary st ent is no longer visualized. The degree of biliary ductal dilatation appears decreased or resolved wh en compared to the prior CT, although is not well evaluated on this low-dose noncontrast exam. IMPRESSION: Lung RAD: 1 - Negative. Recommendation: Continue annual screening in 12 Months with LDCT Non-Lung Significant Findings: Coronary Arterial Calcification - Moderate or Severe. Consider cardiol ogy referral. Reviewed by: Kenroy Velez MD on 03/18/2023 7:54 PM PDT Approved by: Kenroy Velez MD on 03/18/2023 7:54 PM PDT Station ID: [id number]
== END 2023-03-18 09:46 | disposition home or self-care (01) ==
LOC: DI 09:45
PROVIDERS: ATTEND Student in an Organized Health Care Education/Training Program
DX: Z12.2 Encounter for screening for malignant neoplasm of respiratory organs (principal); J43.2 Centrilobular emphysema; F17.210 Nicotine dependence, cigarettes, uncomplicated; Z13.6 Encounter for screening for cardiovascular disorders

== ENCOUNTER 2023-12-26 10:00 | Emergency (ER) | payer MEDICARE, OTHER ==
--- NOTE | 2023-12-26 11:08 | XRAY Report ---
PROCEDURE: Chest 2V INDICATIONS: cough for 6 weeks TECHNIQUE: 2 views of the chest were acquired. COMPARISON: Chest x-ray 02/12/2023. CT chest 02/07/2023. FINDINGS: Surgical changes and devices: None. Lungs and pleura: No pleural effusions or pneumothorax. Patchy airspace opacities in the left lower lobe. Mediastinum: Mediastinal contours appear normal. Heart size is normal. Bones and chest wall: No suspicious bony lesions. Overlying soft tissues appear unremarkable. IMPRESSION: Left lower lobe pneumonia. Reviewed by: Socorro Bautista MD, PhD on 12/26/2023 11:07 AM PDT Approved by: Socorro Bautista MD, PhD on 12/26/2023 11:07 AM PDT Station ID: [id number]
--- NOTE | 2023-12-26 11:49 | ED Physician Documentation ---
PD HPI DYSPNEA - Stated complaint Stated Complaint: CONGESTION,SOA - Chief complaint Chief Complaint: Resp - History obtained from History obtained from: Patient - Additional information Additional information: 73-year-old gentleman with history of COPD presents with a month worth of productive cough and mild shortness of breath. It is not associated with fevers. He had some sick family members as well. PD PAST MEDICAL HISTORY - Past Medical History Past Medical History: Yes Respiratory: COPD : Benign prostate hypertrophy - Past Surgical History Past Surgical History: Yes General: Cholecystectomy - Present Medications Home Medications: Ambulatory Orders Medication Instructions Recorded Confirmed Finasteride [Proscar] 5 mg PO DAILY 02/07/23 12/26/23 Fluticasone/Vilanterol [Breo 1 puffs IH DAILY 02/07/23 12/26/23 Ellipta 100-25 Mcg Inhalr] Terazosin [Hytrin] 10 mg PO DAILY 02/07/23 12/26/23 Aspirin [Aspirin EC] 2 tab PO BID 02/09/23 12/26/23 Cholecalciferol [Vitamin D3] 1 tab PO DAILY 02/09/23 12/26/23 Zinc Gluconate [Zinc] 1 tab PO DAILY 02/09/23 12/26/23 Acetaminophen [Tylenol] 650 mg PO Q4HR PRN tab 02/14/23 12/26/23 Docusate Sodium 100Mg Capsule 100 mg PO BID cap 02/14/23 12/26/23 [Colace 100Mg Capsule] Ipratropium/Albuterol [Combivent 4 gm IH Q6HR PRN #1 gm 02/14/23 12/26/23 Respimat] Levothyroxine [Synthroid] 75 mcg PO QDAC #30 tab 02/14/23 12/26/23 Amoxicillin/Potassium Clav 2 tab PO BID 5 Days #20 ea 12/26/23 [Augmentin Xr 1,000-62.5 Tab] Azithromycin [Zithromax] 1 tab PO DAILY #4 tab 12/26/23 - Allergies Allergies/Adverse Reactions: Allergies Allergy/AdvReac Type Severity Reaction Status Date / Time No Known Drug Allergies Allergy Verified 12/26/23 10:09 - Social History Does the pt smoke?: Yes Smoking Status: Current every day smoker Does the pt drink ETOH?: Yes Does the pt have substance abuse?: No - Immunizations Immunizations are current?: Yes PD ED PE NORMAL - Vitals Vital signs reviewed: Yes - General General: Alert and oriented X 3, No acute distress - Neck Neck: Supple, no meningeal sign, No bony TTP - Cardiac Cardiac: RRR, No murmur - Respiratory Respiratory: Other (Rhonchi at both bases, no wheezes, no distress.) - Extremities Extremities: No edema, No calf tenderness / cord - Neuro Neuro: Alert and oriented X 3, Normal speech Results - Vitals Vitals: Vital Signs - 24 hr 12/26/23 12/26/23 10:04 11:40 Temperature 36.1 C L Heart Rate 98 76 Respiratory 18 13 Rate Blood Pressure 104/60 115/64 O2 Saturation 93 95 Oxygen O2 Source Room air - Rads (name of study) 2 view chest x-ray demonstrates left lower lobe pneumonia. Relevant Findings:: Final report received, EMP independent interpretation of test Departure - Departure Disposition: Home, Self Care Clinical Impression: Pneumonia Qualifiers: Pneumonia type: due to unspecified organism Laterality: left Lung location: lower lobe of lung Qualified Code(s): J18.9 - Pneumonia, unspecified organism Condition: Good Record reviewed to determine appropriate education?: Yes Instructions: Pneumonia Dc Prescriptions: Amoxicillin/Potassium Clav [Augmentin Xr 1,000-62.5 Tab] 2 tab PO BID 5 Days #20 ea Azithromycin [Zithromax] 1 tab PO DAILY #4 tab Comments: I sent your prescription electronically to the [facility] in [place]. You are seen today for left lower lobe pneumonia which we are treating with antibiotics. Plan to follow-up with your doctor on around Saturday for recheck call today for an appointment. Return for new or worsening symptoms.
[2023-12-26] MEDS: AZITHROMYCIN 250 MG TABLET PO STA (11:57)
[2023-12-26] MEDS: AMOX/CLAV 875 MG/125 MG TABLET PO STA (11:57)
[2023-12-26 11:58] VITALS: BP 132/67; O2SAT 96
== END 2023-12-26 12:00 | disposition home or self-care (01) ==
LOC: ED 10:00
DX: J18.9 Pneumonia, unspecified organism (principal); F17.200 Nicotine dependence, unspecified, uncomplicated
CPT/HCPCS: 71046; 99283; 99284; A9270

== ENCOUNTER 2024-02-17 23:47 | Outpatient (CLI) | payer MEDICARE, OTHER | END 2024-02-17 23:59 | disposition critical access hospital (66) | LOC: EMS 23:47 | DX: R55 Syncope and collapse (principal); R53.1 Weakness; R53.83 Other fatigue; I95.9 Hypotension, unspecified; R19.7 Diarrhea, unspecified | CPT/HCPCS: A0425; A0427 ==

== ENCOUNTER 2024-02-18 00:01 | Inpatient (IN) | payer MEDICARE, OTHER ==
--- NOTE | 2024-02-18 00:08 | ED Physician Documentation ---
PD HPI SYNCOPE - Stated complaint Stated Complaint: NEAR SYNCOPE X 3, RECENT PNA - History obtained from History obtained from: Patient, EMS - Additional information Additional information: BIBA. HPI from patient, EMS. Patient complains of 2 to 3 days of gradual onset, gradually worsening dyspnea on exertion and productive cough. He was treated released from this emergency department last month for similar symptoms, found to have pneumonia on x-ray and was prescribed Zithromax and Augmentin. He tells me that the symptoms he has been having the past 2 to 3 days feel quite similar to the symptoms he came to the ER with last month. Patient was seen in the outpatient setting earlier today for the symptoms; he says no tests were done, but that he was prescribed Zithromax (has taken 1 dose thus far). Earlier tonight, the patient developed diarrhea along with increasing generalized weakness. Episodes of lightheadedness tonight. EMS says family described near-syncopal episode but patient has no recollection of this. EMS reports initial blood pressures were 70s/40s but improved to 90s-100s (SBP) after IV fluids en route (total of 500cc NS) Denies fever, chest pain. Chronic mild BLE edema, "no worse than usual" (per patient). Denies n/v, denies blood in stool/dark tarry stool. Review of Systems Constitutional: reports: Fatigue. denies: Fever, Chills, Sweats Cardiac: reports: Pedal edema (mild, chronic). denies: Chest pain / pressure, Palpitations Respiratory: reports: Dyspnea, Cough. denies: Hemoptysis, Wheezing GI: reports: Reviewed and negative : denies: Dysuria, Frequency PD PAST MEDICAL HISTORY - Past Medical History Respiratory: COPD : Benign prostate hypertrophy - Past Surgical History Past Surgical History: Yes General: Cholecystectomy - Present Medications Home Medications: Ambulatory Orders Medication Instructions Recorded Confirmed Finasteride [Proscar] 5 mg PO DAILY 02/07/23 12/26/23 Fluticasone/Vilanterol [Breo 1 puffs IH DAILY 02/07/23 12/26/23 Ellipta 100-25 Mcg Inhalr] Terazosin [Hytrin] 10 mg PO DAILY 02/07/23 12/26/23 Aspirin [Aspirin EC] 2 tab PO BID 02/09/23 12/26/23 Cholecalciferol [Vitamin D3] 1 tab PO DAILY 02/09/23 12/26/23 Zinc Gluconate [Zinc] 1 tab PO DAILY 02/09/23 12/26/23 Acetaminophen [Tylenol] 650 mg PO Q4HR PRN tab 02/14/23 12/26/23 Docusate Sodium 100Mg Capsule 100 mg PO BID cap 02/14/23 12/26/23 [Colace 100Mg Capsule] Ipratropium/Albuterol [Combivent 4 gm IH Q6HR PRN #1 gm 02/14/23 12/26/23 Respimat] Levothyroxine [Synthroid] 75 mcg PO QDAC #30 tab 02/14/23 12/26/23 Amoxicillin/Potassium Clav 2 tab PO BID 5 Days #20 ea 12/26/23 [Augmentin Xr 1,000-62.5 Tab] Azithromycin [Zithromax] 1 tab PO DAILY #4 tab 12/26/23 - Allergies Allergies/Adverse Reactions: Allergies Allergy/AdvReac Type Severity Reaction Status Date / Time No Known Drug Allergies Allergy Verified 12/26/23 10:09 - Social History Does the pt smoke?: Yes Smoking Status: Current every day smoker Does the pt drink ETOH?: Yes Does the pt have substance abuse?: No - Immunizations Immunizations are current?: Yes PD ED PE NORMAL - Vitals Vital signs reviewed: Yes - General General: Alert and oriented X 3, No acute distress, Well developed/nourished, Other (occasional wet cough) - HEENT HEENT: Other (tacky mucous membranes) - Neck Neck: Supple, no meningeal sign - Cardiac Cardiac: RRR (baseline regular rhythm with frequent extra beats), No murmur - Respiratory Respiratory: No respiratory distress - Abdomen Abdomen: Soft, Non tender, Non distended - Derm Derm: Normal color, Warm and dry - Extremities Extremities: No edema - Neuro Neuro: Alert and oriented X 3 PD ED PE EXPANDED - Respiratory Respiratory: Decreased breath sounds, Other (scattered bilateral end-expiratory course wheezing) Results - Vitals Vitals: Vital Signs - 24 hr 02/17/24 02/18/24 23:58 02:18 Temperature 36 C L Heart Rate 88 71 Respiratory 20 22 Rate Blood Pressure 103/60 105/80 O2 Saturation 92 89 L Oxygen O2 Source Room air - EKG (time done) No standard instances EKG releavant findings:: EKG personally interpreted by author of this note. Relevant findings are: Rate: Rate (enter#) (82) Rhythm: NSR [place]: LAD Intervals: Other (short [place] interval) QRS: Low voltage Ischemia: Normal ST segments, Non specific changes (inferolateral flat T waves) - Labs Labs: Laboratory Tests 02/18/24 02/18/24 02/18/24 00:08 00:08 00:08 WBC 10.7 RBC 4.78 Hgb 14.4 Hct 43.9 MCV 91.8 MCH 30.1 MCHC 32.8 RDW 13.7 Plt Count 243 MPV 9.7 Neut # (Auto) 8.9 H Lymph # (Auto) 1.0 L [place] # (Auto) 0.6 Eos # (Auto) 0.0 Baso # (Auto) 0.0 Absolute Nucleated RBC 0.00 Nucleated RBC % 0.0 Sodium 139 Potassium 3.3 L Chloride 104 Carbon Dioxide 21 Anion Gap 14.0 H BUN 14 Creatinine 0.9 Estimated GFR (MDRD) 83 L Glucose 156 H Calcium 8.6 Total Bilirubin 0.7 AST 73 H ALT 47 Alkaline Phosphatase 145 H Troponin I High Sens 12.6 B-Natriuretic Peptide Total Protein 6.9 Albumin 3.0 L Globulin 3.9 Albumin/Globulin Ratio 0.8 L Lipase 40 Nasal Adenovirus (PCR) NOT DETECTED Nasal B. parapertussis DNA (PCR) NOT DETECTED Nasal Coronavir 229E PCR NOT DETECTED Nasal Coronavir HKU1 PCR NOT DETECTED Nasal Coronavir NL63 PCR NOT DETECTED Nasal Coronavir OC43 PCR NOT DETECTED Nasal Enterovir/Rhinovir PCR NOT DETECTED Nasal Influenza B PCR NOT DETECTED Nasal Influenza A PCR NOT DETECTED Nasal Parainfluen 1 PCR NOT DETECTED Nasal Parainfluen 2 PCR NOT DETECTED Nasal Parainfluen 3 PCR NOT DETECTED Nasal Parainfluen 4 PCR NOT DETECTED Nasal RSV (PCR) NOT DETECTED Nasal B.pertussis DNA PCR NOT DETECTED Nasal C.pneumoniae (PCR) NOT DETECTED Saurav Human Metapneumo PCR NOT DETECTED Nasal M.pneumoniae (PCR) NOT DETECTED Nasal SARS-CoV-2 (PCR) DETECTED A 02/18/24 00:08 WBC RBC Hgb Hct MCV MCH MCHC RDW Plt Count MPV Neut # (Auto) Lymph # (Auto) [place] # (Auto) Eos # (Auto) Baso # (Auto) Absolute Nucleated RBC Nucleated RBC % Sodium Potassium Chloride Carbon Dioxide Anion Gap BUN Creatinine Estimated GFR (MDRD) Glucose Calcium Total Bilirubin AST ALT Alkaline Phosphatase Troponin I High Sens B-Natriuretic Peptide 50 Total Protein Albumin Globulin Albumin/Globulin Ratio Lipase Nasal Adenovirus (PCR) Nasal B. parapertussis DNA (PCR) Nasal Coronavir 229E PCR Nasal Coronavir HKU1 PCR Nasal Coronavir NL63 PCR Nasal Coronavir OC43 PCR Nasal Enterovir/Rhinovir PCR Nasal Influenza B PCR Nasal Influenza A PCR Nasal Parainfluen 1 PCR Nasal Parainfluen 2 PCR Nasal Parainfluen 3 PCR Nasal Parainfluen 4 PCR Nasal RSV (PCR) Nasal B.pertussis DNA PCR Nasal C.pneumoniae (PCR) Saurav Human Metapneumo PCR Nasal M.pneumoniae (PCR) Nasal SARS-CoV-2 (PCR) - Rads (name of study) chest xray Relevant Findings:: Prelim report reviewed, See rad report PD Medical Decision Making - ED course Complexity details: reviewed results, re-evaluated patient, considered differential, d/w patient ED course: Unremarkable CBC, ER abdominal panel. Normal hs-cTn, normal BNP. Chest x-ray demonstrates resolving left lower lobe infiltrate. Patient test positive for Sars-CoV2. Room-air pulse ox at rest is lower 90s. Unfortunately, after test resulted and results discussed with patient, patient did not do well on a "road test". Within a short distance from his room, he complained of (and exhibited) significant generalized weakness and worsening dyspnea. Although he remained normotensive, his pulse ox dropped to 89%, correlating with his increasing complaint of dyspnea. I discussed this case with the on-call [facility] [place] telehealth practitioner and patient is accepted to [facility] hospitalist's service. Patient was given total of 1 liter NS (500 cc en route to ED, the rest given during ED stay). Departure - Departure Disposition: ED Place in Observation Clinical Impression: COVID-19, Weakness COPD (chronic obstructive pulmonary disease) Qualifiers: COPD type: emphysema Emphysema type: unspecified Qualified Code(s): J43.9 - Emphysema, unspecified Condition: Stable Discharge Date/Time: 02/18/24 03:45
[2024-02-18 00:22] LABS: BASOPHILS % (AUTO) 0.2 %; HCT - HEMATOCRIT 43.9 % (42.0-52.0); HGB - HEMOGLOBIN 14.4 g/dL (14.0-18.0); LYMPHOCYTES % (AUTO) 9.4 %; MEAN CORPUSCULAR HEMOGLOBIN 30.1 pg (27.0-31.0); MEAN CORPUSCULAR HGB CONC 32.8 g/dL (32.0-36.0); MEAN CORPUSCULAR VOLUME 91.8 fL (80.0-94.0); MEAN PLATELET VOLUME 9.7 fL (7.4-11.4); MONOCYTES # (AUTO) 0.6 10^3/uL (0.0-1.0); MONOCYTES % (AUTO) 5.7 %; NEUTROPHILS # (AUTO) 8.9 10^3/uL (1.5-6.6); NEUTROPHILS % (AUTO) 83.4 %; PLT - PLATELET COUNT 243 10^3/uL (130-450); RED BLOOD COUNT 4.78 10^6/uL (4.70-6.10); RED CELL DISTRIBUTION WIDTH 13.7 % (12.0-15.0); WHITE BLOOD COUNT 10.7 x10^3/uL (4.8-10.8)
[2024-02-18] MEDS: SODIUM CHLORIDE 0.9% 1,000 ML IV STA (00:36)
[2024-02-18 00:39] LABS: ALBUMIN/GLOBULIN RATIO 0.8 (1.0-2.2); BILIRUBIN,TOTAL 0.7 mg/dL (0.2-1.0); CALCIUM 8.6 mg/dL (8.5-10.3); CREATININE 0.9 mg/dL (0.6-1.3); POTASSIUM 3.3 mmol/L (3.5-4.5); TOTAL PROTEIN 6.9 g/dL (6.4-8.9)
[2024-02-18 00:40] LABS: TROPONIN I HIGH SENSITIVITY 12.6 ng/L (2.3-19.7)
--- NOTE | 2024-02-18 00:51 | XRAY Report ---
PROCEDURE: Chest 1V INDICATIONS: cough TECHNIQUE: One view of the chest was acquired. COMPARISON: Chest radiographs 12/26/2023. FINDINGS: Surgical changes and devices: None. Lungs and pleura: Mild basilar opacities have decreased. No pleural effusion or pneumothorax. Mediastinum: Mediastinal contours appear normal. Heart size is normal. Bones and chest wall: No suspicious bony lesions. Overlying soft tissues appear unremarkable. IMPRESSION: Resolving left basilar opacities. Reviewed by: Kenroy Velez MD on 02/18/2024 12:50 AM PDT Approved by: Kenroy Velez MD on 02/18/2024 12:50 AM PDT Station ID: [id number]
[2024-02-18 01:13] LABS: CORONAVIRUS 229E-RESP PCR NOT DETECTED; CORONAVIRUS HKU1-RESP PCR NOT DETECTED; CORONAVIRUS NL63-RESP PCR NOT DETECTED; CORONAVIRUS OC43-RESP PCR NOT DETECTED
[2024-02-18 01:14] LABS: B. PARAPERTUSSIS- RESP PCR PAN NOT DETECTED; B. PERTUSSIS- RESP PCR PANEL NOT DETECTED; C. PNEUMONIAE- RESP PCR PANEL NOT DETECTED; HUMAN METAPNEUMOVIRUS NOT DETECTED; INFLUENZA A- RESP PCR PANEL NOT DETECTED; INFLUENZA B - RESP PCR PANEL NOT DETECTED; M. PNEUMONIAE- RESP PCR PANEL NOT DETECTED; PARAINFLUENZA VIRUS 1 NOT DETECTED; PARAINFLUENZA VIRUS 2 NOT DETECTED; PARAINFLUENZA VIRUS 3 NOT DETECTED; PARAINFLUENZA VIRUS 4 NOT DETECTED; RHINOVIRUS/ENTEROVIRUS NOT DETECTED; RSV- RESP PCR PANEL NOT DETECTED; SARS-CoV-2 -RESP PCR PANEL DETECTED
[2024-02-18] MEDS ORDERED: IPRATROPIUM/ALBUTEROL 3 ML NEB INH PRN (02:37)
--- NOTE | 2024-02-18 02:37 | HISTORY & PHYSICAL EXAMINATION ---
Chief Complaint - Chief Complaint Chief Complaint: Weakness, Shortness of breath History of Present Illness - Admitted From Admitted From:: ER - History Obtained From Records Reviewed: Yes History obtained from: Pt, staff, chart Exam Limitations: Virtual exam - History of Present Illness HPI Comment/Other: H&P was conducted via video remotely, using Access Cart. Patient is in [place]. Physician is in [place]. No one is at bedside. 73 yo M with PMH of COPD--not on O2, Tobacco use, HLD, BPH, Hypothyroidism, recent PNA presented to the ER with c/o 2 week h/o cough, SOB, weakness. Pt had contact with his 16 month old granddaughter who goes to daycare last month when she had URI symptoms. He subsequently had c/o cough, SOB and presented to the ER on 12/26/23 and was dx'd with LLL PNA 12/26/23 and px'd Zpak, Augmentin. Pt's symptoms improved. His granddaughter then came for a visit about 2 weeks while she had a new URI and was coughing near pt. Pt then began to c/o cough with clear then green sputum, chest congestion, Shortness of breath, weakness, walking imbalance. No F/C. No dizziness. Today, pt saw a Provider in the clinic and was given a prescription for Zpak. Pt took his first dose of Azithromycin around 8P. About 1 hour later, he had an episode of explosive diarrhea, no blood. Later in the evening, he stood up and fell to the ground. Pt says that his son told him that he had passed out, but pt does not remember if he had LOC. His son called EMS. No abdo pain, N/V. Upon arrival, EMS reported BP 70s/40s, 500 cc NS given enroute and SBP improved to 90s-100s. In the ER, BP 103/60, SpO2 92% RA at rest, SpO2 89% RA s/p ambulation K 3.3, Glc 156, COVID-19+ CXR: resolving infiltrate LLL EKG: NSR at 82 bpm, +PVCs, no STTw changes Pt was given IVF in the ER. History - Past Medical History Respiratory: reports: COPD : reports: Benign prostate hypertrophy MRSA Hx?: No - Past Surgical History General: reports: Cholecystectomy Meds/Allgy - Home Medications Home Medications: Ambulatory Orders Medication Instructions Recorded Confirmed Finasteride [Proscar] 5 mg PO DAILY 02/07/23 12/26/23 Fluticasone/Vilanterol [Breo 1 puffs IH DAILY 02/07/23 12/26/23 Ellipta 100-25 Mcg Inhalr] Terazosin [Hytrin] 10 mg PO DAILY 02/07/23 12/26/23 Aspirin [Aspirin EC] 2 tab PO BID 02/09/23 12/26/23 Cholecalciferol [Vitamin D3] 1 tab PO DAILY 02/09/23 12/26/23 Zinc Gluconate [Zinc] 1 tab PO DAILY 02/09/23 12/26/23 Acetaminophen [Tylenol] 650 mg PO Q4HR PRN tab 02/14/23 12/26/23 Docusate Sodium 100Mg Capsule 100 mg PO BID cap 02/14/23 12/26/23 [Colace 100Mg Capsule] Ipratropium/Albuterol [Combivent 4 gm IH Q6HR PRN #1 gm 02/14/23 12/26/23 Respimat] Levothyroxine [Synthroid] 75 mcg PO QDAC #30 tab 02/14/23 12/26/23 Amoxicillin/Potassium Clav 2 tab PO BID 5 Days #20 ea 12/26/23 [Augmentin Xr 1,000-62.5 Tab] Azithromycin [Zithromax] 1 tab PO DAILY #4 tab 12/26/23 - Allergies Allergies/Adverse Reactions: Allergies Allergy/AdvReac Type Severity Reaction Status Date / Time No Known Drug Allergies Allergy Verified 12/26/23 10:09 Review of Systems - All Other Systems All Other Systems: reports: Reviewed and negative Exam - Vital Signs Reviewed Vital Signs: Yes Vital Signs: Vital Signs x48h Temp Pulse Resp BP Pulse Ox 02/18/24 02:18 71 22 105/80 89 L 02/17/24 23:58 36 C L 88 20 103/60 92 - Physical Exam General Appearance: positive: No acute distress, Alert Eyes Bilateral: positive: EOMI, No scleral icterus ENT: positive: Dry mucous membranes Respiratory: positive: Other (Access cart stethoscope not working; per ER Provider: Decreased breath sounds, Other (scattered bilateral end-expiratory course wheezing)) Cardiovascular: positive: Other (Access cart stethoscope not working; per ER Provider: RRR, no murmurs) Abdomen: positive: Other (per ER Provider: non-distended, NT, Soft) Extremities: positive: Other (per ER Provider: moves all extrem, no edema) Neurologic/Psychiatric: positive: Oriented x3, Mood/affect nml, Other (per ER Provider: NFD) Conclusion/Plan - Problem List (1) COPD exacerbation Conclusion/Plan: COVID-19+ LLL Pneumonia COPD Exacerbation Hypoxia -SpO2 92% RA at rest, SpO2 89% RA s/p ambulation -COVID-19+ -CXR: resolving infiltrate LLL -EKG: NSR at 82 bpm, +PVCs, no STTw changes -admit to Obs/Med Surg with Tele -O2 support PRN -Duonebs PRN -continue home meds: steroid MDI -SoluMedrol 40 mg IV daily, Levofloxacin IV daily -tobacco cessation counseling -isolation precautions -pt's symptoms x 2 weeks; out of the treatment window for COVID-19 tx -supportive care Hypotension Presyncope (vs Syncope) Weakness Fatigue -most likely d/t illness -EMS reported BP 70s/40s, 500 cc NS given enroute and SBP improved to 90s-100s. -In the ER, BP 103/60 -Pt was given IVF in the ER. -continue IVF -PT/OT eval Loose stools x 1 -most likely d/t COVID-19 -pt recently on A/Bs -if pt continues to have loose stools, consider stool cx and CDiff testing Hypokalemia -K 3.3 -supplement now and PRN Hyperglycemia -Glc 156 -check Hgba1c BPH -continue home medications: Proscar, Hytrin Hypothyroidism -continue home medications: Levothyroxine -check TSH Tobacco use -cessation counseling VTE Prophylaxis: Lovenox Code Status: D/W pt; he is DNR/DNI ~Saundra Mercado MD Hospitalist - Lab Results Lab results reviewed: Yes Fish Bones: 02/18/24 00:08 02/18/24 00:08
[2024-02-18] MEDS ORDERED: ONDANSETRON 4 MG/2 ML VIAL IVP PRN (02:40)
[2024-02-18] MEDS ORDERED: ONDANSETRON ODT 4 MG TABLET TL PRN (02:40)
[2024-02-18] MEDS: levoFLOXacin 750 MG/150 ML 750 MG/150 ML BAG IV SCH (05:04)
[2024-02-18] MEDS: POTASSIUM CHLORIDE 20 MEQ TABLET PO ONE (05:04)
[2024-02-18] MEDS: SODIUM CHLORIDE 0.9% 1,000 ML IV SCH (05:04)
[2024-02-18] MEDS: methylPREDNISolone SUCCINATE 40 MG/ML VIAL IVP SCH (05:05)
[2024-02-18] MEDS: LEVOTHYROXINE 75 MCG TABLET PO SCH (06:12)
[2024-02-18 06:30] LABS: BASOPHILS % (AUTO) 0.2 %; HCT - HEMATOCRIT 39.4 % (42.0-52.0); HGB - HEMOGLOBIN 12.8 g/dL (14.0-18.0); LYMPHOCYTES % (AUTO) 10.2 %; MEAN CORPUSCULAR HEMOGLOBIN 29.8 pg (27.0-31.0); MEAN CORPUSCULAR HGB CONC 32.5 g/dL (32.0-36.0); MEAN CORPUSCULAR VOLUME 91.6 fL (80.0-94.0); MEAN PLATELET VOLUME 9.7 fL (7.4-11.4); MONOCYTES # (AUTO) 0.5 10^3/uL (0.0-1.0); MONOCYTES % (AUTO) 4.7 %; NEUTROPHILS # (AUTO) 8.3 10^3/uL (1.5-6.6); NEUTROPHILS % (AUTO) 84.1 %; PLT - PLATELET COUNT 238 10^3/uL (130-450); RED CELL DISTRIBUTION WIDTH 13.8 % (12.0-15.0); WHITE BLOOD COUNT 9.8 x10^3/uL (4.8-10.8)
[2024-02-18 06:48] LABS: CALCIUM 8.2 mg/dL (8.5-10.3); CREATININE 0.5 mg/dL (0.6-1.3); POTASSIUM 3.3 mmol/L (3.5-4.5)
[2024-02-18] MEDS: LACTATED RINGERS 1,000 ML IV SCH (07:07)
[2024-02-18] MEDS: FORMOTEROL FUMARATE NEB 20 MCG/2 ML INH SCH (07:09)
[2024-02-18] MEDS: BUDESONIDE 0.5 MG/2 ML NEB INH SCH (07:09)
[2024-02-18] MEDS: FINASTERIDE 5 MG TABLET PO SCH (08:32)
[2024-02-18] MEDS: ENOXAPARIN 40 MG/0.4 ML SYRINGE SUBQ SCH (08:32)
[2024-02-18] MEDS: CHOLECALCIFEROL 25 MCG TABLET PO SCH (08:32)
[2024-02-18] MEDS: SACCHAROMYCES BOULARDII 250 MG CAPSULE PO SCH (08:32)
[2024-02-18 08:44] LABS: ESTIMATED AVERAGE GLUCOSE 120 mg/dL (70-100); HEMOGLOBIN A1c% 5.8 % (4.27-6.07)
[2024-02-18] MEDS ORDERED: ZINC GLUCONATE 50 MG PO SCH (09:00)
[2024-02-18] MEDS ORDERED: [UNRECOGNIZED DRUG - OTHER] IH SCH (09:00)
[2024-02-18] MEDS ORDERED: ASPIRIN EC 325 MG TABLET PO SCH (09:00)
[2024-02-18] MEDS ORDERED: TERAZOSIN 5 MG PO SCH (09:00)
[2024-02-18] MEDS: SODIUM CHLORIDE FLUSH 0.9% 10 ML SYRINGE IVP SCH (09:41)
--- NOTE | 2024-02-18 16:53 | PHARMACY PROGRESS NOTE ---
- Best Possible Medication History Admit Date and Time: 02/18/24 0240 Processed by: Pharmacy Medications reviewed in ED?: No Medication History completed: Yes Secondary Source(s): Written medication list, Other family member (son), Insurance records As the person ultimately responsible for medication therapy, providers are able to order a medication from an existing home medication list in [facility] via the "Reconcile Routine" prior to Confirmation of that medication by ict customer support officer. Such practice is discouraged except when the physician, in their clinical judgment, deems that a medical need exists for a medication without regard to previous use.
--- NOTE | 2024-02-18 17:12 | PROVIDER PROGRESS NOTE ---
Progress Note February 18, 2024 5:10 PM He is observation status for COVID with hypoxia and COPD exacerbation. He also had passed out several times on the way to the bathroom because of severe copious diarrhea. He said from that episode yesterday to right this moment, he is about 75% better. He does not feel like he is get a pass out anymore. When he gets up to walk with the nurse she still pretty shaky and short of breath but he can do it. He is using a walker. Because he was having syncope, I ordered an echo and the results are pending. I am changing him to inpatient status since I do not feel he is stable enough to go home yet. While his lungs have coarse upper airway sounds, he has nasal tone of voice from congestion, he is still weak, tired. Not quite ready to be home on his own. He tells me that he has not had his thyroid checked in a long time while on Synthroid so I will check a TSH tomorrow morning. He is walking enough that I d o not need him to do PT right now. But I would like nursing to do orthostatics because of the syncope history.
[2024-02-18] MEDS: TERAZOSIN 2 MG CAPSULE PO SCH (20:55)
[2024-02-19] MEDS: ACETAMINOPHEN 325 MG TABLET PO PRN (00:44)
[2024-02-19] MEDS: guaiFENesin/DEXTROMETHORPHAN 10 ML UDC PO PRN (00:45)
[2024-02-19] MEDS ORDERED: LIDOCAINE PATCH 5% TOP PRN (01:00)
[2024-02-19 05:52] LABS: BASOPHILS % (AUTO) 0.1 %; HCT - HEMATOCRIT 39.4 % (42.0-52.0); HGB - HEMOGLOBIN 12.5 g/dL (14.0-18.0); MEAN CORPUSCULAR HEMOGLOBIN 29.1 pg (27.0-31.0); MEAN CORPUSCULAR HGB CONC 31.7 g/dL (32.0-36.0); MEAN CORPUSCULAR VOLUME 91.6 fL (80.0-94.0); MEAN PLATELET VOLUME 9.7 fL (7.4-11.4); MONOCYTES % (AUTO) 6.5 %; NEUTROPHILS % (AUTO) 77.9 %; PLT - PLATELET COUNT 259 10^3/uL (130-450); RED CELL DISTRIBUTION WIDTH 13.9 % (12.0-15.0); WHITE BLOOD COUNT 9.6 x10^3/uL (4.8-10.8)
[2024-02-19 06:07] LABS: CALCIUM 8.4 mg/dL (8.5-10.3); CREATININE 0.5 mg/dL (0.6-1.3); POTASSIUM 3.9 mmol/L (3.5-4.5)
[2024-02-19 06:19] LABS: THYROID STIMULATING HORMONE 0.42 uIU/mL (0.34-5.60)
[2024-02-19 06:25] LABS: ABNORMAL LYMPHS % (MANUAL) 0 %
[2024-02-19 06:26] LABS: BAND NEUTROPHILS % (MANUAL) 1 %; DIFFERENTIAL COMMENT MANUAL DIFFERENTIAL; LYMPHOCYTES % (MANUAL) 10 %; MONOCYTES # (MANUAL) 0.8 10^3/uL (0.0-1.0); NEUTROPHILS # (MANUAL) 7.9 10^3/uL (1.5-6.6); PLATELET ESTIMATE, MANUAL NORMAL (130-450,000) (NORMAL); RBC MORPHOLOGY (MULTIPLE) NORMAL APPEARANCE (NORMAL)
[2024-02-19] MEDS: ASPIRIN 325 MG TABLET PO SCH (08:57)
[2024-02-19] MEDS: SODIUM CHLORIDE 0.9% 500 ML IV ONE (14:09)
--- NOTE | 2024-02-19 18:31 | PROVIDER PROGRESS NOTE ---
Subjective - Prog Note Date Prog Note Date: 02/19/24 Prog Note Time: 18:29 - Subjective Pt reports feeling: Improved Subjective: He says he feels better. He is actually been able to get up to go to the bathroom using a walker. Nursing standby assist. He is not passing out. He says he passed out many many times when he was at home. But that was with diarrhea. He is not having diarrhea here. But he is still orthostatic. This morning nursing checked and he was 119 sitting and up to 72 systolic and he was quite dizzy with this. No appetite. But he denies chest pain. Denies shortness of breath. He does have a congested cough that is nonproductive. No hemoptysis. No abdominal pain. Current Medications - Current Medications Current Medications: Active Medications Acetaminophen (Acetaminophen 325 Mg Tablet) 650 mg PO Q4HR PRN PRN Reason: Pain 1 to 4, or Fever Last Admin: 02/19/24 00:44 Dose: 650 mg Aspirin (Aspirin 325 Mg Tablet) 650 mg PO BID [facility] Last Admin: 02/19/24 08:57 Dose: 650 mg Atorvastatin Calcium (Atorvastatin 40 Mg Tablet) 40 mg PO QPM DRISS Budesonide (Budesonide 0.5 Mg/2 Ml Neb) 0.5 mg INH RTBID DRISS Last Admin: 02/19/24 07:32 Dose: 0.5 mg Cholecalciferol (Cholecalciferol 25 Mcg Tablet) 25 mcg PO DAILY DRISS Last Admin: 02/19/24 08:58 Dose: 25 mcg Enoxaparin Sodium (Enoxaparin 40 Mg/0.4 Ml Syringe) 40 mg SUBQ DAILY [facility] Last Admin: 02/19/24 08:58 Dose: 40 mg Finasteride (Finasteride 5 Mg Tablet) 5 mg PO DAILY [facility] Last Admin: 02/19/24 08:57 Dose: 5 mg Formoterol Fumarate (Formoterol Fumarate Neb 20 Mcg/2 Ml) 20 mcg INH RTBID DRISS Last Admin: 02/19/24 07:32 Dose: 20 mcg Guaifenesin (Guaifenesin/Dextromethorphan 10 Ml Udc) 10 ml PO Q6HR PRN PRN Reason: Cough Last Admin: 02/19/24 00:45 Dose: 10 ml Levofloxacin (Levaquin 750 Mg/150 Ml) 750 mg in 150 mls @ 100 mls/hr IV Q24H [facility] Stop: 02/22/24 04:29 Last Infusion: 02/19/24 05:30 Dose: Infused Levothyroxine Sodium (Levothyroxine 75 Mcg Tablet) 75 mcg PO QDAC [facility] Last Admin: 02/19/24 06:33 Dose: 75 mcg Lidocaine (Lidocaine Patch 5%) 1 patch TOP DAILY PRN PRN Reason: Moderate Pain (Level 4-6) Methylprednisolone (Methylprednisolone Succinate 40 Mg/Ml Vial) 40 mg IVP DAILY [facility] Last Admin: 02/19/24 08:58 Dose: 40 mg Ondansetron HCl (Ondansetron Odt 4 Mg Tablet) 4 mg TL Q6HR PRN PRN Reason: Nausea / Vomiting Ondansetron HCl (Ondansetron 4 Mg/2 Ml Vial) 4 mg IVP Q6HR PRN PRN Reason: Nausea / Vomiting Saccharomyces Boulardii (Saccharomyces Boulardii 250 Mg Capsule) 250 mg PO BIDWM [facility] Last Admin: 02/19/24 16:37 Dose: 250 mg Sodium Chloride (Sodium Chloride Flush 0.9% 10 Ml Syringe) 10 ml IVP PRN PRN PRN Reason: NEEDED PER PROVIDER ORDERS Sodium Chloride (Sodium Chloride Flush 0.9% 10 Ml Syringe) 10 ml IVP 0100,0900,1700 [facility] Last Admin: 02/19/24 16:37 Dose: 10 ml Terazosin HCl (Terazosin 2 Mg Capsule) 10 mg PO QPM [facility] Last Admin: 02/18/24 20:55 Dose: 10 mg Finasteride [Proscar] 5 mg PO QPM 02/07/23 Fluticasone/Vilanterol [Breo Ellipta 100-25 Mcg Inhalr] 1 puffs INH DAILY 02/07/23 Terazosin [Hytrin] 10 mg PO DAILY 02/07/23 Aspirin [Rae] 650 mg PO BID 02/18/24 Atorvastatin Calcium 40 mg PO QPM 02/18/24 Vit A/Vit C/D3/Zinc/Herbal 331 [Alive Immune Health Softgel] 1 cap PO DAILY 02/18/24 Objective - Vital Signs/Intake & Output Reviewed Vital Signs: Yes Vital Signs: Vital Signs x48h Temp Pulse Resp BP Pulse Ox 02/19/24 16:31 36.5 C 58 L 16 156/77 H 94 Intake & Output: Intake & Output 02/16/24 02/17/24 02/18/24 02/19/24 23:59 23:59 23:59 23:59 Intake Total 3700.00 3253.333 Output Total 2500 Balance 3700.00 753.333 - Objective General Appearance: positive: No acute distress, Alert, Other ( Fatigued appearing elderly gentleman. But oriented to person, place, time and situation. Jokes that he is continue to avoid his granddaughter) Eyes Bilateral: positive: PERRL, EOMI ENT: positive: Other ( will congested tone of voice with mild rhinorrhea) Respiratory: positive: No respiratory distress, Wheezes ( faint wheezing left midlung and left lower lung but no egophony). negative: Rales, Rhonchi Cardiovascular: positive: Regular rate & rhythm Abdomen: positive: Non-tender, No organomegaly, Nml bowel sounds, No distention Skin: positive: Warm, Dry Extremities: positive: No pedal edema Neurologic/Psychiatric: positive: Oriented x3, CN's nml (2-12), Motor nml, Sensation nml - Lab Results Fish Bones: 02/19/24 05:42 02/19/24 05:42 Other Labs: Lab Results x24hrs 02/19/24 02/19/24 Range/Units 05:42 05:42 WBC 9.6 (4.8-10.8) x10^3/uL RBC 4.30 L (4.70-6.10) 10^6/uL Hgb 12.5 L (14.0-18.0) g/dL Hct 39.4 L (42.0-52.0) % MCV 91.6 (80.0-94.0) fL MCH 29.1 (27.0-31.0) pg MCHC 31.7 L (32.0-36.0) g/dL RDW 13.9 (12.0-15.0) % Plt Count 259 (130-450) 10^3/uL MPV 9.7 (7.4-11.4) fL Neut # (Auto) Not Reportable Lymph # (Auto) Not Reportable [place] # (Auto) Not Reportable Eos # (Auto) Not Reportable Baso # (Auto) Not Reportable Absolute Nucleated RBC Not Reportable Total Counted 100 Band Neuts % (Manual) 1 (0 - 10) % Abnorm Lymph % (Manual) 0 % Nucleated RBC % Not Reportable Neutrophils # (Manual) 7.9 H (1.5-6.6) 10^3/uL Lymphocytes # (Manual) 1.0 L (1.5-3.5) 10^3/uL Monocytes # (Manual) 0.8 (0.0-1.0) 10^3/uL Eosinophils # (Manual) 0.0 (0-0.7) 10^3/uL Basophils # (Manual) 0.0 (0-0.1) 10^3/uL Differential Comment MANUAL DIFFERENTIAL Platelet Estimate NORMAL (130-450,000) (NORMAL) RBC Morph Micro Appear NORMAL APPEARANCE (NORMAL) Sodium 138 (135-145) mmol/L Potassium 3.9 (3.5-4.5) mmol/L Chloride 110 (101-111) mmol/L Carbon Dioxide 21 (21-32) mmol/L Anion Gap 7.0 (6-13) BUN 13 (6-20) mg/dL Creatinine 0.5 L (0.6-1.3) mg/dL Estimated GFR (MDRD) 163 (>89) Glucose 136 H (74-104) mg/dL Calcium 8.4 L (8.5-10.3) mg/dL TSH 0.42 (0.34-5.60) uIU/mL ABX Reporting Has patient been on IV antibiotics over the past 48 hours?: Yes Assessment/Plan - Problem List (1) COPD exacerbation Impression: his main presentation was that of shortness of breath and weakness. But he is not hypoxic. I do hear faint wheezing. But he is not in severe respiratory distress. If it was not for his orthostatic hypotension I will be discharging him home today. I will continue steroids, nebs, antibiotics (2) COVID-19 Impression: not a candidate for treatment this far out. But he is on steroids for his COPD. He was having explosive and frequent diarrhea at home. None while here. (3) Pneumonia Impression: Patient empiric antibiotic therapy for left lower lung pneumonia. It is not the groundglass or diffuse appearance of COVID-pneumonia. He is on Levaquin day number#2. Qualifiers: Pneumonia type: due to unspecified organism Laterality: left Lung l ocation: lower lobe of lung Qualified Code(s): J18.9 - Pneumonia, unspecified organism (4) Syncope Impression: He describes several episodes of syncope the day before admission and on the day of admission. That is what finally made his son bring him in. He will try and get up and make it to the bathroom before he had diarrhea and then make it and pass out before he got there. I am impressed that he let himself passed out 3 times before he finally came to the hospital. He has been hydrated. But in spite of that he is still with orthostatic changes. Plan: 500 cc fluid bolus and continue to try and work with PT. If his orthostasis improves and he does not have diarrhea I will hopefully discharge him tomorrow Qualifiers: Syncope type: unspecified Qualified Code(s): R55 - Syncope and collapse
[2024-02-19] MEDS: ATORVASTATIN 40 MG TABLET PO SCH (20:55)
[2024-02-20] MEDS: SODIUM CHLORIDE FLUSH 0.9% 10 ML SYRINGE IVP PRN (00:29)
--- NOTE | 2024-02-20 05:29 | PROVIDER PROGRESS NOTE ---
Passenger Flagman Note - Passenger Flagman Note Passenger Flagman Note: RN paged "Pt admitted for Covid Pneumonia & Hypoxia. Pt had multiple falls at home prior to admission, latest progress note states that pt stated he was passing out because he was having diarrhea at home. Pt was still orthostatic & not discharged yesterday d/t this. RN/REPEAT PHOTOCOMPOSING MACHINE OPERATOR went in room to check pt and pt states that he stood up to void & "woke up & part of him was under the bed." Pt is back in bed when nursing staff enter room. VSS, Neuro assessment (-), pt found w/ abrasions to Right forehead/thigh/arm." summary, patient had unwitnessed fall. getting ct head. Suyapa Melton
--- NOTE | 2024-02-20 06:02 | PROVIDER PROGRESS NOTE ---
Auto Repair Shop Manager Note - Auto Repair Shop Manager Note Auto Repair Shop Manager Note: RN paged "Pt admitted for COVID Pneumonia & Hypoxia. Pt has Hx of BPH and has to straight cath at home. Pt has been straight cathed x2 this shift. Can we get an order for a benjamin? Pt is being straight cathed at least 2x's every shift" defer to day team for now, continue bladder scan and straight cath as needed Suyapa Chase DO Sound
[2024-02-20 06:06] LABS: BASOPHILS % (AUTO) 0.1 %; MEAN CORPUSCULAR VOLUME 90.9 fL (80.0-94.0)
[2024-02-20 06:11] LABS: CREATININE 0.5 mg/dL (0.6-1.3); HGB - HEMOGLOBIN 13.5 g/dL (14.0-18.0); LYMPHOCYTES % (AUTO) 11.7 %; MEAN CORPUSCULAR HEMOGLOBIN 29.9 pg (27.0-31.0); MEAN CORPUSCULAR HGB CONC 32.9 g/dL (32.0-36.0); MONOCYTES % (AUTO) 6.4 %; NEUTROPHILS % (AUTO) 78.2 %; PLT - PLATELET COUNT 306 10^3/uL (130-450); POTASSIUM 3.7 mmol/L (3.5-4.5); RED BLOOD COUNT 4.51 10^6/uL (4.70-6.10); RED CELL DISTRIBUTION WIDTH 13.9 % (12.0-15.0); WHITE BLOOD COUNT 11.1 x10^3/uL (4.8-10.8)
[2024-02-20 06:14] LABS: ABNORMAL LYMPHS % (MANUAL) 0 %
[2024-02-20 06:45] LABS: BAND NEUTROPHILS % (MANUAL) 4 %; DIFFERENTIAL COMMENT MANUAL DIFFERENTIAL; LYMPHOCYTES # (MANUAL) 1.2 10^3/uL (1.5-3.5); LYMPHOCYTES % (MANUAL) 11 %; MONOCYTES # (MANUAL) 0.7 10^3/uL (0.0-1.0); NEUTROPHILS # (MANUAL) 9.2 10^3/uL (1.5-6.6); PLATELET ESTIMATE, MANUAL NORMAL (130-450,000) (NORMAL); RBC MORPHOLOGY (MULTIPLE) NORMAL APPEARANCE (NORMAL)
--- NOTE | 2024-02-20 13:33 | CT Report ---
PROCEDURE: Head WO INDICATIONS: fall in the hospital. unwitnessed TECHNIQUE: Noncontrast 4.5 mm thick angled axial sections acquired from the foramen magnum to the vertex. For r adiation dose reduction, the following was used: automated exposure control, adjustment of mA and/or kV according to patient size. COMPARISON: None. FINDINGS: Image quality: Motion artifact is noted. CSF spaces: Basal cisterns are patent. No extra-axial fluid collections. Ventricles are normal in size and shape. Brain: No midline shift. No intracranial masses or hemorrhage. Whiting-white matter interface is norm al. Skull and face: Calvarium and visualized facial bones are intact, without suspicious lesions. Sinuses: Moderate mucosal thickening can be seen involving the paranasal sinuses, with air-fluid leve ls seen within the maxillary sinuses. No significant abnormal fluid can be seen within the mastoid ai r cells. IMPRESSION: No intracranial hemorrhage is seen. No acute intracranial pathology. Reviewed by: Keyon Mcfarland MD on 02/20/2024 12:32 PM AKDT Approved by: Keyon Mcfarland MD on 02/20/2024 12:32 PM AKDT Station ID: [id number]
--- NOTE | 2024-02-20 17:49 | PROVIDER PROGRESS NOTE ---
Subjective - Prog Note Date Prog Note Date: 02/20/24 Prog Note Time: 17:47 - Subjective Pt reports feeling: Improved Subjective: Mr. Huizar presented to the ED for weakness, progressive SOB and cough on 02/17. EMS reported hypotension in the field which resolved with a 500cc bolus. He reports having diarrhea the day of admission and family report he had a near syncople episode. He was seen at the ED on 12/26/23, dx with pneumonia and treated with azithromycin and Augmentin. He states the way he feels now are very similar to how he felt with the pneumonia. He was seen outpatient earlier today and started on azithromycin, no tests or studies were done. He has a hx of COPD, BPH, and hypothyroid and is a current smoker. In the ED he tested positive for COVID-19, chest x-ray found resolving infiltrate LLL. He became hypoxemic with ambulation, with O2 sats dropping from 92% to 89%. His BNP was 50 and he has no signs of volume overload, ruling out HF. He was admitted for COPD exacerbation with pneumonia and COVID-19 and hypotension. He is receiving Levaquin for the pneumonia. His COPD is being managed with formoterol 20 mcg BID, budesonide 0.5 mg BID, guaifenasin 10 ml PO, and methylprednisone 40 mg QD. He received 2 L NS on 02/17 and 2.5l NS on 02/18 and is on PO fluids today. His BP remains labile and he had hypotension this morning with positive orthostatics. He reports feeling overall improved. He denies chest pain, SOB, headache, n/v, abdominal pain, or diarrhea today. He states he often gets dizzy wehn he stands so he stands up slowly. He has not had any recent changes in home meds. His BP remains labile with orthostatic hypotension. This morning, he had a syncople episode getting to use the restroom, states he woke up on the floor fdc under the bed, got back into bed and then called the nurse. He has an abrasion right christianity, contusion right upper arm and abrasion right elbow. CT head was negative for ICH, and he has no acute neurologic symtpoms. A benjamin has been placed and he is being observed for recurrent hypotesnon or recurrent orthostatic vs. Current Medications - Current Medications Current Medications: Active Medications Acetaminophen (Acetaminophen 325 Mg Tablet) 650 mg PO Q4HR PRN PRN Reason: Pain 1 to 4, or Fever Last Admin: 02/19/24 00:44 Dose: 650 mg Aspirin (Aspirin 325 Mg Tablet) 650 mg PO BID [facility] Last Admin: 02/20/24 08:39 Dose: 650 mg Atorvastatin Calcium (Atorvastatin 40 Mg Tablet) 40 mg PO QPM [facility] Last Admin: 02/19/24 20:55 Dose: 40 mg Budesonide (Budesonide 0.5 Mg/2 Ml Neb) 0.5 mg INH RTBID [facility] Last Admin: 02/20/24 06:11 Dose: 0.5 mg Cholecalciferol (Cholecalciferol 25 Mcg Tablet) 25 mcg PO DAILY [facility] Last Admin: 02/20/24 08:40 Dose: 25 mcg Enoxaparin Sodium (Enoxaparin 40 Mg/0.4 Ml Syringe) 40 mg SUBQ DAILY [facility] Last Admin: 02/20/24 08:40 Dose: 40 mg Finasteride (Finasteride 5 Mg Tablet) 5 mg PO DAILY [facility] Last Admin: 02/20/24 08:40 Dose: 5 mg Formoterol Fumarate (Formoterol Fumarate Neb 20 Mcg/2 Ml) 20 mcg INH RTBID [facility] Last Admin: 02/20/24 06:11 Dose: 20 mcg Guaifenesin (Guaifenesin/Dextromethorphan 10 Ml Udc) 10 ml PO Q6HR PRN PRN Reason: Cough Last Admin: 02/19/24 00:45 Dose: 10 ml Levofloxacin (Levaquin 750 Mg/150 Ml) 750 mg in 150 mls @ 100 mls/hr IV Q24H [facility] Stop: 02/22/24 04:29 Last Infusion: 02/20/24 04:55 Dose: Infused Levothyroxine Sodium (Levothyroxine 75 Mcg Tablet) 75 mcg PO QDAC [facility] Last Admin: 02/20/24 06:52 Dose: 75 mcg Lidocaine (Lidocaine Patch 5%) 1 patch TOP DAILY PRN PRN Reason: Moderate Pain (Level 4-6) Methylprednisolone (Methylprednisolone Succinate 40 Mg/Ml Vial) 40 mg IVP DAILY [facility] Last Admin: 02/20/24 08:40 Dose: 40 mg Ondansetron HCl (Ondansetron Odt 4 Mg Tablet) 4 mg TL Q6HR PRN PRN Reason: Nausea / Vomiting Ondansetron HCl (Ondansetron 4 Mg/2 Ml Vial) 4 mg IVP Q6HR PRN PRN Reason: Nausea / Vomiting Saccharomyces Boulardii (Saccharomyces Boulardii 250 Mg Capsule) 250 mg PO BIDWM [facility] Last Admin: 02/20/24 16:54 Dose: 250 mg Sodium Chloride (Sodium Chloride Flush 0.9% 10 Ml Syringe) 10 ml IVP PRN PRN PRN Reason: NEEDED PER PROVIDER ORDERS Last Admin: 02/20/24 03:26 Dose: 10 ml Sodium Chloride (Sodium Chloride Flush 0.9% 10 Ml Syringe) 10 ml IVP 0100,0900,1700 [facility] Last Admin: 02/20/24 16:54 Dose: 10 ml Terazosin HCl (Terazosin 2 Mg Capsule) 10 mg PO QPM [facility] Last Admin: 02/19/24 20:55 Dose: 10 mg Finasteride [Proscar] 5 mg PO QPM 02/07/23 Fluticasone/Vilanterol [Breo Ellipta 100-25 Mcg Inhalr] 1 puffs INH DAILY 02/07/23 Terazosin [Hytrin] 10 mg PO DAILY 02/07/23 Aspirin [Rae] 650 mg PO BID 02/18/24 Atorvastatin Calcium 40 mg PO QPM 02/18/24 Vit A/Vit C/D3/Zinc/Herbal 331 [Alive Immune Health Softgel] 1 cap PO DAILY 02/18/24 Objective - Vital Signs/Intake & Output Reviewed Vital Signs: Yes Vital Signs: Vital Signs - 24 hr 02/19/24 02/20/24 02/20/24 19:20 00:19 04:50 Temperature 36.5 C 36.4 C L Heart Rate 59 L Heart Rate [ 60 94 Brachial] Respiratory 18 18 20 Rate Blood Pressure 164/82 H 124/76 [Right Brachial artery] O2 Saturation 95 93 02/20/24 02/20/24 06:10 08:56 Temperature 36.5 C Heart Rate 81 Heart Rate [ 101 H Brachial] Respiratory 18 20 Rate Blood Pressure 82/59 L [Right Brachial artery] O2 Saturation 93 Oxygen O2 Source Room air Intake & Output: Intake & Output 02/17/24 02/18/24 02/19/24 02/20/24 23:59 23:59 23:59 23:59 Intake Total 3700.00 3703.333 640 Output Total 3700 2500 Balance 3700.00 3.333 -1860 - Objective General Appearance: positive: No acute distress, Alert, Other (abrasion right christianity, no crepitus or swelling noted) Eyes Bilateral: positive: Normal inspection, PERRL, EOMI ENT: positive: No signs of dehydration Neck: positive: Nml inspection (No midline pain or tenderness, normal ROM), No JVD, Trachea midline Respiratory: positive: No respiratory distress, Rales (Bilateral bases) Cardiovascular: positive: No murmur, No gallop, Irregularly irregular Peripheral Pulses: 2+ Radial (R), 2+ Radial (L), 2+ Dorsalis pedis (R), 2+ Dorsalis pedis (L) Abdomen: positive: Non-tender, No organomegaly, Nml bowel sounds, No distention. negative: Guarding, Rebound, Hepatomegaly, Splenomegaly Back: positive: Nml inspection (No modline tenderness) Skin: positive: Color nml, No rash, Warm, Dry, Other (Hemocideran staining bilateral lower extremities, serous blister left lateral [place] without tenderness or erythema) Extremities: positive: Non-tender, Nml appearance, No pedal edema, Other (Abrasion with contusion right upper arm, abrasion right elbow) Neurologic/Psychiatric: positive: Oriented x3, CN's nml (2-12), Motor nml, S ensation nml, Mood/affect nml - Lab Results Fish Bones: 02/20/24 05:38 02/20/24 05:38 Other Labs: Lab Results x24hrs 02/20/24 02/20/24 Range/Units 05:38 05:38 WBC 11.1 H (4.8-10.8) x10^3/uL RBC 4.51 L (4.70-6.10) 10^6/uL Hgb 13.5 L (14.0-18.0) g/dL Hct 41.0 L (42.0-52.0) % MCV 90.9 (80.0-94.0) fL MCH 29.9 (27.0-31.0) pg MCHC 32.9 (32.0-36.0) g/dL RDW 13.9 (12.0-15.0) % Plt Count 306 (130-450) 10^3/uL MPV 10.0 (7.4-11.4) fL Neut # (Auto) Not Reportable Lymph # (Auto) Not Reportable [place] # (Auto) Not Reportable Eos # (Auto) Not Reportable Baso # (Auto) Not Reportable Absolute Nucleated RBC Not Reportable Total Counted 100 Band Neuts % (Manual) 4 (0 - 10) % Abnorm Lymph % (Manual) 0 % Nucleated RBC % Not Reportable Neutrophils # (Manual) 9.2 H (1.5-6.6) 10^3/uL Lymphocytes # (Manual) 1.2 L (1.5-3.5) 10^3/uL Monocytes # (Manual) 0.7 (0.0-1.0) 10^3/uL Eosinophils # (Manual) 0.0 (0-0.7) 10^3/uL Basophils # (Manual) 0.0 (0-0.1) 10^3/uL Differential Comment MANUAL DIFFERENTIAL Platelet Estimate NORMAL (130-450,000) (NORMAL) RBC Morph Micro Appear NORMAL APPEARANCE (NORMAL) Sodium 137 (135-145) mmol/L Potassium 3.7 (3.5-4.5) mmol/L Chloride 106 (101-111) mmol/L Carbon Dioxide 22 (21-32) mmol/L Anion Gap 9.0 (6-13) BUN 14 (6-20) mg/dL Creatinine 0.5 L (0.6-1.3) mg/dL Estimated GFR (MDRD) 163 (>89) Glucose 107 H (74-104) mg/dL Calcium 9.0 (8.5-10.3) mg/dL ABX Reporting Has patient been on IV antibiotics over the past 48 hours?: Yes Sepsis Event Note (H) - Evaluation Current Stage of Sepsis: Ruled out Assessment/Plan - Problem List (1) Syncope Impression: Mr. Huizar had a syncople episode at early this morning when he was getting up to use the restroom. He states he woke up on the floor partially under the bed, climbed back into bed, and then called the nurse. He has an abrasion to his right christianity, contusion to his right upper arm, and abrasion to his right elbow. A head CT was negative, he has no acute neurologic findings, and he no complaints of headache, neck/back pain, or pain in the extremities and was able to climb back into bed unassisted. He was hypotensive at 08:56 with a supine BP of 82/59 and HR of 101 which dropped to 71/43 with standing and in HR to 68. His BP has since rebounded with the last BP of 141/84 and HR of 67. ECHO done yesterday shows normal ejection fraction of 55 %, normal heart pressures and no valvular disease. During assesment he had an irregularly irregular HR with no hx of such. I will obtain a 12-lead ECG and place him on tele. It is possible that paroxysmal a-fib could be underlying his syncope and labile BP. I will order a 500 cc bolus and salt tablets. Qualifiers: Syncope type: unspecified Qualified Code(s): R55 - Syncope and collapse (2) Pneumonia Impression: Cough, progressive SOB with weakness and dyspnea on exertion. Recent pneumonia treated with azithromycin and augmentin 12/25. Chest x-ray shows LLL infiltrate, was started on azithromycin this morning outpatient and started on levaquin IV in the ED. His O2 sats are stable on RA. Today he feels improved. I will continue his levaquin IV and switch him to PO if he is able to discharge before the course is complete. Qualifiers: Pneumonia type: due to unspecified organism Laterality: left Lung location: lower lobe of lung Qualified Code(s): J18.9 - Pneumonia, unspecified organism (3) COVID-19 Impression: Tested positive for COVID-19 in the ED. Placed on respiratory precautions. (4) COPD exacerbation Impression: See management of pneumonia (5) Hypothyroidism Impression: Hx of hypothyroid. I will continue home levothyroxine 75 mcg PO. TSH was 0.42 on 02/18. Qualifiers: Hypothyroidism type: acquired Qualified Code(s): E03.9 - Hypothyroidism, unspecified
[2024-02-20] MEDS: SODIUM CHLORIDE 0.9% 500 ML IV ONE (19:13)
[2024-02-20] MEDS ORDERED: AMIODARONE 150 MG/3 ML VIAL IVP STA (22:23)
--- NOTE | 2024-02-20 22:24 | PROVIDER PROGRESS NOTE ---
Engine Lathe Set Up Operator Note - Engine Lathe Set Up Operator Note Engine Lathe Set Up Operator Note: RN paged "Patient was placed on Telemetry by daytime hospitalist. Patient is having frequent PVCs and is having runs of ventricular rhythms. Patient is asymptomatic. Electrolytes appear normal but there hasn't been any mag levels drawn" mag level ordered amiodarone 150mg iv once. Suyapa Melton
[2024-02-20] MEDS: AMIODARONE 150 MG/100 ML 100 ML IV ONE (22:55)
--- NOTE | 2024-02-21 00:13 | PROVIDER PROGRESS NOTE ---
Emergency Room Clinician Note - Emergency Room Clinician Note Emergency Room Clinician Note: RN paged "telemetry: frequent PVC's. completed amiodarone gtt. mag level: 1.6 how would you like to proceed? please input any new orders, thank you so much!" and "telemetry: ventricular rhythm converted to Afib at 66 HR. @ 0000 converted back into ventricular rhythm. FYI, thank you!" mag 1.6 noted and will replete with 2g Mag. regarding "ventricular rhythm" unclear if truly ventricular meaning v tach/ fib vs PVCs vs sinus c aberrancy. reviewed prior EKG and noted there were pvcs but also sinus c intraventricular conduction abnormality leading to marginal widening QRS noted on EKG as 103ms. Noted rhythm strips with widening QRS as well and labels of "v". suspect RN interpreting rhythm strips as patient having "ventricular rhythm". suspect rhythms strip to be highly inaccurate and that patient is having sinus with freq PVCs, similar to previous EKG. will get EKG now to support hypothesis that patient is in sinus c freq PVC. Suyapa Chase DO [employer]
[2024-02-21] MEDS: MAGNESIUM SULFATE 2 GRAM 2 GM/50 ML BAG IV ONE (00:20)
[2024-02-21 05:31] LABS: BASOPHILS % (AUTO) 0.2 %; HCT - HEMATOCRIT 42.1 % (42.0-52.0); HGB - HEMOGLOBIN 13.6 g/dL (14.0-18.0); LYMPHOCYTES # (AUTO) 1.7 10^3/uL (1.5-3.5); MEAN CORPUSCULAR HEMOGLOBIN 29.5 pg (27.0-31.0); MEAN CORPUSCULAR HGB CONC 32.3 g/dL (32.0-36.0); MEAN CORPUSCULAR VOLUME 91.3 fL (80.0-94.0); MEAN PLATELET VOLUME 9.8 fL (7.4-11.4); MONOCYTES # (AUTO) 0.5 10^3/uL (0.0-1.0); MONOCYTES % (AUTO) 4.9 %; NEUTROPHILS # (AUTO) 7.8 10^3/uL (1.5-6.6); NEUTROPHILS % (AUTO) 74.8 %; PLT - PLATELET COUNT 314 10^3/uL (130-450); RED BLOOD COUNT 4.61 10^6/uL (4.70-6.10); RED CELL DISTRIBUTION WIDTH 13.6 % (12.0-15.0); WHITE BLOOD COUNT 10.4 x10^3/uL (4.8-10.8)
[2024-02-21 05:48] LABS: CALCIUM 8.6 mg/dL (8.5-10.3); CREATININE 0.5 mg/dL (0.6-1.3); POTASSIUM 3.5 mmol/L (3.5-4.5)
[2024-02-21] MEDS: SODIUM CHLORIDE 1 GM TABLET PO SCH (08:11)
[2024-02-21] MEDS: SODIUM CHLORIDE 0.9% 500 ML IV ONE (17:36)
--- NOTE | 2024-02-21 17:49 | PROVIDER PROGRESS NOTE ---
Subjective - Prog Note Date Prog Note Date: 02/21/24 Prog Note Time: 17:47 - Subjective Pt reports feeling: No change Subjective: Mr. Huizar presented to the ED for weakness, progressive SOB and cough on 02/17. EMS reported hypotension in the field which resolved with a 500cc bolus. He reports having diarrhea the day of admission and family report he had a near syncople episode. He was seen at the ED on 12/26/23, dx with pneumonia and treated with azithromycin and Augmentin. He states the way he feels now are very similar to how he felt with the pneumonia. He was seen outpatient earlier today and started on azithromycin, no tests or studies were done. He has a hx of COPD, BPH, and hypothyroid and is a current smoker. In the ED he tested positive for COVID-19, chest x-ray found resolving infiltrate LLL. He became hypoxemic with ambulation, with O2 sats dropping from 92% to 89%. His BNP was 50 and he has no signs of volume overload, ruling out HF. He was admitted for COPD exacerbation with pneumonia and COVID-19 and hypotension. He is receiving Levaquin for the pneumonia. His COPD is being managed with formoterol 20 mcg BID, budesonide 0.5 mg BID, guaifenasin 10 ml PO, and methylprednisone 40 mg QD. He received 2 L NS on 02/17 and 2.5l NS on 02/18 and is on PO fluids today. His BP remains labile and he had hypotension this morning with positive orthostatics. He reports feeling overall improved. He denies chest pain, SOB, headache, n/v, abdominal pain, or diarrhea today. He states he often gets dizzy wehn he stands so he stands up slowly. He has not had any recent changes in home meds. His BP remains labile with orthostatic hypotension. This morning, he had a syncople episode getting to use the restroom, states he woke up on the floor residential under the bed, got back into bed and then called the nurse. He has an abrasion right samaritan, contusion right upper arm and abrasion right elbow. CT head was n egative for ICH, and he has no acute neurologic symtpoms. A benjamin has been placed and he is unable to ambulate without dizziness. Tele monitoring last night demonstrated new onset a-fib not previously documented, onset unknown but dizziness has been present for past 3 months. He also had at least one episode of an accelerated idioventricular rhythm and some strips with sinus rhythm. We started him on metoprolol and eliquis. Rechecked orthostatics show he was still orthostatic in the morning. He denies any headache, chest pain, sob, nausea, vomiting, or abdominal pain. Current Medications - Current Medications Current Medications: Active Medications Generic Name Dose Route Start Last Admin Trade Name Freq PRN Reason Stop Dose Admin Acetaminophen 650 mg 02/18/24 02:40 02/19/24 00:44 Acetaminophen 325 Mg Tablet PO 650 mg Q4HR PRN Administration Pain 1 to 4, or Fever Apixaban 5 mg 02/21/24 21:00 Apixaban 5 Mg Tablet PO BID DRISS Atorvastatin Calcium 40 mg 02/19/24 21:00 02/20/24 20:14 Atorvastatin 40 Mg Tablet PO 40 mg QPM DRISS Administration Budesonide 0.5 mg 02/18/24 07:00 02/21/24 06:10 Budesonide 0.5 Mg/2 Ml Neb INH 0.5 mg RTBID DRISS Administration Cholecalciferol 25 mcg 02/18/24 09:00 02/21/24 08:11 Cholecalciferol 25 Mcg Tablet PO 25 mcg DAILY DRISS Administration Finasteride 5 mg 02/18/24 09:00 02/21/24 08:11 Finasteride 5 Mg Tablet PO 5 mg DAILY DRISS Administration Formoterol Fumarate 20 mcg 02/18/24 07:00 02/21/24 06:10 Formoterol Fumarate Neb 20 Mcg/2 Ml INH 20 mcg RTBID DRISS Administration Guaifenesin 10 ml 02/18/24 03:31 02/19/24 00:45 Guaifenesin/Dextromethorphan 10 Ml Udc PO 10 ml Q6HR PRN Administration Cough Levofloxacin 750 mg in 150 mls @ 100 mls/hr 02/18/24 03:00 02/21/24 03:54 Levaquin 750 Mg/150 Ml IV 02/22/24 04:29 100 mls/hr Q24H DRISS Administration Levothyroxine Sodium 75 mcg 02/18/24 07:00 02/21/24 05:42 Levothyroxine 75 Mcg Tablet PO 75 mcg QDAC DRISS Administration Lidocaine 1 patch 02/19/24 01:00 Lidocaine Patch 5% TOP DAILY PRN Moderate Pain (Level 4-6) Methylprednisolone 40 mg 02/18/24 03:00 02/21/24 08:12 Methylprednisolone Succinate 40 Mg/Ml Vial IVP 40 mg DAILY DRISS Administration Metoprolol Tartrate 25 mg 02/21/24 21:00 Metoprolol Tartrate 25 Mg Tablet PO BID DRISS Ondansetron HCl 4 mg 02/18/24 02:40 Ondansetron Odt 4 Mg Tablet TL Q6HR PRN Nausea / Vomiting Ondansetron HCl 4 mg 02/18/24 02:40 Ondansetron 4 Mg/2 Ml Vial IVP Q6HR PRN Nausea / Vomiting Saccharomyces Boulardii 250 mg 02/18/24 08:00 02/21/24 17:08 Saccharomyces Boulardii 250 Mg Capsule PO 250 mg BIDWM DRISS Administration Sodium Chloride 10 ml 02/18/24 02:40 02/20/24 03:26 Sodium Chloride Flush 0.9% 10 Ml Syringe IVP 10 ml PRN PRN Administration NEEDED PER PROVIDER ORDERS Sodium Chloride 10 ml 02/18/24 09:00 02/21/24 17:08 Sodium Chloride Flush 0.9% 10 Ml Syringe IVP 10 ml 0100,0900,1700 DRISS Administration Sodium Chloride 1 gm 02/21/24 09:00 02/21/24 08:11 Sodium Chloride 1 Gm Tablet PO 1 gm DAILY DRISS Administration Terazosin HCl 10 mg 02/18/24 21:00 02/20/24 20:13 Terazosin 2 Mg Capsule PO 10 mg QPM DRISS Administration Finasteride [Proscar] 5 mg PO QPM 02/07/23 Fluticasone/Vilanterol [Breo Ellipta 100-25 Mcg Inhalr] 1 puffs INH DAILY 02/07/23 Terazosin [Hytrin] 10 mg PO DAILY 02/07/23 Aspirin [Rae] 650 mg PO BID 02/18/24 Atorvastatin Calcium 40 mg PO QPM 02/18/24 Vit A/Vit C/D3/Zinc/Herbal 331 [Alive Immune Health Softgel] 1 cap PO DAILY 02/18/24 Objective - Vital Signs/Intake & Output Reviewed Vital Signs: Yes Vital Signs: Vital Signs x48h Temp Pulse Resp BP BP Pulse Ox 02/21/24 16:00 36.1 C L 70 20 155/91 H 96 02/21/24 12:38 36.0 C L 81 18 120/72 94 Intake & Output: Intake & Output 02/18/24 02/19/24 02/20/24 02/21/24 23:59 23:59 23:59 23:59 Intake Total 3700.00 3703.333 2230 1350 Output Total 3700 3500 2350 Balance 3700.00 3.618 -1980 1000 - Objective General Appearance: positive: No acute distress, Alert Eyes Bilateral: positive: Normal inspection, PERRL Neck: positive: No JVD Respiratory: positive: Chest non-tender, No respiratory distress, Rales (light rales L base.). negative: Wheezes, Rhonchi Cardiovascular: positive: No gallop, Irregularly irregular, Systolic murmur Abdomen: positive: Non-tender, No organomegaly, Nml bowel sounds, No distention. negative: Guarding, Rebound Back: positive: Nml inspection Skin: positive: Color nml, No rash, Warm, Dry, Other (Abrasion right samaritan, contusion right upper arm, and abrasion right elbow) Extremities: positive: Nml appearance, No pedal edema Neurologic/Psychiatric: positive: Oriented x3, CN's nml (2-12), Motor nml, Sensation nml, Mood/affect nml - Lab Results Fish Bones: 02/21/24 05:24 02/21/24 05:24 Other Labs: Lab Results x24hrs 02/21/24 02/21/24 02/20/24 Range/Units 05:24 05:24 23:01 WBC 10.4 (4.8-10.8) x10^3/uL RBC 4.61 L (4.70-6.10) 10^6/uL Hgb 13.6 L (14.0-18.0) g/dL Hct 42.1 (42.0-52.0) % MCV 91.3 (80.0-94.0) fL MCH 29.5 (27.0-31.0) pg MCHC 32.3 (32.0-36.0) g/dL RDW 13.6 (12.0-15.0) % Plt Count 314 (130-450) 10^3/uL MPV 9.8 (7.4-11.4) fL Neut # (Auto) 7.8 H (1.5-6.6) 10^3/uL Lymph # (Auto) 1.7 (1.5-3.5) 10^3/uL [place] # (Auto) 0.5 (0.0-1.0) 10^3/uL Eos # (Auto) 0.0 (0.0-0.7) 10^3/uL Baso # (Auto) 0.0 (0.0-0.1) 10^3/uL Absolute Nucleated RBC 0.00 x10^3/uL Nucleated RBC % 0.0 /100WBC Sodium 138 (135-145) mmol/L Potassium 3.5 (3.5-4.5) mmol/L Chloride 104 (101-111) mmol/L Carbon Dioxide 28 (21-32) mmol/L Anion Gap 6.0 (6-13) BUN 11 (6-20) mg/dL Creatinine 0.5 L (0.6-1.3) mg/dL Estimated GFR (MDRD) 163 (>89) Glucose 143 H (74-104) mg/dL Calcium 8.6 (8.5-10.3) mg/dL Magnesium 1.6 L (1.7-2.3) mg/dL - Diagnostic Imaging Diagnostic Imaging Results: positive: Final report reviewed Diagnostic Imaging Comments: ECHO: EF 50-55%, atria not well visualized, trace MR and mild TR, right ventricular pressure slightly elevated. ABX Reporting Has patient been on IV antibiotics over the past 48 hours?: Yes Sepsis Event Note (H) - Evaluation Current Stage of Sepsis: Ruled out Assessment/Plan - Problem List (1) Syncope Impression: Mr. Huizar had a syncople episode yesterday morning when he was getting up to use the restroom. He states he woke up on the floor partially under the bed, climbed back into bed, and then called the nurse. He had an abrasion to his right samaritan, contusion to his right upper arm, and abrasion to his right elbow. A head CT was negative, he has no acute neurologic findings or complaints of pain. He was hypotensive at 08:56 with a supine BP of 82/59 and HR of 101 which dropped to 71/43 with standing and in HR to 68. He was orthostatic again this morning, no further syncople episodes. He has not been up and out of bed due to dizziness today. His telemetry shows primarily a-fib, with at least one accelerated indioventricular rhythm some periods of sinus rhythm with ventricular ectopy. He has no complaints of chest pain, palpitations, or sob. He has no hx of a-fib and is not anticoagulated but is on daily ASA. I placed him on metoprolol 25 mg PO BID, started him on eliquis 5 mg PO BID, and stopped his aspirin and lovenox. I discussed with him the risks of bleeding from the eliquis, especially as it relates to a head injury from a fall, versus the risk of stroke related to a CVA. He verbalized understanding and was agreeable with the plan. I will continue him on tele and recheck orthostatics this evening to see if they are present outside of the morning. Qualifiers: Syncope type: unspecified Qualified Code(s): R55 - Syncope and collapse (2) Atrial fibrillation, new onset Impression: See discussion for syncope. I started him on metoprolol 25 mg BID and eliquis 5 mg BID. He will need to follow-up with cardiology outpatient. (3) Pneumonia Impression: Cough, progressive SOB with weakness and dyspnea on exertion. Recent pneumonia treated with azithromycin and augmentin 12/25. Chest x-ray shows LLL infiltrate, was started on azithromycin this morning outpatient and started on levaquin IV in the ED. His O2 sats are stable on RA. Today he feels improved and reports minimal coughing. I will continue his levaquin IV and switch him to PO if he is able to discharge before the course is complete. Qualifiers: Pneumonia type: due to unspecified organism Laterality: left Lung locat ion: lower lobe of lung Qualified Code(s): J18.9 - Pneumonia, unspecified organism (4) COVID-19 Impression: Tested positive for COVID-19 in the ED. Placed on respiratory precautions. (5) COPD exacerbation Impression: See management of pneumonia, continued on budesonide and fomoterol and will restart home breo on discharge. Currently on methylprednisone 40 mg IV QD. (6) Hypothyroidism Impression: Hx of hypothyroid. I will continue home levothyroxine 75 mcg PO. TSH was 0.42 on 7/31. Qualifiers: Hypothyroidism type: acquired Qualified Code(s): E03.9 - Hypothyroidism, unspecified
[2024-02-21] MEDS: APIXABAN 5 MG TABLET PO SCH (21:02)
[2024-02-21] MEDS: METOPROLOL TARTRATE 25 MG TABLET PO SCH (21:03)
[2024-02-22 05:36] LABS: BASOPHILS % (AUTO) 0.2 %; HCT - HEMATOCRIT 40.6 % (42.0-52.0); HGB - HEMOGLOBIN 13.4 g/dL (14.0-18.0); LYMPHOCYTES % (AUTO) 15.4 %; MEAN CORPUSCULAR HEMOGLOBIN 29.8 pg (27.0-31.0); MEAN CORPUSCULAR VOLUME 90.4 fL (80.0-94.0); MEAN PLATELET VOLUME 9.8 fL (7.4-11.4); MONOCYTES # (AUTO) 0.7 10^3/uL (0.0-1.0); MONOCYTES % (AUTO) 5.2 %; NEUTROPHILS # (AUTO) 9.6 10^3/uL (1.5-6.6); NEUTROPHILS % (AUTO) 74.2 %; PLT - PLATELET COUNT 314 10^3/uL (130-450); RED BLOOD COUNT 4.49 10^6/uL (4.70-6.10); RED CELL DISTRIBUTION WIDTH 13.7 % (12.0-15.0); WHITE BLOOD COUNT 12.9 x10^3/uL (4.8-10.8)
[2024-02-22 05:58] LABS: CALCIUM 8.5 mg/dL (8.5-10.3); CREATININE 0.4 mg/dL (0.6-1.3); POTASSIUM 3.9 mmol/L (3.5-4.5)
[2024-02-22 06:17] LABS: SLIDE REVIEW? Indicated
[2024-02-22 06:21] LABS: PLATELET MORPHOLOGY NORMAL APPEARANCE (NORMAL)
[2024-02-22 06:22] LABS: PLATELET ESTIMATE, MANUAL NORMAL (130-450,000) (NORMAL)
--- NOTE | 2024-02-22 11:32 | PROVIDER PROGRESS NOTE ---
Subjective - Prog Note Date Prog Note Date: 02/22/24 Prog Note Time: 11:04 - Subjective Pt reports feeling: No change Subjective: Mr. Huizar presented to the ED for weakness, progressive SOB and cough on 02/17. EMS reported hypotension in the field which resolved with a 500cc bolus. He reports having diarrhea the day of admission and family report he had a near syncople episode. He was seen at the ED on 12/26/23, dx with pneumonia and treated with azithromycin and Augmentin. He states the way he feels now are very similar to how he felt with the pneumonia. He was seen outpatient earlier today and started on azithromycin, no tests or studies were done. He has a hx of COPD, BPH, and hypothyroid and is a current smoker. In the ED he tested positive for COVID-19, chest x-ray found resolving infiltrate LLL. He became hypoxemic with ambulation, with O2 sats dropping from 92% to 89%. His BNP was 50 and he has no signs of volume overload, ruling out HF. He was admitted for COPD exacerbation with pneumonia and COVID-19 and hypotension. He completed 5 days Levaquin for the pneumonia today. His COPD is being managed with formoterol 20 mcg BID, budesonide 0.5 mg BID, guaifenasin 10 ml PO. He was on methylprednisone which was discontinued on today after 4 days on 40 mg IV . He received 2 L NS on 02/17 and 2.5l NS on 02/18, 500 cc NS on 02/19 and 02/20 due to persistent orthostatic vs. His BP remains labile and he was orthostatic again today. He is unable to tolerate prolonged sitting or standing. He reports feeling pretty good as long as he doesn't get up. He denies chest pain, SOB, headache, n/v, abdominal pain, or diarrhea today. He states he often gets dizzy when he stands so he stands up slowly. He has not had any recent changes in home meds. Two days ago, he had a syncople episode getting up to use the restroom, states he woke up on the floor fpc under the bed, got back into bed and then called the nurse. He has an abrasion right moravian, contusion right upper arm and abrasion right elbow. CT head was negative for ICH, and he has no acute neurologic symtpoms. A benjamin was placed and he is unable to am bulate without dizziness. He was noted to have an irregular HR on 02/19 and placed on tele. Tele monitoring demonstrates new onset a-fib not previously documented, onset unknown but dizziness has been present for past 3 months. He is not a good candidate for rhythm control as onset is unknown, possibly 3 mo ago or longer as he was asked a year ago if he had a-fib by an aid, and he was not anticoagulated previously. He also has episodes of accelerated idioventricular rhythm and some strips with sinus rhythm with PVCs. He was started him on metoprolol and eliquis last night. Metoprolol was held last night for bradycardia but given this am. As of this morning, he was still orthostatic, and unable to tolerate standing or sitting with his feet elevated. He had a single hypotensive BP today with a repeat BP normal, no associated symptoms. At this point, he cannot be safely discharged, especially now that he is anticoagulated, due to the risk of syncope and bleeding. I will consult cardiology at [facility] for consideration of pacemaker placement. Current Medications - Current Medications Current Medications: Active Medications Generic Name Dose Route Start Last Admin Trade Name Freq PRN Reason Stop Dose Admin Acetaminophen 650 mg 02/18/24 02:40 02/19/24 00:44 Acetaminophen 325 Mg Tablet PO 650 mg Q4HR PRN Administration Pain 1 to 4, or Fever Apixaban 5 mg 02/21/24 21:00 02/22/24 08:35 Apixaban 5 Mg Tablet PO 5 mg BID DRISS Administration Atorvastatin Calcium 40 mg 02/19/24 21:00 02/21/24 21:02 Atorvastatin 40 Mg Tablet PO 40 mg QPM DRISS Administration Budesonide 0.5 mg 02/18/24 07:00 02/22/24 07:07 Budesonide 0.5 Mg/2 Ml Neb INH 0.5 mg RTBID DRISS Administration Cholecalciferol 25 mcg 02/18/24 09:00 02/22/24 08:35 Cholecalciferol 25 Mcg Tablet PO 25 mcg DAILY DRISS Administration Finasteride 5 mg 02/18/24 09:00 02/22/24 08:35 Finasteride 5 Mg Tablet PO 5 mg DAILY DRISS Administration Formoterol Fumarate 20 mcg 02/18/24 07:00 02/22/24 07:06 Formoterol Fumarate Neb 20 Mcg/2 Ml INH 20 mcg RTBID DRISS Administration Guaifenesin 10 ml 02/18/24 03:31 02/19/24 00:45 Guaifenesin/Dextromethorphan 10 Ml Udc PO 10 ml Q6HR PRN Administration Cough Levothyroxine Sodium 75 mcg 02/18/24 07:00 02/22/24 06:01 Levothyroxine 75 Mcg Tablet PO 75 mcg QDAC DRISS Administration Lidocaine 1 patch 02/19/24 01:00 Lidocaine Patch 5% TOP DAILY PRN Moderate Pain (Level 4-6) Metoprolol Tartrate 25 mg 02/21/24 21:00 02/22/24 08:35 Metoprolol Tartrate 25 Mg Tablet PO 25 mg BID DRISS Administration Ondansetron HCl 4 mg 02/18/24 02:40 Ondansetron Odt 4 Mg Tablet TL Q6HR PRN Nausea / Vomiting Ondansetron HCl 4 mg 02/18/24 02:40 Ondansetron 4 Mg/2 Ml Vial IVP Q6HR PRN Nausea / Vomiting Saccharomyces Boulardii 250 mg 02/18/24 08:00 02/22/24 08:35 Saccharomyces Boulardii 250 Mg Capsule PO 250 mg BIDWM DRISS Administration Sodium Chloride 10 ml 02/18/24 02:40 02/20/24 03:26 Sodium Chloride Flush 0.9% 10 Ml Syringe IVP 10 ml PRN PRN Administration NEEDED PER PROVIDER ORDERS Sodium Chloride 10 ml 02/18/24 09:00 02/22/24 01:28 Sodium Chloride Flush 0.9% 10 Ml Syringe IVP 10 ml 0100,0900,1700 DRISS Administration Sodium Chloride 1 gm 02/21/24 09:00 02/22/24 08:35 Sodium Chloride 1 Gm Tablet PO 1 gm DAILY DRISS Administration Terazosin HCl 10 mg 02/18/24 21:00 02/21/24 21:01 Terazosin 2 Mg Capsule PO 10 mg QPM DRISS Administration Finasteride [Proscar] 5 mg PO QPM 02/07/23 Fluticasone/Vilanterol [Breo Ellipta 100-25 Mcg Inhalr] 1 puffs INH DAILY 02/07/23 Terazosin [Hytrin] 10 mg PO DAILY 02/07/23 Aspirin [Rae] 650 mg PO BID 02/18/24 Atorvastatin Calcium 40 mg PO QPM 02/18/24 Vit A/Vit C/D3/Zinc/Herbal 331 [Alive Immune Health Softgel] 1 cap PO DAILY 02/18/24 Objective - Vital Signs/Intake & Output Reviewed Vital Signs: Yes Vital Signs: Vital Signs x48h Temp Pulse Pulse Resp BP BP Pulse Ox 02/22/24 08:40 36.1 C L 71 18 129/73 93 02/22/24 07:07 68 18 02/22/24 05:59 36.2 C L 62 16 155/88 H 95 Intake & Output: Intake & Output 02/19/24 02/20/24 02/21/24 02/22/24 23:59 23:59 23:59 23:59 Intake Total 3703.333 2230 2000 870 Output Total 3700 3500 2700 1300 Balance 3.333 -1270 -700 -430 - Objective General Appearance: positive: No acute distress, Alert Eyes Bilateral: positive: Normal inspection, PERRL Neck: positive: No JVD Respiratory: positive: Chest non-tender, No respiratory distress, Rales (LLL). negative: Wheezes, Rhonchi Cardiovascular: positive: No murmur, No gallop, Irregularly irregular Peripheral Pulses: 2+ Radial (R), 2+ Radial (L), 2+ Dorsalis pedis (R), 2+ Dorsalis pedis (L) Abdomen: positive: Non-tender, No organomegaly, Nml bowel sounds, No distention. negative: Guarding, Rebound Back: positive: Nml inspection Skin: positive: Color nml, No rash, Warm, Dry, Other (Intact serous blister approx 4 cm LLE, no erythema or tenderness) Extremities: positive: Full ROM, Nml appearance, No pedal edema Neurologic/Psychiatric: positive: Oriented x3, CN's nml (2-12), Motor nml, Sensation nml, Mood/affect nml - Lab Results Fish Bones: 02/22/24 05:28 02/22/24 05:28 Other Labs: Lab Results x24hrs 02/22/24 02/22/24 Range/Units 05:28 05:28 WBC 12.9 H (4.8-10.8) x10^3/uL RBC 4.49 L (4.70-6.10) 10^6/uL Hgb 13.4 L (14.0-18.0) g/dL Hct 40.6 L (42.0-52.0) % MCV 90.4 (80.0-94.0) fL MCH 29.8 (27.0-31.0) pg MCHC 33.0 (32.0-36.0) g/dL RDW 13.7 (12.0-15.0) % Plt Count 314 (130-450) 10^3/uL MPV 9.8 (7.4-11.4) fL Neut # (Auto) 9.6 H (1.5-6.6) 10^3/uL Lymph # (Auto) 2.0 (1.5-3.5) 10^3/uL [place] # (Auto) 0.7 (0.0-1.0) 10^3/uL Eos # (Auto) 0.0 (0.0-0.7) 10^3/uL Baso # (Auto) 0.0 (0.0-0.1) 10^3/uL Absolute Nucleated RBC 0.00 x10^3/uL Nucleated RBC % 0.0 /100WBC Manual Slide Review Indicated Platelet Estimate NORMAL (130-450,000) (NORMAL) Platelet Morphology NORMAL APPEARANCE (NORMAL) Sodium 137 (135-145) mmol/L Potassium 3.9 (3.5-4.5) mmol/L Chloride 105 (101-111) mmol/L Carbon Dioxide 27 (21-32) mmol/L Anion Gap 5.0 L (6-13) BUN 16 (6-20) mg/dL Creatinine 0.4 L (0.6-1.3) mg/dL Estimated GFR (MDRD) 211 (>89) Glucose 113 H (74-104) mg/dL Calcium 8.5 (8.5-10.3) mg/dL - Other Results/Comments Other Results/Comments: Telemetry strips demonstrate multiple rhythms, predominalty a-fib with episodes of an apparent accelerated indioventricular rhythm and sinus rhythm with PVCs. No acute symptoms associated with these rhythm changes. ABX Reporting Has patient been on IV antibiotics over the past 48 hours?: Yes Sepsis Event Note (H) - Evaluation Current Stage of Sepsis: Ruled out Assessment/Plan - Problem List (1) Syncope Impression: Mr. Huizar had a syncople episode 02/19 when he was getting up to use the restroom. He states he woke up on the floor partially under the bed, climbed back into bed, and then called the nurse. He had an abrasion to his right moravian, contusion to his right upper arm, and abrasion to his right elbow. A head CT was negative, he has no acute neurologic findings or complaints of pain. He was hypotensive at 08:56 with a supine BP of 82/59 and HR of 101 which droppe d to 71/43 with standing and in HR to 68. He has been orthostatic since 02/19, no further syncople episodes. He has not been up and out of bed due to dizziness since 02/19. His telemetry shows primarily a-fib, with episodes of accelerated indioventricular rhythm and some periods of sinus rhythm with ventricular ectopy. He has no complaints of chest pain, palpitations, or sob. He has no hx of a-fib and is not anticoagulated but is on daily ASA. I placed him on metoprolol 25 mg PO BID, started him on eliquis 5 mg PO BID, and stopped his aspirin and lovenox. I discussed with him the risks of bleeding from the eliquis, especially as it relates to a head injury from a fall, versus the risk of stroke related to a CVA. He verbalized understanding and was agreeable with the plan. His metoprolol was held last night due to HR 50-60, was given this morning. He remains orthostatic, unable to tolerate sitting or standing, and did received his metoprolol this morning. He had a single hypotensive BP with no associated sx and was normotensive when BP rechecked. At this point, he cannot be safely discharged home, especially now that he is anticoagulated. I will consult with cardiology at [facility] for consideration of pacemaker placement. I discussed my concerns with Mr. Huizar and he is amenable to the plan. He states his father had a pacemaker along with others in his family. He is understanding of why he remains admitted. I discussed with him the need to move and change positions in bed as he is now at risk of deconditioning due to his bedbound status. Qualifiers: Syncope type: unspecified Qualified Code(s): R55 - Syncope and collapse (2) Atrial fibrillation, new onset Impression: See discussion for syncope. (3) Pneumonia Impression: Cough, progressive SOB with weakness and dyspnea on exertion. Recent pneumonia treated with azithromycin and augmentin 12/25. Chest x-ray shows LLL infiltrate, was started on azithromycin this morning outpatient and started on levaquin IV in the ED. His O2 sats are stable on RA. He finished his course of levaquin today and pneumonia is resolved. Qualifiers: Pneumonia type: due to unspecified organism Laterality: left Lung location: lower lobe of lung Qualified Code(s): J18.9 - Pneumonia, unspecified organism (4) COVID-19 Impression: Tested positive for COVID-19 in the ED. Placed on respiratory precautions. (5) COPD exacerbation Impression: See management of pneumonia, continued on budesonide and fomoterol and will restart home breo on discharge. His methylprednisolone was discontinued today and his COPD is stable. (6) Hypothyroidism Impression: Hx of hypothyroid. I will continue home levothyroxine 75 mcg PO. TSH was 0.42 on 02/18. Qualifiers: Hypothyroidism type: acquired Qualified Code(s): E03.9 - Hypothyroidism, unspecified
[2024-02-23 06:04] LABS: BASOPHILS # (AUTO) 0.1 10^3/uL (0.0-0.1); BASOPHILS % (AUTO) 0.4 %; EOSINOPHILS # (AUTO) 0.1 10^3/uL (0.0-0.7); EOSINOPHILS % (AUTO) 0.5 %; HCT - HEMATOCRIT 42.4 % (42.0-52.0); HGB - HEMOGLOBIN 13.7 g/dL (14.0-18.0); LYMPHOCYTES # (AUTO) 2.8 10^3/uL (1.5-3.5); LYMPHOCYTES % (AUTO) 21.8 %; MEAN CORPUSCULAR HEMOGLOBIN 29.8 pg (27.0-31.0); MEAN CORPUSCULAR HGB CONC 32.3 g/dL (32.0-36.0); MEAN CORPUSCULAR VOLUME 92.4 fL (80.0-94.0); MEAN PLATELET VOLUME 9.9 fL (7.4-11.4); MONOCYTES # (AUTO) 0.8 10^3/uL (0.0-1.0); NEUTROPHILS # (AUTO) 8.5 10^3/uL (1.5-6.6); NEUTROPHILS % (AUTO) 65.2 %; PLT - PLATELET COUNT 340 10^3/uL (130-450); RED BLOOD COUNT 4.59 10^6/uL (4.70-6.10)
[2024-02-23 06:12] LABS: CALCIUM 8.5 mg/dL (8.5-10.3); CREATININE 0.5 mg/dL (0.6-1.3); POTASSIUM 3.8 mmol/L (3.5-4.5)
[2024-02-23 07:09] LABS: SLIDE REVIEW? Indicated
[2024-02-23 07:14] LABS: PLATELET ESTIMATE, MANUAL NORMAL (130-450,000) (NORMAL); PLATELET MORPHOLOGY NORMAL APPEARANCE (NORMAL)
--- NOTE | 2024-02-23 09:44 | XRAY Report ---
PROCEDURE: Chest 1V INDICATIONS: rising wbc TECHNIQUE: One view of the chest was acquired. COMPARISON: 02/18/2024, 12/26/2023 FINDINGS: Surgical changes and devices: None. Lungs and pleura: No pleural effusions or pneumothorax. Lungs are clear. Mediastinum: Mediastinal contours appear normal. Heart size is normal. Bones and chest wall: No suspicious bony lesions. Overlying soft tissues appear unremarkable. IMPRESSION: No acute cardiopulmonary process. Resolved left basilar opacities. Reviewed by: Zechariah Peña MD on 02/23/2024 9:43 AM PDT Approved by: Zechariah Peña MD on 02/23/2024 9:43 AM PDT Station ID: [id number]
--- NOTE | 2024-02-23 10:38 | PROVIDER PROGRESS NOTE ---
Subjective - Prog Note Date Prog Note Date: 02/23/24 Prog Note Time: 10:32 - Subjective Pt reports feeling: Improved Subjective: Mr. Huizar presented to the ED for weakness, progressive SOB and cough on 02/17. EMS reported hypotension in the field which resolved with a 500cc bolus. He reports having diarrhea the day of admission and family report he had a near syncople episode. He was seen at the ED on 12/26/23, dx with pneumonia and treated with azithromycin and Augmentin. He states the way he feels now are very similar to how he felt with the pneumonia. He was seen outpatient earlier today and started on azithromycin, no tests or studies were done. He has a hx of COPD, BPH, and hypothyroid and is a current smoker. In the ED he tested positive for COVID-19, chest x-ray found resolving infiltrate LLL. He became hypoxemic with ambulation, with O2 sats dropping from 92% to 89%. His BNP was 50 and he has no signs of volume overload, ruling out HF. He was admitted for COPD exacerbation with pneumonia and COVID-19 and hypotension. He completed 5 days Levaquin for the pneumonia today. His COPD is being managed with formoterol 20 mcg BID, budesonide 0.5 mg BID, guaifenasin 10 ml PO. He was on methylprednisone which was discontinued on today after 4 days on 40 mg IV . He received 2 L NS on 02/17 and 2.5l NS on 02/18, 500 cc NS on 02/19 and 02/20 due to persistent orthostatic vs. His BP remains labile and he was orthostatic again today. He is unable to tolerate prolonged sitting or standing. He reports feeling pretty good as long as he doesn't get up. He denies chest pain, SOB, headache, n/v, abdominal pain, or diarrhea today. He states he often gets dizzy when he stands so he stands up slowly. He has not had any recent changes in home meds. Two days ago, he had a syncople episode getting up to use the restroom, states he woke up on the floor nursing home under the bed, got back into bed and then called the nurse. He has an abrasion right taoist, contusion right upper arm and abrasion right elbow. CT head was negative for ICH, and he has no acute neurologic symtpoms. A benjamin was placed and he is unable to amb ulate without dizziness. He was noted to have an irregular HR on 02/19 and placed on tele. Tele monitoring demonstrates new onset a-fib not previously documented, onset unknown but dizziness has been present for past 3 months. He is not a good candidate for rhythm control as onset is unknown, possibly 3 mo ago or longer as he was asked a year ago if he had a-fib by an aid, and he was not anticoagulated previously. He also has episodes of accelerated idioventricular rhythm and some strips with sinus rhythm with PVCs. He was started him on metoprolol and Eliquis last night. Metoprolol was held last on 02/20 once for bradycardia. His HR is high 50's to 70's for the past two days and BP is stable seated in bed. He remains orthostatic this am with sitting and standing. Cardiology at [facility] was consulted last night and he is not a candidate for immediate pacemaker placement. He is to follow-up outpatient after discharge with the recommendation that he not be anticoagulated due to his risk of syncope and falls. He is also on terazosin which may be contributing to his orthostatics. I discontinued the terazosin and will check orthostatics tonight and tomorrow morning. In preparation for discharge tomorrow, I discontinued his benjamin and will have him up for meals. He was up and walking with a walker today and was previously independent when he came in. I will have nursing staff work with him on syncope prevention practices. I discussed the recommendation from cardiology that we di scontinue anticoagulation due to his increased risk of falls and bleeding. He verbalized understanding and is agreeable with the plan. I will continue tele monitoring over the evening to see if there is any correlation of dizziness with underlying rhythm/rate and have instructed him to call his nurse if he feels funny so that we can check. Current Medications - Current Medications Current Medications: Active Medications Generic Name Dose Route Start Last Admin Trade Name Freq PRN Reason Stop Dose Admin Acetaminophen 650 mg 02/18/24 02:40 02/19/24 00:44 Acetaminophen 325 Mg Tablet PO 650 mg Q4HR PRN Administration Pain 1 to 4, or Fever Apixaban 5 mg 02/21/24 21:00 02/23/24 08:31 Apixaban 5 Mg Tablet PO 5 mg BID DRISS Administration Atorvastatin Calcium 40 mg 02/19/24 21:00 02/22/24 21:12 Atorvastatin 40 Mg Tablet PO 40 mg QPM DRISS Administration Budesonide 0.5 mg 02/18/24 07:00 02/23/24 07:27 Budesonide 0.5 Mg/2 Ml Neb INH 0.5 mg RTBID DRISS Administration Cholecalciferol 25 mcg 02/18/24 09:00 02/23/24 08:31 Cholecalciferol 25 Mcg Tablet PO 25 mcg DAILY DRISS Administration Finasteride 5 mg 02/18/24 09:00 02/23/24 08:31 Finasteride 5 Mg Tablet PO 5 mg DAILY DRISS Administration Formoterol Fumarate 20 mcg 02/18/24 07:00 02/23/24 07:27 Formoterol Fumarate Neb 20 Mcg/2 Ml INH 20 mcg RTBID DRISS Administration Guaifenesin 10 ml 02/18/24 03:31 02/19/24 00:45 Guaifenesin/Dextromethorphan 10 Ml Udc PO 10 ml Q6HR PRN Administration Cough Levothyroxine Sodium 75 mcg 02/18/24 07:00 02/23/24 06:12 Levothyroxine 75 Mcg Tablet PO 75 mcg QDAC DRISS Administration Lidocaine 1 patch 02/19/24 01:00 Lidocaine Patch 5% TOP DAILY PRN Moderate Pain (Level 4-6) Metoprolol Tartrate 25 mg 02/21/24 21:00 02/23/24 08:29 Metoprolol Tartrate 25 Mg Tablet PO 25 mg BID DRISS Administration Ondansetron HCl 4 mg 02/18/24 02:40 Ondansetron Odt 4 Mg Tablet TL Q6HR PRN Nausea / Vomiting Ondansetron HCl 4 mg 02/18/24 02:40 Ondansetron 4 Mg/2 Ml Vial IVP Q6HR PRN Nausea / Vomiting Saccharomyces Boulardii 250 mg 02/18/24 08:00 02/23/24 08:30 Saccharomyces Boulardii 250 Mg Capsule PO 250 mg BIDWM DRISS Administration Sodium Chloride 10 ml 02/18/24 02:40 02/20/24 03:26 Sodium Chloride Flush 0.9% 10 Ml Syringe IVP 10 ml PRN PRN Administration NEEDED PER PROVIDER ORDERS Sodium Chloride 10 ml 02/18/24 09:00 02/23/24 08:32 Sodium Chloride Flush 0.9% 10 Ml Syringe IVP 10 ml 0100,0900,1700 DRISS Administration Sodium Chloride 1 gm 02/21/24 09:00 02/23/24 08:31 Sodium Chloride 1 Gm Tablet PO 1 gm DAILY DRISS Administration Finasteride [Proscar] 5 mg PO QPM 02/07/23 Fluticasone/Vilanterol [Breo Ellipta 100-25 Mcg Inhalr] 1 puffs INH DAILY 02/07/23 Terazosin [Hytrin] 10 mg PO DAILY 02/07/23 Aspirin [Rae] 650 mg PO BID 02/18/24 Atorvastatin Calcium 40 mg PO QPM 02/18/24 Vit A/Vit C/D3/Zinc/Herbal 331 [[email or web address] Softgel] 1 cap PO DAILY 02/18/24 Objective - Vital Signs/Intake & Output Reviewed Vital Signs: Yes Vital Signs: Vital Signs x48h Temp Pulse Pulse Resp BP BP Pulse Ox 02/23/24 08:29 119/71 02/23/24 07:47 36.1 C L 57 L 18 119/71 93 02/23/24 07:28 70 20 02/23/24 04:59 36.1 C L 65 18 121/64 92 Intake & Output: Intake & Output 02/20/24 02/21/24 02/22/24 02/23/24 23:59 23:59 23:59 23:59 Intake Total 2230 2000 1530 357 Output Total 3500 2700 2100 1000 Balance -1270 -700 -570 -643 - Objective General Appearance: positive: No acute distress, Alert, Other (73 y/o male who appears stated age, alert and sitting up in bed with no apparent distress) Eyes Bilateral: positive: Normal inspection Neck: positive: Nml inspection, No JVD Respiratory: positive: Chest non-tender, No respiratory distress, Breath sounds nml. negative: Wheezes, Rales, Rhonchi Cardiovascular: positive: No murmur, No gallop, Irregularly irregular Peripheral Pulses: 2+ Radial (R), 2+ Radial (L), 2+ Dorsalis pedis (R), 2+ Dorsalis pedis (L) Abdomen: positive: Non-tender, No organomegaly, Nml bowel sounds, No distention Back: positive: Nml inspection Skin: positive: Color nml, No rash, Warm, Dry, Other (Healing abrasion right taoist, healing contusion right upper arm and healing abrasion right elbow. Intact serous blister approx 4 cm long left [place], no erythema or tenderness.) Extremities: positive: Nml appearance, No pedal edema, Other (approx 4 cm intact serous blister LLE, no redness or erythema) Neurologic/Psychiatric: positive: Oriented x3, CN's nml (2-12), Motor nml, Sensation nml, Mood/affect nml - Lab Results Fish Bones: 02/23/24 05:15 02/23/24 05:15 Other Labs: Lab Results x24hrs 02/23/24 02/23/24 Range/Units 05:15 05:15 WBC 13.0 H (4.8-10.8) x10^3/uL RBC 4.59 L (4.70-6.10) 10^6/uL Hgb 13.7 L (14.0-18.0) g/dL Hct 42.4 (42.0-52.0) % MCV 92.4 (80.0-94.0) fL MCH 29.8 (27.0-31.0) pg MCHC 32.3 (32.0-36.0) g/dL RDW 14.0 (12.0-15.0) % Plt Count 340 (130-450) 10^3/uL MPV 9.9 (7.4-11.4) fL Neut # (Auto) 8.5 H (1.5-6.6) 10^3/uL Lymph # (Auto) 2.8 (1.5-3.5) 10^3/uL [place] # (Auto) 0.8 (0.0-1.0) 10^3/uL Eos # (Auto) 0.1 (0.0-0.7) 10^3/uL Baso # (Auto) 0.1 (0.0-0.1) 10^3/uL Absolute Nucleated RBC 0.00 x10^3/uL Nucleated RBC % 0.0 /100WBC Manual Slide Review Indicated Platelet Estimate NORMAL (130-450,000) (NORMAL) Platelet Morphology NORMAL APPEARANCE (NORMAL) Sodium 135 (135-145) mmol/L Potassium 3.8 (3.5-4.5) mmol/L Chloride 102 (101-111) mmol/L Carbon Dioxide 28 (21-32) mmol/L Anion Gap 5.0 L (6-13) BUN 19 (6-20) mg/dL Creatinine 0.5 L (0.6-1.3) mg/dL Estimated GFR (MDRD) 163 (>89) Glucose 104 (74-104) mg/dL Calcium 8.5 (8.5-10.3) mg/dL - Diagnostic Imaging Diagnostic Imaging Results: positive: Final report reviewed Diagnostic Imaging Comments: Chest x-ray: Previous LLL effusion resolved, no opacities or pleural effusion, no acute findings ABX Reporting Has patient been on IV antibiotics over the past 48 hours?: Yes Sepsis Event Note (H) - Evaluation Current Stage of Sepsis: Ruled out Assessment/Plan - Problem List (1) Syncope Impression: Mr. Huizar had a syncople episode 02/19 when he was getting up to use the restroom. He states he woke up on the floor partially under the bed, climbed back into bed, and then called the nurse. He had an abrasion to his right taoist, contusion to his right upper arm, and abrasion to his right elbow. A head CT was negative, he has no acute neurologic findings or complaints of pain. He was hypotensive at 08:56 with a supine BP of 82/59 and HR of 101 which dropped to 71/43 with standing and in HR to 68. He has been orthostatic since 02/19, no further syncople episodes. He has not been up and out of bed due to dizziness since 02/19. His telemetry shows primarily a-fib, with episodes of accelerated indioventricular rhythm and some periods of sinus rhythm with ventricular ectopy. He has no complaints of chest pain, palpitations, or sob. He has no hx of a-fib and is not anticoagulated but is on daily ASA. I placed him on metoprolol 25 mg PO BID, started him on eliquis 5 mg PO BID, and stopped his aspirin and lovenox. His metoprolol was held on 02/20 due to HR 50-60, but he has tolerated it well since. He remains orthostatic in the morning, unable to tolerate sitting or standing. He had a single hypotensive BP with no associated sx and was normotensive when BP rechecked. At this point, he cannot be safely discharged home, especially now that he is anticoagulated. After consultation with cardiology at [facility], he is not a candidate for immediate pacemaker placement as it is not clear that his syncope is rate related. It was also recommended that we stop anticoagulation as his risk of falling and bleeding outweighs the benefits of anticoagulation. He will follow-up with cardiology outpatient. Review of his home medications identified that he is on 10 mg of terazosin for his prostate related urinary retention. This is a high dose and may be the cause of his persistent orthostatics. Review of his chart shows orthostatics with hypotension in the morning but not in the evening before his bedtime dose of terazosin. I have stopped his terazosin. I will have his orthostatics check again tonight and tomorrow and see if they improve with discontinuation of the terazosin. I hope this will help with his dizziness and allow for safe discharge. I will also have him up for meals and ambulating with a stand-by and walker to work on getting him to baseline mobility and ready for discharge. Qualifiers: Syncope type: unspecified Qualified Code(s): R55 - Syncope and collapse (2) Atrial fibrillation, new onset Impression: Is on metoprolol for rate control, tolerating it well. Currently anticoagulated on eliquis which I will discontinue today after discussion with cardiology as the risk of bleeding from a fall outweighs the benefits of anticoagulation. I will continue his tele through the night to monitor for tachycardias and bradycardias. (3) Pneumonia Impression: Cough, progressive SOB with weakness and dyspnea on exertion. Recent pneumonia treated with azithromycin and augmentin 12/25. Chest x-ray shows LLL infiltrate, was started on azithromycin this morning outpatient and started on levaquin IV in the ED. His O2 sats are stable on RA. He finished his course of levaquin 02/22 and pneumonia is resolved on chest x-ray this am. WBCs have increased slightly to 13,000 but I am not concerned as he has no symptoms of infection. Qualifiers: Pneumonia type: due to unspecified organism Laterality: left Lung location: lower lobe of lung Qualified Code(s): J18.9 - Pneumonia, unspecified organism (4) COVID-19 Impression: Tested positive for COVID-19 in the ED. Placed on respiratory precautions. No acute febrile, respiratory, or flu-like complaints. (5) COPD exacerbation Impression: See management of pneumonia, continued on budesonide and fomoterol and will restart home breo on discharge. His methylprednisolone was discontinued yesterday. (6) Hypothyroidism Impression: Hx of hypothyroid. I will continue home levothyroxine 75 mcg PO. TSH was 0.42 on 02/18. Qualifiers: Hypothyroidism type: acquired Qualified Code(s): E03.9 - Hypothyroidism, unspecified
[2024-02-23 18:24] LABS: BILIRUBIN,URINE NEGATIVE (NEGATIVE); GLUCOSE, URINE (UA) NEGATIVE (NEGATIVE); KETONES,URINE (UA) NEGATIVE (NEGATIVE); LEUKOCYTE ESTERASE, URINE NEGATIVE (NEGATIVE); NITRITE,URINE NEGATIVE (NEGATIVE); OCCULT BLOOD,URINE MODERATE (NEGATIVE); PH,URINE 7.5 PH (5.0-7.5); PROTEIN,URINE NEGATIVE (NEGATIVE); UROBILINOGEN,URINE 0.2 (NORMAL) E.U./dL (NORMAL)
[2024-02-23 18:34] LABS: BACTERIA,URINE None Seen /HPF (None Seen); CLARITY,URINE CLEAR (CLEAR); RBC,URINE TNTC /HPF (0-5); SQUAMOUS EPITHELIAL CELL,UR RARE Squamous (<= Few); WBC,URINE 0-3 /HPF (0-3)
[2024-02-24] MEDS ORDERED: ZINC OXIDE 20% OINT 30 GM TUBE TOP PRN (04:04)
[2024-02-24 05:59] LABS: BASOPHILS % (AUTO) 0.2 %; EOSINOPHILS # (AUTO) 0.1 10^3/uL (0.0-0.7); EOSINOPHILS % (AUTO) 0.6 %; HCT - HEMATOCRIT 43.9 % (42.0-52.0); HGB - HEMOGLOBIN 14.4 g/dL (14.0-18.0); LYMPHOCYTES # (AUTO) 2.2 10^3/uL (1.5-3.5); LYMPHOCYTES % (AUTO) 13.8 %; MEAN CORPUSCULAR HEMOGLOBIN 29.6 pg (27.0-31.0); MEAN CORPUSCULAR HGB CONC 32.8 g/dL (32.0-36.0); MEAN CORPUSCULAR VOLUME 90.3 fL (80.0-94.0); MEAN PLATELET VOLUME 9.8 fL (7.4-11.4); MONOCYTES # (AUTO) 0.8 10^3/uL (0.0-1.0); MONOCYTES % (AUTO) 5.2 %; NEUTROPHILS # (AUTO) 12.3 10^3/uL (1.5-6.6); NEUTROPHILS % (AUTO) 76.5 %; PLT - PLATELET COUNT 339 10^3/uL (130-450); RED BLOOD COUNT 4.86 10^6/uL (4.70-6.10); RED CELL DISTRIBUTION WIDTH 13.9 % (12.0-15.0); WHITE BLOOD COUNT 16.1 x10^3/uL (4.8-10.8)
[2024-02-24 06:48] LABS: SLIDE REVIEW? Indicated
[2024-02-24 07:00] LABS: PLATELET ESTIMATE, MANUAL INCREASED (>450,000) (NORMAL); PLATELET MORPHOLOGY NORMAL APPEARANCE (NORMAL)
[2024-02-24 07:02] LABS: CALCIUM 8.4 mg/dL (8.5-10.3); CREATININE 0.4 mg/dL (0.6-1.3)
[2024-02-24] MEDS: MIDODRINE 2.5 MG TABLET PO SCH (10:18)
--- NOTE | 2024-02-24 14:20 | PROVIDER PROGRESS NOTE ---
Subjective - Prog Note Date Prog Note Date: 02/24/24 Prog Note Time: 14:01 - Subjective Pt reports feeling: No change Subjective: Mr. Huizar presented to the ED for weakness, progressive SOB and cough on 02/17. EMS reported hypotension in the field which resolved with a 500cc bolus. He reports having diarrhea the day of admission and family report he had a near syncople episode. He was seen at the ED on 12/26/23, dx with pneumonia and treated with azithromycin and Augmentin. He states the way he feels now are very similar to how he felt with the pneumonia. He was seen outpatient earlier today and started on azithromycin, no tests or studies were done. He has a hx of COPD, BPH, and hypothyroid and is a current smoker. In the ED he tested positive for COVID-19, chest x-ray found resolving infiltrate LLL. He became hypoxemic with ambulation, with O2 sats dropping from 92% to 89%. His BNP was 50 and he has no signs of volume overload, ruling out HF. He was admitted for COPD exacerbation with pneumonia and COVID-19 and hypotension. He completed 5 days Levaquin for the pneumonia today. His COPD is being managed with formoterol 20 mcg BID, budesonide 0.5 mg BID, guaifenasin 10 ml PO. He was on methylprednisone which was discontinued on today after 4 days on 40 mg IV . He received 2 L NS on 02/17 and 2.5l NS on 02/18, 500 cc NS on 02/19 and 02/20 due to persistent orthostatic vs. His BP remains labile and he remains orthostatic. He is unable to tolerate prolonged sitting or standing. He reports feeling pretty good as long as he doesn't get up. He denies chest pain, SOB, headache, n/v, abdominal pain. He states he often gets dizzy when he stands so he stands up slowly. He has not had any recent changes in home meds. Two days ago, he had a syncople episode getting up to use the restroom, states he woke up on the floor prison under the bed, got back into bed and then called the nurse. He has an abrasion right mandaeism, contusion right upper arm and abrasion right elbow. CT head was negative for ICH, and he has no acute neurologic symtpoms. A benjamin was placed and he is unable to ambulate without dizziness. He was noted to have an irregular HR on 02/19 and placed on tele. Tele monitoring demonstrates new onset a-fib not previously documented, onset unknown but dizziness has been present for past 3 months. He is not a good candidate for rhythm control as onset is unknown, possibly 3 mo ago or longer as he was asked a year ago if he had a-fib by an aid, and he was not anticoagulated previously. He also has episodes of accelerated idioventricular rhythm and some strips with sinus rhythm with PVCs. He was started him on metoprolol and Eliquis last night. Metoprolol was held last on 02/20 once for bradycardia. His HR is high 50's to 70's for the past two days and BP is stable seated in bed. He remains o rthostatic with sitting and standing but is able to get up to the chair using a walker and stab-by assist. Cardiology at [facility] was consulted and he is not a candidate for immediate pacemaker placement. He is to follow-up outpatient after discharge with the recommendation that he not be anticoagulated due to his risk of syncope and falls. He is also on terazosin which may be contributing to his orthostatics. Last night he had diarrhea and urinary retention, was up until 4 am. His benjamin was replaced and he was sleeping when I rounded in the morning. He has been using a stright catheter for urinary retention at home and has previously had a benjamin outpatient as well. Stool samples were sent out to r/o c-diff and he has been in the hospital and received IV antibiotics. He remains orthostatic this morning and did not recieve his terazosin last night. He has been started on midodrine 5 mg BID and we will continue to check orthostatics. He left eye is newly red with mild purulent discharge, he denies pain or vision changes. He states this has happened for years as he has obstructed tear ducts. He has eye drops he uses at home but doesn't remember the name. I will have nursing provide warm damp washclothes. Otherwise, he is in good spirits and understands we are doing everything we can to help him get home. Further discussion regarding the onset of the dizziness reveals that it started about a week before his admission. He states he passed out once the week before his admission and then 3x the day of his admission. He had previously stated it had been going on for a while and that he had often felt dizzy, but had only passed out once or twice over the past few months. While we have identified underlying a-fib and removed him from his terazosin, we have been unable to correlate his orthostatics with arrhythmia or identify a specific cause. We have discontinued his terazosin which can cause orthostatic hypotension and are starting him on midodrin. I have discussed with him the concerns we have for injury and syncope at home but also discussed that we may not be able to solve this during his admission. He is open to home health PT and would be OK with discharging home with a benjamin as he has done this previously. Current Medications - Current Medications Current Medications: Active Medications Generic Name Dose Route Start Last Admin Trade Name Freq PRN Reason Stop Dose Admin Acetaminophen 650 mg 02/18/24 02:40 02/19/24 00:44 Acetaminophen 325 Mg Tablet PO 650 mg Q4HR PRN Administration Pain 1 to 4, or Fever Atorvastatin Calcium 40 mg 02/19/24 21:00 02/23/24 22:18 Atorvastatin 40 Mg Tablet PO 40 mg QPM DRISS Administration Budesonide 0.5 mg 02/18/24 07:00 02/24/24 09:28 Budesonide 0.5 Mg/2 Ml Neb INH 0.5 mg RTBID DRISS Administration Calcium Carbonate/Glycine 500 mg 02/24/24 21:00 Calcium Carbonate Chew 500 Mg Tablet PO BID DRISS Cholecalciferol 25 mcg 02/18/24 09:00 02/24/24 10:18 Cholecalciferol 25 Mcg Tablet PO 25 mcg DAILY DRISS Administration Finasteride 5 mg 02/18/24 09:00 02/24/24 10:18 Finasteride 5 Mg Tablet PO 5 mg DAILY DRISS Administration Formoterol Fumarate 20 mcg 02/18/24 07:00 02/24/24 09:28 Formoterol Fumarate Neb 20 Mcg/2 Ml INH 20 mcg RTBID DRISS Administration Guaifenesin 10 ml 02/18/24 03:31 02/19/24 00:45 Guaifenesin/Dextromethorphan 10 Ml Udc PO 10 ml Q6HR PRN Administration Cough Levothyroxine Sodium 75 mcg 02/18/24 07:00 02/24/24 07:01 Levothyroxine 75 Mcg Tablet PO 75 mcg QDAC DRISS Administration Lidocaine 1 patch 02/19/24 01:00 Lidocaine Patch 5% TOP DAILY PRN Moderate Pain (Level 4-6) Metoprolol Tartrate 25 mg 02/21/24 21:00 02/24/24 10:18 Metoprolol Tartrate 25 Mg Tablet PO 25 mg BID DRISS Administration Midodrine 5 mg 02/24/24 10:00 02/24/24 14:01 Midodrine 2.5 Mg Tablet PO 5 mg TID DRISS Administration Multi-Ingredient Ointment 1 applic 02/24/24 04:04 Zinc Oxide 20% Oint 30 Gm Tube TOP PRN PRN Skin Care Ondansetron HCl 4 mg 02/18/24 02:40 Ondansetron Odt 4 Mg Tablet TL Q6HR PRN Nausea / Vomiting Ondansetron HCl 4 mg 02/18/24 02:40 Ondansetron 4 Mg/2 Ml Vial IVP Q6HR PRN Nausea / Vomiting Saccharomyces Boulardii 250 mg 02/18/24 08:00 02/24/24 10:18 Saccharomyces Boulardii 250 Mg Capsule PO 250 mg BIDWM DRISS Administration Sodium Chloride 10 ml 02/18/24 02:40 02/20/24 03:26 Sodium Chloride Flush 0.9% 10 Ml Syringe IVP 10 ml PRN PRN Administration NEEDED PER PROVIDER ORDERS Sodium Chloride 10 ml 02/18/24 09:00 02/24/24 10:18 Sodium Chloride Flush 0.9% 10 Ml Syringe IVP 10 ml 0100,0900,1700 DRISS Administration Sodium Chloride 1 gm 02/21/24 09:00 02/24/24 10:17 Sodium Chloride 1 Gm Tablet PO 1 gm DAILY DRISS Administration Finasteride [Proscar] 5 mg PO QPM 02/07/23 Fluticasone/Vilanterol [Breo Ellipta 100-25 Mcg Inhalr] 1 puffs INH DAILY 02/07/23 Terazosin [Hytrin] 10 mg PO DAILY 02/07/23 Aspirin [Rae] 650 mg PO BID 02/18/24 Atorvastatin Calcium 40 mg PO QPM 02/18/24 Vit A/Vit C/D3/Zinc/Herbal 331 [Alive Immune Health Softgel] 1 cap PO DAILY 02/18/24 Objective - Vital Signs/Intake & Output Reviewed Vital Signs: Yes Vital Signs: Vital Signs x48h Temp Pulse Pulse Resp BP BP Pulse Ox 02/24/24 12:00 36.3 C L 78 16 91/57 L 94 02/24/24 10:18 116/66 02/24/24 09:41 78 18 02/24/24 08:00 36.5 C 74 16 108/64 93 Intake & Output: Intake & Output 02/21/24 02/22/24 02/23/24 02/24/24 23:59 23:59 23:59 23:59 Intake Total 1999 1530 1391 360 Output Total 2700 2100 1590 900 Balance -700 -570 -199 -540 - Objective General Appearance: positive: No acute distress, Alert Eyes Bilateral: positive: PERRL, EOMI. negative: No lid inflammation (Mild periorbital erythema with purulent discharge lateral aspect of the eye) Neck: positive: Nml inspection, No JVD Respiratory: positive: Chest non-tender, No respiratory distress, Breath sounds nml Cardiovascular: positive: Regular rate & rhythm, Systolic murmur. negative: Tachycardia Peripheral Pulses: 2+ Radial (R), 2+ Radial (L), 2+ Dorsalis pedis (R), 2+ Dorsalis pedis (L) Abdomen: positive: Non-tender, No organomegaly, Nml bowel sounds, No distention Back: positive: Nml inspection Skin: positive: Color nml, No rash, Warm, Dry, Other (Healing abrasion right mandaeism and right elbow, healing contusion right upper arm, Intact 4 cm serous blister LLE, no erythema or tenderness) Extremities: positive: Nml appearance, No pedal edema. negative: Calf tenderness Neurologic/Psychiatric: positive: Oriented x3, CN's nml (2-12), Motor nml, Sensation nml, Mood/affect nml - Lab Results Fish Bones: 02/24/24 05:48 02/24/24 05:48 Other Labs: Lab Results x24hrs 02/24/24 02/24/24 02/24/24 Range/Units 05:48 05:48 04:00 WBC 16.1 H (4.8-10.8) x10^3/uL RBC 4.86 (4.70-6.10) 10^6/uL Hgb 14.4 (14.0-18.0) g/dL Hct 43.9 (42.0-52.0) % MCV 90.3 (80.0-94.0) fL MCH 29.6 (27.0-31.0) pg MCHC 32.8 (32.0-36.0) g/dL RDW 13.9 (12.0-15.0) % Plt Count 339 (130-450) 10^3/uL MPV 9.8 (7.4-11.4) fL Neut # (Auto) 12.3 H (1.5-6.6) 10^3/uL Lymph # (Auto) 2.2 (1.5-3.5) 10^3/uL [place] # (Auto) 0.8 (0.0-1.0) 10^3/uL Eos # (Auto) 0.1 (0.0-0.7) 10^3/uL Baso # (Auto) 0.0 (0.0-0.1) 10^3/uL Absolute Nucleated RBC 0.00 x10^3/uL Nucleated RBC % 0.0 /100WBC Manual Slide Review Indicated Platelet Estimate INCREASED (>450,000) (NORMAL) Platelet Morphology NORMAL APPEARANCE (NORMAL) Sodium 137 (135-145) mmol/L Potassium 4.0 (3.5-4.5) mmol/L Chloride 106 (101-111) mmol/L Carbon Dioxide 24 (21-32) mmol/L Anion Gap 7.0 (6-13) BUN 17 (6-20) mg/dL Creatinine 0.4 L (0.6-1.3) mg/dL Estimated GFR (MDRD) 211 (>89) Glucose 105 H (74-104) mg/dL Calcium 8.4 L (8.5-10.3) mg/dL Urine Color Urine Clarity (CLEAR) Urine pH (5.0-7.5) PH Ur Specific [place] (1.002-1.030) Urine Protein (NEGATIVE) mg/dL Urine Glucose (UA) (NEGATIVE) mg/dL Urine Ketones (NEGATIVE) mg/dL Urine Occult Blood (NEGATIVE) Urine Nitrite (NEGATIVE) Urine Bilirubin (NEGATIVE) Urine Urobilinogen (NORMAL) E.U./dL Ur Leukocyte Esterase (NEGATIVE) Urine RBC (0-5) /HPF Urine WBC (0-3) /HPF Ur Squamous Epith Cells (<= Few) Urine Bacteria (None Seen) /HPF Urine Culture Comments Stl C. diff Tox B Gene NEGATIVE (NEGATIVE) 02/23/24 Range/Units 18:10 WBC (4.8-10.8) x10^3/uL RBC (4.70-6.10) 10^6/uL Hgb (14.0-18.0) g/dL Hct (42.0-52.0) % MCV (80.0-94.0) fL MCH (27.0-31.0) pg MCHC (32.0-36.0) g/dL RDW (12.0-15.0) % Plt Count (130-450) 10^3/uL MPV (7.4-11.4) fL Neut # (Auto) (1.5-6.6) 10^3/uL Lymph # (Auto) (1.5-3.5) 10^3/uL [place] # (Auto) (0.0-1.0) 10^3/uL Eos # (Auto) (0.0-0.7) 10^3/uL Baso # (Auto) (0.0-0.1) 10^3/uL Absolute Nucleated RBC x10^3/uL Nucleated RBC % /100WBC Manual Slide Review Platelet Estimate (NORMAL) Platelet Morphology (NORMAL) Sodium (135-145) mmol/L Potassium (3.5-4.5) mmol/L Chloride (101-111) mmol/L Carbon Dioxide (21-32) mmol/L Anion Gap (6-13) BUN (6-20) mg/dL Creatinine (0.6-1.3) mg/dL Estimated GFR (MDRD) (>89) Glucose (74-104) mg/dL Calcium (8.5-10.3) mg/dL Urine Color YELLOW Urine Clarity CLEAR (CLEAR) Urine pH 7.5 (5.0-7.5) PH Ur Specific [place] 1.020 (1.002-1.030) Urine Protein NEGATIVE (NEGATIVE) mg/dL Urine Glucose (UA) NEGATIVE (NEGATIVE) mg/dL Urine Ketones NEGATIVE (NEGATIVE) mg/dL Urine Occult Blood MODERATE H (NEGATIVE) Urine Nitrite NEGATIVE (NEGATIVE) Urine Bilirubin NEGATIVE (NEGATIVE) Urine Urobilinogen 0.2 (NORMAL) (NORMAL) E.U./dL Ur Leukocyte Esterase NEGATIVE (NEGATIVE) Urine RBC TNTC H (0-5) /HPF Urine WBC 0-3 (0-3) /HPF Ur Squamous Epith Cells RARE Squamous (<= Few) Urine Bacteria None Seen (None Seen) /HPF Urine Culture Comments NOT INDICATED Stl C. diff Tox B Gene (NEGATIVE) ABX Reporting Has patient been on IV antibiotics over the past 48 hours?: No Sepsis Event Note (H) - Evaluation Current Stage of Sepsis: Ruled out Assessment/Plan - Problem List (1) Syncope Impression: Mr. Huizar had a syncople episode 02/19 when he was getting up to use the restroom. He states he woke up on the floor partially under the bed, climbed back into bed, and then called the nurse. He had an abrasion to his right mandaeism, contusion to his right upper arm, and abrasion to his right elbow. A head CT was negative, he has no acute neurologic findings or complaints of pain. He was hypotensive at 08:56 with a supine BP of 82/59 and HR of 101 which dropped to 71/43 with standing and in HR to 68. He has been orthostatic since 02/19, no further syncople episodes. He has not been up and out of bed due to dizziness since 02/19. His telemetry shows primarily a-fib, with episodes of accelerated indioventricular rhythm and some periods of sinus rhythm with ventricular ectopy. He has no complaints of chest pain, palpitations, or sob. He has no hx of a-fib and is not anticoagulated but is on daily ASA. I placed him on metoprolol 25 mg PO BID, started him on eliquis 5 mg PO BID, and stopped his aspirin and lovenox. His metoprolol was held on 02/20 due to HR 50-60, but he has tolerated it well since. He remains orthostatic in the morning, unable to tolerate sitting or standing. After consultation with cardiology at [facility], he is not a candidate for immediate pacemaker placement as it is not clear that his syncope is rate related. It was also recommended that we stop anticoagulation as his risk of falling and bleeding outweighs the benefits of anticoagulation. He will follow-up with cardiology outpatient. Review of his home medications identified that he is on 10 mg of terazosin for his prostate related urinary retention. This is a high dose and may be the cause of his persistent orthostatics. Review of his chart shows orthostatics with hypotension in the morning but not in the evening before his bedtime dose of terazosin. I have stopped his terazosin. He remained orthostatic yesterday and today. I have started him on midodrin 5 mg TID and will recheck orthostatics tonight and in the morning. Further discussion regarding the onset of the dizziness reveals that it started about a week before his admission. He states he passed out once the week before his admission and then 3x the day of his admission. He had previously stated it had been going on for a while and that he had often felt dizzy upon standing, but had only passed out once or twice over the past few months. While we have identified underlying a-fib and removed him from his terazosin, we have been unable to correlate his orthostatics with arrhythmia or identify a specific cause. We have discontinued his terazosin which can cause orthostatic hypotension and are starting him on midodrin. I have discussed with him the concerns we have for injury and syncope at home but also discussed that we may not be able to solve this during his admission. Qualifiers: Syncope type: unspecified Qualified Code(s): R55 - Syncope and collapse (2) Atrial fibrillation, new onset Impression: Is on metoprolol for rate control, tolerating it well. Briefly anticoagulated on eliquis which was discontinued as his risk of bleeding due to a fall outweighs the benefits of anticoagulation. He rate has been stable in the high 50's-80's with out any tachycardia or significant bradycardia. (3) Urinary retention due to benign prostatic hyperplasia Impression: He has a hx of BPH with urinary retention and has previously been straight cathing at home as needed. He has also had a benjamin for a period of time. A benjamin was placed after his syncople episode and he failed a removal trial last night with retention and then replacement of the benjamin. I did discontinue his terazosin which was at a high dose which may contribute to worsening of his urinary retention. I discussed options for managing retention at home and he states he likes having the benjamin as it is so much easier. I will se if this is something he can get home health to help him with, especially as the benjamin may reduce his risk of syncope by reducing urgent bathroom trips. (4) Plugged tear duct Impression: Mild periorbital erythema with small amount of yellow discharge in the lateral aspect of his left eye. He states he has blocked tear ducts and that this happens sometimes. He uses an unknown eye drop at home when it does. I will have nursing apply warm dame compresses and see if it clears. He denies any pain, itching, or changes in vision. (5) Pneumonia Impression: Cough, progressive SOB with weakness and dyspnea on exertion. Recent pneumonia treated with azithromycin and augmentin 12/25. Chest x-ray shows LLL infiltrate, was started on azithromycin this morning outpatient and started on levaquin IV in the ED. His O2 sats are stable on RA. He finished his course of levaquin 02/22 and pneumonia is resolved on chest x-ray this am. WBCs have increased slightly to 13,000 but I am not concerned as he has no symptoms of infection. Qualifiers: Pneumonia type: due to unspecified organism Laterality: left Lung location: lower lobe of lung Qualified Code(s): J18.9 - Pneumonia, unspecified organism (6) COVID-19 Impression: Tested positive for COVID-19 in the ED. Placed on respiratory precautions. No acute febrile, respiratory, or flu-like complaints. (7) COPD exacerbation Impression: See management of pneumonia, continued on budesonide and fomoterol and will restart home breo on discharge. His methylprednisolone was discontinued 02/21. (8) Hypothyroidism Impression: Hx of hypothyroid. I will continue home levothyroxine 75 mcg PO. TSH was 0.42 on 02/18. Qualifiers: Hypothyroidism type: acquired Qualified Code(s): E03.9 - Hypothyroidism, unspecified
[2024-02-24] MEDS: CALCIUM CARBONATE CHEW 500 MG TABLET PO SCH (20:38)
[2024-02-25 06:04] LABS: BASOPHILS # (AUTO) 0.1 10^3/uL (0.0-0.1); BASOPHILS % (AUTO) 0.4 %; EOSINOPHILS # (AUTO) 0.2 10^3/uL (0.0-0.7); EOSINOPHILS % (AUTO) 1.2 %; HCT - HEMATOCRIT 42.7 % (42.0-52.0); HGB - HEMOGLOBIN 14.2 g/dL (14.0-18.0); LYMPHOCYTES # (AUTO) 2.6 10^3/uL (1.5-3.5); LYMPHOCYTES % (AUTO) 17.3 %; MEAN CORPUSCULAR HEMOGLOBIN 30.1 pg (27.0-31.0); MEAN CORPUSCULAR HGB CONC 33.3 g/dL (32.0-36.0); MEAN CORPUSCULAR VOLUME 90.5 fL (80.0-94.0); MEAN PLATELET VOLUME 9.6 fL (7.4-11.4); MONOCYTES % (AUTO) 6.8 %; NEUTROPHILS # (AUTO) 10.8 10^3/uL (1.5-6.6); NEUTROPHILS % (AUTO) 71.1 %; PLT - PLATELET COUNT 321 10^3/uL (130-450); RED BLOOD COUNT 4.72 10^6/uL (4.70-6.10); RED CELL DISTRIBUTION WIDTH 14.2 % (12.0-15.0); WHITE BLOOD COUNT 15.1 x10^3/uL (4.8-10.8)
[2024-02-25 06:22] LABS: CALCIUM 8.3 mg/dL (8.5-10.3); CREATININE 0.4 mg/dL (0.6-1.3); POTASSIUM 4.1 mmol/L (3.5-4.5)
[2024-02-25] MEDS: MIDODRINE 10 MG TABLET PO SCH (07:02)
--- NOTE | 2024-02-25 08:52 | Discharge Plan ---
Discharge Plan Problem Reviewed?: Yes Disposition: Home Health Service Condition: Stable Prescriptions: Metoprolol Tartrate [Lopressor] 25 mg PO BID #60 tab Midodrine [ProAmantine] 10 mg PO 0600,1200,1800 #120 tab Diet: Regular Activity Restrictions: Additional Comments (Always use a walker. you will need to keep yourself safe to avoid falls.) Shower Restrictions: Yes (you must use a shower chair, and do not shower or bathe alone. ) Driving Restrictions: Yes (no driving. ) Assistance Devices: Walker Weight Bearing: Full Weight Instruction Topics: AFL/Afib, ED Hypotension Orthostatic Health Concerns: You were admitted to the hospital with pneumonia and exacerbation of your COPD which was associated with being COVID-positive. You received antibiotics and treatment for your pneumonia as well as steroids. Your blood pressure has been quite low here in the hospital. We initially thought this was due to diarrhea associated with your COVID infection. We have checked your thyroid to make sure that the medication is appropriate and this seems to be okay. While you are here in the hospital you developed a heart rhythm called atrial fibrillation. You have been started on medications to help with this 1 of these is a medicine to control your heart rate called metoprolol. You continue to have low blood pressures when you stand up. We have spoken to a heart doctor who recommends that you continue on the metoprolol but that you not be placed on any anticoagulant medications which is also a standard treatment for atrial fibrillation. The reason for this is that we are concerned about head injuries with falls. YOU NEED TO SEE A HEART DOCTOR (SENIOR PLANNING ANALYST) AN OUTPATIENT. For your low blood pressure we have started you on a medication called midodrine. It seems to be working a little bit but you still are dizzy and having low blood pressures when you stand up. The heart doctor would like to see you as an outpatient but at this time they do not see any indication to keep you in the hospital or transfer you to another hospital for further evaluation and treatment. We are very concerned about falls at home. For this reason we need you to have an assistive device at all times when you stand up. Additionally we are ordering home health for physical and Occupational Therapy at home. I would not recommend that you bathe or go to the bathroom alone. You should not drive an automobile or operate heavy machinery. For your bladder we will need to continue the De León catheter. Do not take any more of the medication called terazosin. Also stop your finesteride. YOU NEED TO SEE A UROLOGIST WELL AN OUTPATIENT. No Smoking: If you smoke, Please STOP! Call for help.
[2024-02-25 09:04] VITALS: O2SAT 95
--- NOTE | 2024-02-25 16:54 | DISCHARGE SUMMARY ---
Discharge Summary Admit Date: 02/18/24 Discharge Date: 02/25/24 Discharging Provider: Keysha Hobbs PA-C Primary Care Provider: Pillo Escobar PA-C Code Status: Do Not Attempt Resuscitation Condition at Discharge: Stable Discharge Disposition: Home Health Service - DIAGNOSES Admission Diagnoses: COPD exacerbation COVID-19 infection Left lower lobe pneumonia Hypoxia Hypotension Fatigue Diarrhea Hypokalemia Hyperglycemia BPH Hypothyroidism Tobacco use Discharge Diagnoses with Status of Each Condition: (1) Syncope Impression: Mr. Huizar had a syncople episode 02/19 when he was getting up to use the restroom. He has not been up and out of bed due to dizziness since 02/19. His telemetry shows primarily a-fib, with episodes of accelerated indioventricular rhythm and some periods of sinus rhythm with ventricular ectopy. His hypertension does not seem to correlate with rhythms on telemetry. He has no complaints of chest pain. Medications for his BPH. These include terazosin and finasteride. This has not improved his orthostatic hypotension. He has been started on midodrine 10 mg 3 times daily. His hypotension is improving slightly. On the date of discharge she was able to maintain a sta nding blood pressure of 101/59 which is a vast improvement. While we have identified underlying a-fib and removed him from his terazosin, we have been unable to correlate his orthostatics with arrhythmia or identify a specific cause. I have discussed with him the concerns we have for injury and s yncope at home but We have not been able to completely solve this during his admission Qualifiers: Syncope type: unspecified Qualified Code(s): R55 - Syncope and collapse (2) Atrial fibrillation, new onset Impression: Is on metoprolol for rate control, tolerating it well. Briefly anticoagulated on eliquis which was discontinued as his risk of bleeding due to a fall outweighs the benefits of anticoagulation. He rate has been stable in the high 50's-80's with out any tachycardia or significant bradycardia. (3) Urinary retention due to benign prostatic hyperplasia Impression: He has a hx of BPH with urinary retention and has previously been straight cat alfred at home as needed. He has also had a benjamin for a period of time. A benjamin was placed after his initial syncopal episode and he failed a removal trial . I did discontinue his terazosin, as well as his finesteride, as recommended by pharmacy. I discussed options for managing retention at home and he states he likes having the benjamin as it is so much easier. I would recommend local urology followup at the time of discharge. he has not been seen by urology since 2018 in [place] (4) Plugged tear duct Impression: Mild periorbital erythema with small amount of yellow discharge in the lateral aspect of his left eye. He states he has blocked tear ducts and that this happens sometimes. OK to continue Restasis on dc to home. (5) Pneumonia Impression: Cough, progressive SOB with weakness and dyspnea on exertion. Recent pneumonia treated with azithromycin and augmentin 12/25. Chest x-ray shows LLL infiltrate, was started on azithromycin outpatient and started on levaquin IV in the ED. His O2 sats are stable on RA. He finished his course of levaquin 02/22 and pneumonia is resolved on chest x-ray. Qualifiers: Pneumonia type: due to unspecified organism Laterality: left Lung location: lower lobe of lung Qualified Code(s): J18.9 - Pneumonia, unspecified organism (6) COVID-19 Impression: Tested positive for COVID-19 in the ED. Placed on respiratory precautions. No acute febrile, respiratory, or flu-like complaints. off precautions on 02/25 (7) COPD exacerbation Impression: See management of pneumonia, continued on budesonide and fomoterol and will restart home breo on discharge. His methylprednisolone was discontinued 02/21. (8) Hypothyroidism Impression: Hx of hypothyroid. I will continue home levothyroxine 75 mcg PO. TSH was 0.42 on 02/18. Qualifiers: Hypothyroidism type: acquired Qualified Code(s): E03.9 - Hypothyroidism, unspecified - HPI History of Present Illness: From admit H7P: H&P was conducted via video remotely, using Access Cart. [place] is in [place] Physician is in [place]. No one is at bedside. 73 yo M with PMH of COPD--not on O2, Tobacco use, HLD, BPH, Hypothyroidism, recent PNA presented to the ER with c/o 2 week h/o cough, SOB, weakness. Pt had contact with his 16 month old granddaughter who goes to daycare last month when she had URI symptoms. He subsequently had c/o cough, SOB and presented to the ER on 12/26/23 and was dx'd with LLL PNA 12/26/23 and px'd Zpak, Augmentin. Pt's symptoms improved. His granddaughter then came for a visit about 2 weeks while she had a new URI and was coughing near pt. Pt then began to c/o cough with clear then green sputum, chest congestion, Shortness of breath, weakness, walking imbalance. No F/C. No dizziness. Today, pt saw a Provider in the clinic and was given a prescription for Zpak. Pt took his first dose of Azithromycin around 8P. About 1 hour later, he had an episode of explosive diarrhea, no blood. Later in the evening, he stood up and fell to the ground. Pt says that his son told him that he had passed out, but pt does not remember if he had LOC. His son called EMS. No abdo pain, N/V. Upon arrival, EMS reported BP 70s/40s, 500 cc NS given enroute and SBP improved to 90s-100s. In the ER, BP 103/60, SpO2 92% RA at rest, SpO2 89% RA s/p ambulation K 3.3, Glc 156, COVID-19+ CXR: resolving infiltrate LLL EKG: NSR at 82 bpm, +PVCs, no STTw changes Pt was given IVF in the ER. - CONSULTS | PROCEDURES Procedures: chest XR 02/17 left basilar opacities CXR 02/[address] 02/19- no acute pathology - HOSPITAL COURSE Hospital Course: Admitted with COVID-19, diarrhea and a syncopal episode thought to be due to dehydration related to his diarrhea. His syncopal symptoms improved for several days but he remained orthostatic. For this reason he was held in the hospital. He then had an episode of syncope where he found himself under his bed. CT of the head was negative. It was around this time that he developed urinary retention which is something that he has had on and off for years. He remained on telemetry he did have frequent PVCs and some episodes of wide QRS which were thought to be "ventricular rhythm" none of these telemetry findings were correlated with his syncope and presyncope. He remained orthostatic and telephone consultation with cardiology was obtained. There was no indication for transfer for pacemaker or further electrophysiological workup. Syncopal symptoms with orthostatic hypotension persisted. He was started on Midodrine and had good effect with a dose of 10mg, able to maintain standing BP of 101 - ALLERGIES Allergies/Adverse Reactions: Allergies Allergy/AdvReac Type Severity Reaction Status Date / Time No Known Drug Allergies Allergy Verified 12/26/23 10:09 - MEDICATIONS Home Medications: Ambulatory Orders Medication Instructions Recorded Confirmed Finasteride [Proscar] 5 mg PO QPM 02/07/23 02/18/24 Fluticasone/Vilanterol [Breo 1 puffs INH DAILY 02/07/23 02/18/24 Ellipta 100-25 Mcg Inhalr] Levothyroxine [Synthroid] 75 mcg PO QDAC #30 tab 02/14/23 02/18/24 Atorvastatin Calcium 40 mg PO QPM 02/18/24 02/18/24 Vit A/Vit C/D3/Zinc/Herbal 331 1 cap PO DAILY 02/18/24 02/18/24 [Alive Immune Health Softgel] Calcium Carbonate [Tums (Calcium 500 mg PO BID tab 02/25/24 Carbonate 500mg)] Cholecalciferol [Vitamin D3] 25 mcg PO DAILY tab 02/25/24 Metoprolol Tartrate [Lopressor] 25 mg PO BID #60 tab 02/25/24 Midodrine [ProAmantine] 10 mg PO 0600,1200,1800 #120 tab 02/25/24 - LABS Result Diagrams: 02/25/24 05:48 02/25/24 05:48 - SEPSIS Current Stage of Sepsis: Ruled out
[2024-02-25 18:05] VITALS: BP 129/64
== END 2024-02-25 19:20 | disposition home health service (06) | DRG 177 ==
LOC: EDUNIT# → ED 00:01 → MS2 02:40 → OBSVTOIN 14:26
PROVIDERS: ADMIT Internal Medicine; ATTEND Physician Assistant Medical
DX: U07.1 COVID-19 (principal); J18.9 Pneumonia, unspecified organism; J44.0 Chronic obstructive pulmonary disease with (acute) lower respiratory infection; J44.1 Chronic obstructive pulmonary disease with (acute) exacerbation; I95.1 Orthostatic hypotension; R94.31 Abnormal electrocardiogram [ECG] [EKG]; I95.9 Hypotension, unspecified; R55 Syncope and collapse; R19.5 Other fecal abnormalities; E87.6 Hypokalemia; E03.9 Hypothyroidism, unspecified; N40.0 Benign prostatic hyperplasia without lower urinary tract symptoms; F17.200 Nicotine dependence, unspecified, uncomplicated; Z20.818 Contact with and (suspected) exposure to other bacterial communicable diseases; Z20.828 Contact with and (suspected) exposure to other viral communicable diseases; I48.91 Unspecified atrial fibrillation; I10 Essential (primary) hypertension; E78.5 Hyperlipidemia, unspecified; N40.1 Benign prostatic hyperplasia with lower urinary tract symptoms; I49.3 Ventricular premature depolarization; S00.81XA Abrasion of other part of head, initial encounter; S40.021A Contusion of right upper arm, initial encounter; S50.311A Abrasion of right elbow, initial encounter; W19.XXXA Unspecified fall, initial encounter; Y92.230 Patient room in hospital as the place of occurrence of the external cause; R19.7 Diarrhea, unspecified; R33.8 Other retention of urine; R53.1 Weakness; R53.83 Other fatigue; R73.9 Hyperglycemia, unspecified; Z79.82 Long term (current) use of aspirin; Z79.890 Hormone replacement therapy; Z79.899 Other long term (current) drug therapy
CPT/HCPCS: 36415; 70450; 71045; 80048; 80053; 81001; 82533; 83036; 83690; 83735; 83880; 84443; 84484; 85025; 87040; 87070; 87205; 87493; 87633; 93005; 93307; 94640; 96360; 96361; 97162; 99285; A9270; G0378; J0282; J1650; J7626; 87086; J8499